=== PATIENT | female | born 1950 | race Caucasian/White ===

== ENCOUNTER 2016-11-03 08:34 | Inpatient (IN) | payer OTHER ==
[2016-11-03] VITALS (10 sets, daily range): BP systolic 119–147; BP diastolic 78–94; PULSE 65–82; RESP 14–20; O2SAT 96–100
[~2016-11-03] VITALS: Ht 165.1 cm; Wt 54.6 kg
--- NOTE | 2016-11-03 09:01 | ED.REPORT ---
HPI-General Illness Date of Service Nov 03, 2016 ED Provider: Lin Muñoz MD Patient is a 66 year old female who presents to the ED complaining of constant, diffuse lower back pain onset approximately 2 weeks ago . She describes her pain as waxing and waning but unlike today, she is normally able to tolerate it. She describes the onset of her pain as gradual that started as body aches and then localizing to her lower back area. She has not noticed anything that relieves or exacerbates her pain. Associated symptoms include loss of appetite and chills. She denies any mechanism of injury, change in bowel activity, weight gain, SOB, cough, palpitations, dysuria, or any other symptoms. She tried to see her PCP one week ago for her symptoms but was unable to get an appointment. She was seen at Urgent Care yesterday and her blood work raised concern for her kidney functioning. She was directed to come to the ED last night from Urgent Care but declined. Nursing Notes Stated Complaint: ABDOMINAL PAIN/POSS KIDNEY INFECTION Chief Complaint: General Complaint Nursing Notes Reviewed: Yes Allergies: Coded Allergies: clindamycin (Verified Allergy, Unknown, 11/03/16) prednisone (Verified Allergy, Unknown, 11/03/16) acetaminophen (Verified Adverse Reaction, Intermediate, Nausea, "it does nothing", 11/03/16) aspirin (Verified Adverse Reaction, Intermediate, 11/03/16) ibuprofen (Verified Adverse Reaction, Intermediate, Nausea, "It doesn't work", 11/03/16) permethrin (Verified Adverse Reaction, Intermediate, Nausea, 11/03/16) codeine (Verified Adverse Reaction, Unknown, Nausea,Vomiting, flushed, ) morphine (Verified Adverse Reaction, Unknown, "It didn't work at all", ) Scheduled Calcium Carbonate/Vitamin D3 (Calcium + Vitamin D Tablet) 1 Each Tablet 1 EACH PO DAILY Multivits-Min/FA/Lycopene/Lut (Centrum Silver Tablet) 1 Each Tablet 1 EACH PO DAILY General Time Seen by MD: 08:58 Chief Complaint Back pain Hx Obtained From: Patient Arrived By: Walk-in Sudden in Onset?: No Onset Occurred: More than a week ago... (2 weeks) Symptom Duration: Since onset Severity: Current: Moderate Severity: Maximum: Moderate Recent Healthcare: Recent doctor visit (visited yesterday) Similar Sx Previous: No Past Medical History Past Medical History Notes: Dr. Wong Hendrix is PCP Does not want morphine, but reports that narcotics are fine. Cannot take Aspirin, Ibuprofen, or Tylenol. Aspirin causes rectum bleeding. Ibuprofen and Tylenol cause nausea and possible vomit. Past Medical History No Prx medications. No other pertiennt medical history. Mamgogram and coloncospoy routinely. Allergic to unspecified antibiotic. Reports: Cancer (Breast) Past Surgical History Surgical removal of breast cancer Reports: Cholecystectomy (1974), Denies: Hysterectomy Family History Son has cancer. Smoking History Never Smoker Social History Alcohol Use: "Social" (shot glass of beer) Ambulatory Status Independent Review of Systems Loss of appetite. Denies change in bowel activity. Denies weight gain Denies heat flashes Full Review of Systems Constitutional: Reports: Chills, Denies: Recent wt loss Respiratory: Denies: Non-productive cough, Shortness of breath Cardiovascular: Denies: Palpitations Female: Denies: Dysuria Musculoskeletal: Reports: Back pain Complete sys rev & neg: except as marked. Physical Exam Vital Signs Vital Signs Date Time Temp Pulse Resp B/P Pulse Ox O2 Delivery O2 Flow Rate FiO2 11/03/16 11:18 36.0 73 16 119/78 99 Room Air 11/03/16 08:45 36.7 82 14 123/90 99 Room Air Initial VS: Reviewed General/Constitutional: Awake, Alert Appearance / Presentation: Positive: Frail Head / Eyes: Atraumatic, Normocephalic, PERRL, EOMI Mouth: Positive: Mucous membranes dry Respiratory / Chest: Atraumatic, Breath sounds NL, Breath sounds = bilat, No respiratory distress, No rales, No rhonchi, No wheezing Cardiovascular: Heart rate NL, Regular rhythm, Heart sounds NL, No murmurs Organomegaly / Mass / Hernia: Positive: Mass present (Mass in right flank into right lower quadrant that is tender.) Dramatic right flank pain in abdomen. CVA tenderness ,sharp on right side. Lower Extremity / Pelvis / MS: Neurologic intact, No edema Skin: Atraumatic, Color NL, Warm, Dry Neurologic: Oriented X3, Speech NL Abnormal Mood/Affect: Positive: Flat affect Interpretation & Diagnostics Lab Results Interpretation Result Diagram: 11/03/16 0950 11/03/16 1633 Test 11/03/16 09:30 11/03/16 09:32 11/03/16 09:50 Urine Random Creatinine 42mg/dL (15-278) Urine Random Sodium 10mEq/L Urine Color Yellow (YELLOW) Urine Appearance Clear (CLEAR,HAZY) Urine pH 6.0 (5.0-8.0) Urine Specific Usk 1.005 (1.003-1.035) Urine Protein Tracemg/dL (NEG,TRACE) Urine Glucose (UA) Negativemg/dL (NEGATIVE) Urine Ketones Negativemg/dL (NEGATIVE) Urine Occult Blood Trace (NEGATIVE) Urine Nitrite Negative (NEGATIVE) Urine Bilirubin Negative (NEGATIVE) Urine Urobilinogen Normalmg/dL (NORMAL) Urine Leukocyte Esterase Large (NEGATIVE) Urine RBC 0-2/hpf (0-2) Urine WBC 11-50/hpf (0-5) Urine Epithelial Cells Occasional/hpf (NONE-MOD) Urine Crystals None seen (NONE SEEN) Urine Bacteria Moderate/hpf (NONE-FEW) Urine Hyaline Casts None/lpf (NONE) Urine Granular Casts None seen (NONE SEEN) Urine Waxy Casts None seen (NONE SEEN) Urine Red Blood Cell Casts None seen (NONE SEEN) Urine White Blood Cell Casts None seen (NONE SEEN) Urine Mucus None seen (None Seen) Urine Trichomonas None seen (NONE SEEN) Urine Yeast None (NONE SEEN) Urinalysis Comment None Urine Culture Reflexed Indicated White Blood Count 19.1th/mm3 (3.8-10.1) Red Blood Count 3.81mil/mm3 (3.90-5.20) Hemoglobin 11.8g/dL (12.0-15.6) Hematocrit 32.8% (35.0-46.0) Mean Corpuscular Volume 86.1fL (81-100) Mean Corpuscular Hemoglobin 31.0pg (27.0-35.0) Mean Corpuscular Hemoglobin Concent 36.0% (32.0-37.0) Red Cell Distribution Width 13.6% (12.3-15.4) Platelet Count 525bil/L (150-400) Neutrophils (%) (Auto) 91% (40-74) Lymphocytes (%) (Auto) 2% (14-46) Monocytes (%) (Auto) 4% (4-12) Eosinophils (%) (Auto) 0% (0-5) Basophils (%) (Auto) 0% (0-3) Metamyelocytes % 2% (0-0) Myelocytes % 1% (0-0) Prothrombin Time 11.5sec (8.1-12.5) Prothromb Time International Ratio 1.07ratio Activated Partial Thromboplast Time 33.6sec (22.8-33.0) Urine Osmolality 225mOs/kH2O (250-1200) Osmolality 286 (275-300) Lactic Acid Level 0.7mmol/L (0.4-2.0) Magnesium Level 2.5mg/dL (1.6-2.6) Total Bilirubin 1.4mg/dL (0.0-1.2) Aspartate Amino Transf (AST/SGOT) 21U/L (0-50) Alanine Aminotransferase (ALT/SGPT) 27U/L (0-32) Alkaline Phosphatase 125U/L (25-165) Total Protein 6.1g/dL (6.4-8.4) Albumin 2.8g/dL (3.4-5.0) Lipase 194U/L (13-60) Procalcitonin 2.88ng/mL (0.00-0.08) ECG Interpretation ECG Interpretation: Rate is 77. Left atrial enlargement. No ischemia. Time: 10:54 Interpreted by: ED physician CT Abd / Pelvis Interpretation IMPRESSION: 1. Right renal enlargement, suggestive of infarct versus edema versus inflammation/infection. 2. No hydronephrosis. 3. Appendix not seen. No evidence of appendicitis. Dictated by: Sony Bourgeois M.D. on 11/03/2016 at 12:15 Re-Eval/Medical Decision Med Decision/Clinical Course 11:00 labs [facility] available: lipase 157 Na 121 Creat 3.98/BUN 89 K 3.0 h/h platelets 527 WBC 19.2 with 80%PMN Seen at urgent care yesterday with recommendation to come to ER for additional eval and admit. Complaining of flank back low pelvic pain. Labs yesterday revealed an elevated white count hyponatremia mild anemia thrombocytosis and an elevated lipase. CT scan of the belly does show right renal inflammation unclear etiology. She does have acute renal failure. Does not complain of dysuria but does have bacteria in her urine. In light of the elevated white count and renal pathology appreciated on CT scan she is started on Zosyn for presumed UTI and will need additional workup. Unclear explanation for the hyponatremia acute renal failure and hematologic abnormalities. May benefit from oncology consultation as well. Source of Hx: Old records Time of Eval: 10:33 Re-Evaluation/Progress Note: Rechecked patient who has not consumed contrast yet Explained that kidneys are not functioning like they are supposed to. Explained plan for admission. Patient understands and agrees with the plan. All questions addressed. Consultation #1: Referral / Consult Name: Dona Pineda MD Consulted With: Hospitalist Call Returned at: 13:02 Note: Discussed patient case with Dr. Pineda who accepts patient admit. Consultation #2: Referral / Consult Name: Andres Fabian MD Consulted With: Nephrology Call Returned at: 13:08 Note: Discussed patient case with Dr. Lucas who agrees to consult on the patient. Counseled Regarding: Diagnosis, Lab results, Need for follow-up, Need for admission Discharge & Departure Primary Impression: Pancreatitis Chronicity: acute Pancreatitis type: unspecified pancreatitis type Acute pancreatitis complication: unspecified Qualified Code: K85.90 - Acute pancreatitis without necrosis or infection, unspecified Additional Impressions: Hyponatremia Acute renal failure Acute renal failure type: unspecified Qualified Code: N17.9 - Acute kidney failure, unspecified Leukocytosis Leukocytosis type: unspecified Qualified Code: D72.829 - Elevated white blood cell count, unspecified Thrombocytosis UTI (urinary tract infection) Urinary tract infection type: site unspecified Hematuria presence: without hematuria Qualified Code: N39.0 - Urinary tract infection, site not specified Disposition: ADMITTED TO HOSPITAL Discharge Condition All VS Reviewed: Yes Condition: Stable Referrals: NOPCP (PCP) James Hendrix MD Attestation Portions of this note were transcribed by Kev Armas and Tucker Garcia. I, Dr. Muñoz personally performed the history, physical exam and medical decision- making; I reviewed and confirmed the accuracy of the information in the transcribed note. Signed by: Venecia Londono, 11/03/2016, 1318. copies to: James Hendrix MD, Shawna L MD Nov 03, 2016 09:01 Kev Armas Nov 03, 2016 09:07 TCUKER GARCIA Nov 03, 2016 13:54 blood cell count, unspecified Thrombocytosis UTI (urinary tract infection) Urinary tract infection type: site unspecified Hematuria presence: without hematuria Qualified Code: N39.0 - Urinary tract infection, site not specified Disposition: ADMITTED TO HOSPITAL Discharge Condition All VS Reviewed: Yes Condition: Stable Referrals: NOPCP (PCP) James Hendrix MD Attestation Portions of this note were transcribed by Kev Armas and Tucker Garcia. I, Dr. Muñoz personally performed the history, physical exam and medical decision- making; I reviewed and confirmed the accuracy of the information in the transcribed note. Signed by: Venecia Londono, 11/03/2016, 1318. copies to: James Hendrix MD, Shawna L MD Nov 03, 2016 09:01 Kev Armas Nov 03, 2016 09:07 TUCKER GARCIA Nov 03, 2016 13:54
[2016-11-03] MEDS ORDERED: 0.9% Sodium Chloride 1,000 ML IV ONE ×2 (09:27→14:35)
[2016-11-03] MEDS ORDERED: Ondansetron 2 mg/mL 2 mL Inj IVPUSH ONE (09:30)
[2016-11-03 09:46] LABS: APPEARANCE,URINE CLEAR (CLEAR,HAZY); COLOR,URINE YELLOW (YELLOW); OCCULT BLOOD,URINE TRACE (NEGATIVE); UROBILINOGEN,URINE NORMAL (NORMAL)
[2016-11-03 09:59] LABS: Mean Corpuscular Volume 86.1 fL (81-100); Platelet Count 525 bil/L (150-400)
[2016-11-03] MEDS: HYDROmorphone 0.5 mg/0.5 mL iSecure Syringe IVPUSH PRN ×3 (10:04→15:17)
[2016-11-03 10:14] LABS: INR 1.07 ratio
[2016-11-03] MEDS ORDERED: Iohexol 300 mg/mL 30 mL Inj PO ONE (10:15)
[2016-11-03 10:49] LABS: BASOPHILS % (AUTO) 0 % (0-3); EOSINOPHILS % (AUTO) 0 % (0-5); MONOCYTES % (AUTO) 4 % (4-12); NEUTROPHILS % (AUTO) 91 % (40-74)
[2016-11-03 10:57] LABS: Magnesium 2.5 mg/dL (1.6-2.6)
[2016-11-03] MEDS ORDERED: Piperacillin-Tazo 3.375 Gm Inj 3.375 GM in Dextrose 5% Minibag Plus 50 ML IV ONE (11:20)
--- NOTE | 2016-11-03 12:19 | DRSVH ---
PROCEDURE: CT ABDOMEN AND PELVIS WITHOUT CONTRAST ([id number]) INDICATIONS: Right CVA/Right lower quadrant pain TECHNIQUE: After the administration of oral contrast, 5 mm thick sections acquired from the diaphragms to the sy mphysis. 5 mm coronal and sagittal reformats were performed. For radiation dose reduction, the foll owing was used: automated exposure control, adjustment of mA and/or kV according to patient size. COMPARISON: None. FINDINGS: Image quality: Excellent. ABDOMEN: Lung bases: Lung bases are clear. Heart size is normal. Solid organs: Liver and spleen are normal in size. Gallbladder is surgically absent. Pancreas is n ormal in size. No adrenal nodules. The right kidney is enlarged, and is within the right lower quadr ant/right hemipelvis. Mild perinephric fat stranding is present bilaterally. No hydronephrosis. Peritoneum and bowel: Bowel loops demonstrate normal wall thickness and caliber. No free fluid or a ir. Appendix not seen. No evidence of appendicitis. Nodes and vessels: No retroperitoneal or mesenteric adenopathy by size criteria. Aorta and inferior vena cava are normal in size. Miscellaneous: No ventral hernias. PELVIS: Genitourinary: Bladder wall thickness is normal. Miscellaneous: No inguinal hernias or adenopathy. Bones: No suspicious bony lesions. No vertebral body compression fractures. IMPRESSION: 1. Right renal enlargement, suggestive of infarct versus edema versus inflammation/infection. 2. No hydronephrosis. 3. Appendix not seen. No evidence of appendicitis. Dictated by: Sony Bourgeois M.D. on 11/03/2016 at 12:15 Approved by: Sony Bourgeois M.D. on 11/03/2016 at 12:18
[2016-11-03] MEDS ORDERED: Ondansetron 2 mg/mL 2 mL Inj IVPUSH PRN (13:15)
[2016-11-03] MEDS ORDERED: CALC-140 PO (13:16)
[2016-11-03] MEDS ORDERED: MULT-1073 PO (13:16)
[2016-11-03] MEDS: 0.9% Sodium Chloride 1,000 ML IV SCH ×2 (13:43→16:11)
--- NOTE | 2016-11-03 13:59 | PCM.HPMED ---
Subjective Date of Service Nov 03, 2016 Primary Provider: Admitting Physician: Primary Care Physician: Breana Attending Physician: History of Present Illness: Chief Complaint: Low back pain HISTORY was OBTAINED FROM PATIENT - poor historian / [employer] NOTES History of present illness: 66-year-old female, seen in urgent care yesterday for 2 week of back painfound to have hyponatremia and elevated creatinine at that time, presents to ER today with ongoing low back pain for 2 weeks, constant pain associated with intermittent worse pain, associated diffuse aches , no associated trauma. Drinking water with electrolytes, loss of appetite, chills. No dysuria, good UOP. no prior UTI, no prior vaginal yeast infection. thirsty. poor memory. no worsening of back pain w movement. right greater than left tenderness lower L paraspinous region In the ER Vital signs stable, Zosyn and Dilaudid 1 L normal saline and Zofran, Dr. Son from nephrology was called Review of Systems - none of the following - F/sick contact / wt change/ JONES / lightheaded / dizziness / sob / cough / cp / acid reflux / abdominal pain/n/v/ diarrhea / bleeding/bruising / leg swelling / change in voiding / yeast infections / rash Ambulates alone, shaky gait associated w. joint / arthritis FAMILY HX: Son with cancer hematologic SOCIAL HX: Social EtOH, ?more etoh to relieve current pain, [facility] MEDICATIONS: Coded Allergies: clindamycin (Verified Allergy, Unknown, 11/03/16) codeine (Verified Allergy, Unknown, 11/03/16) morphine (Verified Allergy, Unknown, 11/03/16) permethrin (Verified Allergy, Unknown, 11/03/16) prednisone (Verified Allergy, Unknown, 11/03/16) Tylenol aspirin ibuprofen PAST MEDICAL/SURGICAL HISTORY: Cholecystectomy breast cancer, hxof tamoxifen finished course TBI x 3 anxiety arthritis vsion impairment Exam on admission: on room air NAD A and O x 3 mood affect WNL NC/AT / No icterus / No injected eyes / EOMI PERRL / No pharyngeal lesions/ No oral lesions / hearing intact Supple neck CTAB equal chest rise / no accessory muscle use / speaks in full sentences / no RRW RRR S1 S2 / no MRG / 2+ radial pulses Soft nt nd + BS no hepatosplenomegaly Lower extremities - No edema No cyanosis No ecchymosis No rash / No jaundice WALLACE Symmetrical facies sits up by self tender to paraspinous lower L spine/sacroiliac/iliac crest area right greater than left, no pain to costoverterbral areas STUDIES: lactic acid normal UA positive leukocytosis, moderate bacteria, no yeast CULTURE - urine, bloody pending LFT bilirubin 1.4, lipase 194 Cr 3.1 INR 1.07, PTT 33.6 IMAGING: PROCEDURE: CT ABDOMEN AND PELVIS WITHOUT CONTRAST ([id number]) INDICATIONS: Right CVA/Right lower quadrant pain TECHNIQUE: After the administration of oral contrast, 5 mm thick sections acquired from the diaphragms to the symphysis. 5 mm coronal and sagittal reformats were performed. For radiation dose reduction, the following was used: automated exposure control, adjustment of mA and/or kV according to patient size. COMPARISON: None. FINDINGS: Image quality: Excellent. ABDOMEN: Lung bases: Lung bases are clear. Heart size is normal. Solid organs: Liver and spleen are normal in size. Gallbladder is surgically absent. Pancreas is normal in size. No adrenal nodules. The right kidney is enlarged, and is within the right lower quadrant/right hemipelvis. Mild perinephric fat stranding is present bilaterally. No hydronephrosis. Peritoneum and bowel: Bowel loops demonstrate normal wall thickness and caliber. No free fluid or air. Appendix not seen. No evidence of appendicitis. Nodes and vessels: No retroperitoneal or mesenteric adenopathy by size criteria. Aorta and inferior vena cava are normal in size. Miscellaneous: No ventral hernias. PELVIS: Genitourinary: Bladder wall thickness is normal. Miscellaneous: No inguinal hernias or adenopathy. Bones: No suspicious bony lesions. No vertebral body compression fractures. IMPRESSION: 1. Right renal enlargement, suggestive of infarct versus edema versus inflammation/infection. 2. No hydronephrosis. 3. Appendix not seen. No evidence of appendicitis. Active issues and reason for admission Left shift, leukocytosis, abnormal right kidney findings, acute kidney injury, treating as UTI --rocephine for now, s/p zosyn in ER Hyponatremia and [place] due to dehydration --IVF NS 125 / hr, pending nephrology, pending TSH, pending U lytes Thrombocytosis, likely reactive Mild normocytic anemia, monitor --pending TSH elevated lipase, monitor --island chart consistent w/ hx of EtOH use, prior cholecystectomy, no abdominal pain/no vomiting, unlikely pancreatitis --advance diet Chronic issues known prior to admission, present on admission EtOH social, and for current pain, no withdrawal hx adverse reactions w/ NSAID-LGI hx and morphine poor historian, TBI hx --ativan/dilaudid Diet clear then regular DVT prophylaxis heparin scd ambulate Code full Disposition Assessment and plan were discussed with patient Allergies Coded Allergies: clindamycin (Verified Allergy, Unknown, 11/03/16) prednisone (Verified Allergy, Unknown, 11/03/16) acetaminophen (Verified Adverse Reaction, Intermediate, Nausea, "it does nothing", 11/03/16) aspirin (Verified Adverse Reaction, Intermediate, 11/03/16) ibuprofen (Verified Adverse Reaction, Intermediate, Nausea, "It doesn't work", 11/03/16) permethrin (Verified Adverse Reaction, Intermediate, Nausea, 11/03/16) codeine (Verified Adverse Reaction, Unknown, Nausea,Vomiting, flushed, ) morphine (Verified Adverse Reaction, Unknown, "It didn't work at all", ) H Social History Smoking Status: Never Smoker Exam Vital Signs Vital Sign - Last Date Time Temp Pulse Resp B/P Pulse Ox O2 Delivery O2 Flow Rate FiO2 11/03/16 11:18 36.0 73 16 119/78 99 Room Air Lab and Diagnostics Result Diagram: 11/03/16 0950 11/03/16 0950 Dona Pineda MD Nov 03, 2016 13:12
--- NOTE | 2016-11-03 14:11 | NUR ---
Admit nurse note Admission assessment completed in the ER. Pt. expresses frustration about being asked a lot of questions by multiple people and c/o feeling fatigued and overwhelmed to the point that it feels hard to concentrate enough to hear. I have to sit quite close to pt. in order for her to hear my questions, but she states she does not usually experience difficulty hearing. Pt. c/o feeling unwell x 3 weeks. During that three weeks she has been drinking much less alcohol, "about a third of a bottle." PT. 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 She states she has advance directives at the [employer] office in [place], does not have a copy available for use in hospital, but would prefer they not be contacted for a copy unless her state of health is seriously in jeopardy. She c/o feeling dehydrated, and her lips appear dry and cracked. Drink of water given per diet order and NS increased to bolus based on Dr. Pineda's verbal instructions. Allergies verified and sticker placed on name band. Med history obtained based on pt. report. PT. oriented to room and plan of care. Report given to Lupe Willingham.
--- NOTE | 2016-11-03 15:03 | NUR ---
Admit: Patient arrived to [facility] @ approx 1500 via wheelchair. Ambulated to toilet, then to bed. Patient states she is feeling "weak". Report low back pain 8/10 on pain scale. Denies nausea, dizziness, lightheadedness. Requested patient to call for assistance to BR. Patient agreed. Call light within reach. Addendum: 11/03/16 at 1520 by BETO GAMBOA RN Dilaudid administered for pain. Will continue to assess.
--- NOTE | 2016-11-03 15:20 | NUR ---
Off Unit: Transported to [facility] via wheelchair accompanied by transporter @ approx 1521.
--- NOTE | 2016-11-03 15:41 | PCM.CHPMED ---
Subjective Date of Service: Nov 03, 2016 Provider requesting consult: Dona Pineda MD Primary Physician: Admitting Physician: Dona Pineda MD Primary Care Physician: Breana Attending Physician: Dona Pineda MD Admit Status: From the Emergency Department Chief Complaint: Chief Complaint: back pain and chills History of Present Illness: Patient is a previously healthy 66yof with no significant notable past medical history. She is currently on no medication and denies any chronic illness. The patient states that ten days ago she began to notice back pain, which has progressively become worse. The pain does not appear to be position dependent and while it gets slightly better on occasion the trend is worse. The patient denies any injury. She states that she has developed chills the last several days but she denies any difficulty with urination, and urinary urgency or frequency. She denies chronic urinary track infections in the past. She has never been told she had blood or protein in her urine. She denies past medical history including diabetes, hypertension, gout, hepatitis, lupus, kidney stones. She has been drinking plenty of fluids including reportedly 5-6 16 ounce Smart barth yesterday. She patient denies taking ibuprofen or naproxen for the pain, she states that she has been drinking half a beer a day for the pain. Review of Systems: A comprehensive review of system was preformed and all are negative except for what PMH Past Medical History Dr. 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 breast cancer, hx of tamoxifen finished course TBI x 3 anxiety arthritis vision impairment Surgical History open cholecystectomy and appendectomy in s Surgical removal of breast cancer Home Medications vitamins Allergies: Coded Allergies: clindamycin (Verified Allergy, Unknown, 11/03/16) prednisone (Verified Allergy, Unknown, 11/03/16) acetaminophen (Verified Adverse Reaction, Intermediate, Nausea, "it does nothing", 11/03/16) aspirin (Verified Adverse Reaction, Intermediate, 11/03/16) ibuprofen (Verified Adverse Reaction, Intermediate, Nausea, "It doesn't work", 11/03/16) permethrin (Verified Adverse Reaction, Intermediate, Nausea, 11/03/16) codeine (Verified Adverse Reaction, Unknown, Nausea,Vomiting, flushed, ) morphine (Verified Adverse Reaction, Unknown, "It didn't work at all", ) Family History Family History mother had diabetes mellitus son has a rare blood born cancer Social History Hx Alcohol Use: YesAlcoholic Drinks Per Day: regular light drinkerHx Substance Use: NoHx Tobacco Use: No Smoking Status: Never Smoker Living Arrangement: with Family (currently in [place] with her son while he has treatment for cancer) Exam Vital Signs Vital Sign - Last Date Time Temp Pulse Resp B/P Pulse Ox O2 Delivery O2 Flow Rate FiO2 11/03/16 11:18 36.0 73 16 119/78 99 Room Air Additional Information: general: thin female appearing approximately the stated age alert and oriented in no acute distress in ED Eyes: PERRLA, EOMI, anicteric sclera, noninjected conjunctiva HENT: NC/AT, MMM without central cyanosis, no cobblestoning mucosa Neck: supple, no lymphadenopathy, trachea midline CV: RRR, no murmurs rubs or gallops Lungs: CTAB, without wheezing rales or rhonchi Abdomen: diagonal surgical scar consistent with prior cholecystectomy, hyperactive bowel sounds, nontender without organomegaly or masses Back: no pain on palpation of the spine, positive yvan's sign with percussion of left and right flanks Ext: pulses intact bilaterally at radial and dorsalis pedis without edema, cyanosis or clubbing Skin: Warm and dry : no greene in place Neuro: no focal neurologic deficit, mild delayed speech and very mild slurring or words Psych: normal mood and affect Lab and Diagnostics Result Diagram: 11/03/16 0950 11/03/16 0950 X-Rays, CTs and MRIs CT ABDOMEN AND PELVIS WITHOUT CONTRAST ([id number]) IMPRESSION: 1. Right renal enlargement, suggestive of infarct versus edema versus inflammation/infection. 2. No hydronephrosis. 3. Appendix not seen. No evidence of appendicitis. Dictated by: Sony Bourgeois M.D. on 11/03/2016 at 12:15 Approved by: Sony Bourgeois M.D. on 11/03/2016 at 12:18 Assessment & Plan Assessment Patient is a previously healthy 66yof with no significant notable past medical history states that ten days ago she began to notice back pain, which has progressively become worse. 1. pyelonephritis - SIRS criteria not met and normal lactic acid 0.7 - patient has positive Yvan's sign on physical exam - UA shows WBC and bacteria - CBC with 19.1k WBC consistent with infection and 525k PLTs likely stress phase reactant - CT shows perinephric fat stranding and other inflammatory changes consistent with infection, incidental finding of irregular location of right kidney in right lower quadrant which the patient has never heard before - received a dose of Zosyn in the ED - switch to a cephalosporin like ceftriaxone 2g every 24hours to avoid nephrotoxic effects of Zosyn 2. acute kidney injury - no history of chronic kidney disease reported but no records available - no risk factors for chronic kidney disease obtained in history - Creatinine of 3.15 at admission - physical exam patient appears mildly hypovolemic with good blood pressure - FENA at admission of 0.6% with urine sodium of 10 consistent with pre-renal/ dehydration - NS at 80mL/hr and recheck sodium Q6 to avoid over correction of hyponatremia - NS 2L given in ED - renal US and doppler ordered - urine osmolarity 225 and sodium osmolarity 286 consistent with dehydration and hemoconcentration - orthostatic BP measure ordered 3. hyponatremia and hypochloremia - CMP Sodium 125 - avoid over correction more than 8 mEq per 24hr period - NS at 80mL/hr and recheck sodium Q6 to avoid over correction of hyponatremia 4. hypokalemia - potassium of 3.4 at admission - 40mEq ordered - replete as necessary Problems: Pain Evaluation: Adequate Pain Control Resuscitation Status: CPR: Attempt Resuscitation Antoni Quintero DO Nov 03, 2016 14:11
[2016-11-03 15:42] LABS: OSMOLALITY, URINE 225 mOs/kH2O (250-1200)
[2016-11-03] MEDS ORDERED: Potassium Chloride 20 mEq/15 mL 15mL Oral Soln PO ONE (16:10)
--- NOTE | 2016-11-03 16:13 | DRSVH ---
PROCEDURE: US RENAL SONOGRAM INDICATIONS: suspected renal vein thrombosis and infarction. TECHNIQUE: Real-time scanning was performed of the kidneys and bladder, with image documentation. COMPARISON: [facility], CT, CT ABD PELVIS WO CON, 11/03/2016, 12:00. FINDINGS: Kidneys: Kidneys are normal in size. Right kidney measures 12.0 cm long; left kidney measures 11.9 cm long. Right renal cortical thickness is 1.6 cm; left renal cortical thickness is 1.6 cm. Renal c ortical echotexture is normal. No hydronephrosis or nephrolithiasis. No suspicious solid mass lesio ns. Color flow Doppler demonstrates normal renal perfusion bilaterally and renal veins are patent. Bladder: Pre-void bladder volume is 67 mL. Post-void residual is 0 mL. Pre-void images demonstrate no intraluminal masses or stones. On pre-void images, left ureteral jets are noted with color Doppl er interrogation. (Of note, ureteral jets may not be detectable in up to 25% of cases due to insuffi cient differences in specific gravity between ureteral and bladder urine). Miscellaneous: No free pelvic fluid. IMPRESSION: 1. Normal appearance of the kidneys bilaterally. 2. Doppler assessment demonstrating normal renal perfusion and patency of the renal veins bilaterally . 3. The appearance of enlargement of the right kidney on a recent CT scan is likely caused by orientat ion which is mildly rotated. Dictated by: Gabe Rosenthal [facility] Interpreted: Rod Nelson MD on 11/03/2016 at 16:06 Transcribed by: TIMOTHY on 11/03/2016 at 16:13 Approved by: Rod Nelson M.D. on 11/03/2016 at 16:43
[2016-11-03] MEDS: Heparin 5,000 Unit/mL Inj SUBQ SCH (16:22)
--- NOTE | 2016-11-03 17:22 | NUR ---
Blood Work: Dr Fabian notified of BMP and D-dimer results.
[2016-11-03] MEDS ORDERED: Potassium Chloride 20 mEq SR Tablet PO ONE (21:00)
--- NOTE | 2016-11-03 22:59 | NUR ---
Activity Received report at 2010, pt alert and oriented but tired. Reported some nausea but ate saltines w/o issue. Will monitor, left room with call light at bedside.
[2016-11-04] VITALS (8 sets, daily range): BP systolic 127–141; BP diastolic 77–91; PULSE 73–83; RESP 16–20; O2SAT 97–100
[2016-11-04] MEDS: Heparin 5,000 Unit/mL Inj SUBQ SCH ×3 (00:08→20:03)
--- NOTE | 2016-11-04 05:19 | NUR ---
Diarrhea Pt complained of diarrhea since the afternoon, spoke with night hospitalist, will do stool culture. Will monitor.
[2016-11-04] MEDS: HYDROmorphone 0.5 mg/0.5 mL iSecure Syringe IVPUSH PRN ×3 (05:54→20:04)
[2016-11-04 06:08] LABS: Mean Corpuscular Hemoglobin 30.6 pg (27.0-35.0); Mean Corpuscular Volume 89.1 fL (81-100); Platelet Count 640 bil/L (150-400)
[2016-11-04 06:35] LABS: BASOPHILS % (AUTO) 0 % (0-3); EOSINOPHILS % (AUTO) 0 % (0-5); MONOCYTES % (AUTO) 6 % (4-12); NEUTROPHILS % (AUTO) 80 % (40-74)
[2016-11-04] MEDS: cefTRIAXone Inj 2,000 MG in Dextrose 5% Minibag Plus 50 ML IV SCH (07:49)
--- NOTE | 2016-11-04 09:03 | DRSVH ---
PROCEDURE: X-RAY CHEST ONE VIEW, PORTABLE ([id number]) INDICATIONS: sepsis TECHNIQUE: One view of the chest was acquired. COMPARISON: [facility], , CHEST 2 VIEW, 07/05/2016, 15:18. FINDINGS: Surgical changes and devices: Right breast and axillary surgical clips. Lungs and pleura: No pleural effusions or pneumothorax. Lungs are clear. Mediastinum: Mediastinal contours appear normal. Heart size is normal. Bones and chest wall: No suspicious bony lesions. Overlying soft tissues appear unremarkable. IMPRESSION: No acute cardiopulmonary disease. Dictated by: Gabe Rosenthal [facility] Interpreted: Kristina Rodriguez MD on 11/04/2016 at 9:02 Transcribed by: SILVER on 11/04/2016 at 9:03 Approved by: Kristina Rodriguez MD, PhD on 11/04/2016 at 16:43
[2016-11-04 09:15] LABS: Free Thyroxine Index 1.1 (1.2-4.9); Thyroxine (T4) 3.7 ug/dL (4.5-12.0)
--- NOTE | 2016-11-04 09:19 | DRSVH ---
PROCEDURE: US VENOUS LEG DUPLEX BILATERAL INDICATIONS: elevated D-dimer TECHNIQUE: Real-time imaging, as well as color and pulse Doppler interrogation, were performed of the deep veins of both legs from the inguinal ligament to the popliteal fossa. COMPARISON: None. FINDINGS: The deep veins are normally compressible, and free of intraluminal thrombus. Color and pu lse Doppler demonstrate normal phasic intravascular flow. There is normal augmentation response to d istal compression maneuver. IMPRESSION: 1. No evidence of deep venous thrombosis in the right or left lower extremity. Dictated by: Mateo Workman M.D. on 11/04/2016 at 9:11 Approved by: Mateo Workman M.D. on 11/04/2016 at 9:18
[2016-11-04] MEDS: 0.9% Sodium Chloride 1,000 ML IV SCH ×3 (12:39→21:15)
--- NOTE | 2016-11-04 14:38 | PCM.PNNEPH ---
Subjective Date of Service Nov 04, 2016 Subjective The patient states that she continues to be cold. The patient believes her back pain is improving at this point, and the pain is better on percussion of the kidneys. The patient denies any nausea or vomiting. Patient denies abdominal pain. Exam Vital Signs Vital Sign - Last Date Time Temp Pulse Resp B/P Pulse Ox O2 Delivery O2 Flow Rate FiO2 11/04/16 13:34 36.3 76 16 139/85 100 Room Air Intake and Output 11/03/16 11/03/16 11/04/16 Cumulative From/Thru 15:00 23:00 07:00 11/03/16 08:45 - 11/04/16 05:36 Intake Total 1000 ml 1673 ml 815 ml 3488 ml Output Total 250 ml 100 ml 350 ml Balance 750 ml 1573 ml 815 ml 3138 ml Intake Oral 500 ml 500 ml IV Total 1000 ml 1173 ml 815 ml 2988 ml Output Urine Total 250 ml 100 ml 350 ml # Bowel Movements 0 0 Exam general: thin female appearing approximately the stated age alert and oriented in no acute distress in ED Eyes: PERRLA, EOMI, anicteric sclera, noninjected conjunctiva HENT: NC/AT, MMM without central cyanosis, no cobblestoning mucosa Neck: supple, no lymphadenopathy, trachea midline CV: RRR, no murmurs rubs or gallops Lungs: CTAB, without wheezing rales or rhonchi Abdomen: diagonal surgical scar consistent with prior cholecystectomy, hyperactive bowel sounds, nontender without organomegaly or masses Back: no pain on palpation of the spine, positive yvan's sign with percussion of left and right flanks Ext: pulses intact bilaterally at radial and dorsalis pedis without edema, cyanosis or clubbing Skin: Warm and dry : no greene in place Neuro: no focal neurologic deficit, mild delayed speech and very mild slurring or words Psych: normal mood and affect Lab and Diagnostics Result Diagram: 11/04/16 0600 11/04/16 1120 X-Rays, CTs and MRIs CT ABDOMEN AND PELVIS WITHOUT CONTRAST ([id number]) IMPRESSION: 1. Right renal enlargement, suggestive of infarct versus edema versus inflammation/infection. 2. No hydronephrosis. 3. Appendix not seen. No evidence of appendicitis. Dictated by: Sony Bourgeois M.D. on 11/03/2016 at 12:15 Approved by: Sony Bourgeois M.D. on 11/03/2016 at 12:18 Additional Diagnostics US RENAL SONOGRAM IMPRESSION: 1. Normal appearance of the kidneys bilaterally. 2. Doppler assessment demonstrating normal renal perfusion and patency of the renal veins bilaterally. 3. The appearance of enlargement of the right kidney on a recent CT scan is likely caused by orientation which is mildly rotated. Dictated by: Gabe Rosenthal [facility] Interpreted: Rod Nelson MD on 11/03/2016 at 16:06 Transcribed by: TIMOTHY on 11/03/2016 at 16:13 Approved by: oRd Nelson M.D. on 11/03/2016 at 16:43 US VENOUS LEG DUPLEX BILATERAL IMPRESSION: 1. No evidence of deep venous thrombosis in the right or left lower extremity. Dictated by: Mateo Workman M.D. on 11/04/2016 at 9:11 Approved by: Mateo Workman M.D. on 11/04/2016 at 9:18 Plan Impression Patient is a previously healthy 66yof with no significant notable past medical history states that ten days ago she began to notice back pain, which has progressively become worse. 1. pyelonephritis 2. acute kidney injury 3. hyponatremia and hypochloremia 4. hypokalemia Plan: 1. pyelonephritis - SIRS criteria not met and normal lactic acid 0.7 - patient has positive Yvan's sign on physical exam - UA shows WBC and bacteria - CBC with 19.1k WBC consistent with infection and 525k PLTs likely stress phase reactant - CT shows perinephric fat stranding and other inflammatory changes consistent with infection, incidental finding of irregular location of right kidney in right lower quadrant which the patient has never heard before - received a dose of Zosyn in the ED - ceftriaxone 2g every 24hours to avoid nephrotoxic effects of Zosyn - Consider treating for 5-7 days for pyelonephritis 2. acute kidney injury - no history of chronic kidney disease reported but no records available - no risk factors for chronic kidney disease obtained in history - Creatinine of 3.15 at admission - physical exam patient appears mildly hypovolemic with good blood pressure - FENA at admission of 0.6% with urine sodium of 10 consistent with pre-renal/ dehydration - NS 2L given in ED - renal US and doppler show no renal artery stenosis and no urinary obstruction and normal size and shape and kidneys - urine osmolarity 225 and sodium osmolarity 286 consistent with dehydration and hemoconcentration - orthostatic BP measure ordered - NS at 60mL/hr and encourage oral fluid intake 3. hyponatremia and hypochloremia - CMP Sodium 125 at admission - Goal correction rate no more than 8 mEq per 24hr period - approximately increase of serum sodium by 8-9 mEq over the first 24 hours - NS at 60mL/hr and encourage oral fluid intake 4. hypokalemia - potassium of 3.4 at admission - replete as necessary Antoni Quintero DO Nov 04, 2016 14:38
--- NOTE | 2016-11-04 16:40 | PCM.PNMED ---
Subjective Date of Service Nov 04, 2016 Exam Vital Signs Vital Sign - Last Date Time Temp Pulse Resp B/P Pulse Ox O2 Delivery O2 Flow Rate FiO2 11/04/16 13:34 36.3 76 16 139/85 100 Room Air Intake and Output 11/03/16 11/03/16 11/04/16 Cumulative From/Thru 15:00 23:00 07:00 11/03/16 08:45 - 11/04/16 05:36 Intake Total 1000 ml 1673 ml 815 ml 3488 ml Output Total 250 ml 100 ml 350 ml Balance 750 ml 1573 ml 815 ml 3138 ml Intake Oral 500 ml 500 ml IV Total 1000 ml 1173 ml 815 ml 2988 ml Output Urine Total 250 ml 100 ml 350 ml # Bowel Movements 0 0 Lab and Diagnostics o/n admitted, resolving hypoNA , right back pain mildly better, improved mentation, good UOP on RA NAD A and O x 3 CTAB RRR mildly tender left iliac crest, more tender right iliac crest no edema Result Diagram: 11/04/16 0600 11/04/16 1120 X-Rays, CTs and MRIs CT ABDOMEN AND PELVIS WITHOUT CONTRAST ([id number]) IMPRESSION: 1. Right renal enlargement, suggestive of infarct versus edema versus inflammation/infection. 2. No hydronephrosis. 3. Appendix not seen. No evidence of appendicitis. Dictated by: Sony Bourgeois M.D. on 11/03/2016 at 12:15 Approved by: Sony Bourgeois M.D. on 11/03/2016 at 12:18 Cr 3.1 INR 1.07, PTT 33.6 Additional Diagnostics US RENAL SONOGRAM IMPRESSION: 1. Normal appearance of the kidneys bilaterally. 2. Doppler assessment demonstrating normal renal perfusion and patency of the renal veins bilaterally. 3. The appearance of enlargement of the right kidney on a recent CT scan is likely caused by orientation which is mildly rotated. Dictated by: Gabe Rosenthal [facility] Interpreted: Rod Nelson MD on 11/03/2016 at 16:06 Transcribed by: TIMOTHY on 11/03/2016 at 16:13 Approved by: Rod Nelson M.D. on 11/03/2016 at 16:43 US VENOUS LEG DUPLEX BILATERAL IMPRESSION: 1. No evidence of deep venous thrombosis in the right or left lower extremity. Dictated by: Mateo Workman M.D. on 11/04/2016 at 9:11 Approved by: Mateo Workman M.D. on 11/04/2016 at 9:18 Assessment & Plan Active issues and reason for admission Left shift, leukocytosis, abnormal right kidney findings, acute kidney injury, treating as UTI/pyelonephritis, improving --rocephine for now, s/p zosyn in ER --eventually call urology for f/u, no pcp --good uop and energy Hyponatremia and [place], improving --Cr 3 on admission --IVF NS 60cc/hr per nephrology, Thrombocytosis, likely reactive Mild normocytic anemia, monitor --pending TSH, low free T4 elevated lipase, bilirubin, monitor --island chart consistent w/ hx of EtOH use, prior cholecystectomy, no abdominal pain/no vomiting, unlikely pancreatitis --advance diet, tolerating Chronic issues known prior to admission, present on admission EtOH social, and for current pain, no withdrawal hx adverse reactions w/ NSAID-LGI hx and morphine poor historian, TBI hx --ativan/dilaudid Diet clear then regular DVT prophylaxis heparin scd ambulate Code full Disposition Assessment and plan were discussed with patient Resuscitation Status: CPR: Attempt Resuscitation Dona Pineda MD Nov 04, 2016 16:39 IMPRESSION: 1. Right renal enlargement, suggestive of infarct versus edema versus inflammation/infection. 2. No hydronephrosis. 3. Appendix not seen. No evidence of appendicitis. Active issues and reason for admission Left shift, leukocytosis, abnormal right kidney findings, acute kidney injury, treating as UTI/pyelonephritis --rocephine for now, s/p zosyn in ER --eventual call urology for f/u, no pcp Hyponatremia and [place], improving --Cr 3 on admission --IVF NS 60cc/hr per nephrology, Thrombocytosis, likely reactive Mild normocytic anemia, monitor --pending TSH elevated lipase, monitor --island chart consistent w/ hx of EtOH use, prior cholecystectomy, no abdominal pain/no vomiting, unlikely pancreatitis --advance diet Chronic issues known prior to admission, present on admission EtOH social, and for current pain, no withdrawal hx adverse reactions w/ NSAID-LGI hx and morphine poor historian, TBI hx --ativan/dilaudid Diet clear then regular DVT prophylaxis heparin scd ambulate Code full Disposition Assessment and plan were discussed with patient Resuscitation Status: CPR: Attempt Resuscitation Dona Pineda MD Nov 04, 2016 16:39
[2016-11-05] VITALS (9 sets, daily range): BP systolic 124–170; BP diastolic 84–95; PULSE 77–91; RESP 16–18; O2SAT 82–100
[2016-11-05] MEDS: Heparin 5,000 Unit/mL Inj SUBQ SCH ×3 (00:30→16:33)
[2016-11-05] MEDS: HYDROmorphone 0.5 mg/0.5 mL iSecure Syringe IVPUSH PRN ×4 (01:25→20:44)
[2016-11-05] MEDS: 0.9% Sodium Chloride 1,000 ML IV SCH ×2 (04:52→21:39)
[2016-11-05 07:23] LABS: Mean Corpuscular Hemoglobin 30.6 pg (27.0-35.0); Mean Corpuscular Volume 90.8 fL (81-100)
[2016-11-05] MEDS: cefTRIAXone Inj 2,000 MG in Dextrose 5% Minibag Plus 50 ML IV SCH (08:06)
[2016-11-05 08:19] LABS: Phosphorus 3.4 mg/dL (2.5-4.9)
--- NOTE | 2016-11-05 08:19 | NUR ---
vaginal itching pt states that she thinks that she might be developing a yeast infection. This RN put a hat in the toilet to collect a urine sample if needed. paged
--- NOTE | 2016-11-05 09:49 | PCM.PNNEPH ---
Subjective Date of Service Nov 05, 2016 Subjective loose stool noted x 1 yesterday. (+) vaginal itching, no discharge. serum cr normalizing. Exam Vital Signs Vital Sign - Last Date Time Temp Pulse Resp B/P Pulse Ox O2 Delivery O2 Flow Rate FiO2 11/05/16 06:13 36.6 81 16 132/85 98 Room Air 130/85 124/84 Intake and Output 11/04/16 11/04/16 11/05/16 Cumulative From/Thru 15:00 23:00 07:00 11/03/16 08:45 - 11/05/16 06:32 Intake Total 550 ml 1200 ml 2150 ml 7388 ml Output Total 1150 ml 1810 ml 2150 ml 5460 ml Balance -600 ml -610 ml 0 ml 1928 ml Intake Oral 550 ml 1200 ml 1200 ml 3450 ml IV Total 950 ml 3938 ml Output Urine Total 800 ml 1810 ml 2150 ml 5110 ml Emesis 350 ml 350 ml # Bowel Movements 2 2 Exam GA: AAOx3, NAD. Eyes: PERRLA, EOMI, anicteric sclera, noninjected conjunctiva HENT: NC/AT, MMM, no JVD,no LAD. Neck: supple, no lymphadenopathy, trachea midline CV: RRR, no murmurs rubs or gallops Lungs: CTAB, without wheezing rales or rhonchi Abdomen: soft, NT, ND, no HSM. Back: (+) CVA tenderness. Ext: pulses intact bilaterally at radial and dorsalis pedis without edema, cyanosis or clubbing Lab and Diagnostics Result Diagram: 11/05/1645 11/05/1645 X-Rays, CTs and MRIs CT ABDOMEN AND PELVIS WITHOUT CONTRAST ([id number]) IMPRESSION: 1. Right renal enlargement, suggestive of infarct versus edema versus inflammation/infection. 2. No hydronephrosis. 3. Appendix not seen. No evidence of appendicitis. Dictated by: Sony Bourgeois M.D. on 11/03/2016 at 12:15 Approved by: Sony Bourgeois M.D. on 11/03/2016 at 12:18 Cr 3.1 INR 1.07, PTT 33.6 Additional Diagnostics US RENAL SONOGRAM IMPRESSION: 1. Normal appearance of the kidneys bilaterally. 2. Doppler assessment demonstrating normal renal perfusion and patency of the renal veins bilaterally. 3. The appearance of enlargement of the right kidney on a recent CT scan is likely caused by orientation which is mildly rotated. Dictated by: Gabe Rosenthal R[facility] Interpreted: Rod Nelson MD on 11/03/2016 at 16:06 Transcribed by: TIMOTHY on 11/03/2016 at 16:13 Approved by: Rod Nelson M.D. on 11/03/2016 at 16:43 US VENOUS LEG DUPLEX BILATERAL IMPRESSION: 1. No evidence of deep venous thrombosis in the right or left lower extremity. Dictated by: Mateo Workman M.D. on 11/04/2016 at 9:11 Approved by: Mateo Workman M.D. on 11/04/2016 at 9:18 Plan Impression 1. Acute pyelonephritis, U/cx E.coli. 2. acute kidney injury secondary to prerenal and acute pyelonephritis. 3. Hypovolemic hyponatremia,resolved. 4. Vaginal itching, suspected yeast infection. Plan: continue IVF and IV abx. clotrimazole cream Vg at HS. Andres Fabian MD Nov 05, 2016 09:49
--- NOTE | 2016-11-05 10:42 | PCM.PNMED ---
Subjective Date of Service Nov 05, 2016 Exam Vital Signs Vital Sign - Last Date Time Temp Pulse Resp B/P Pulse Ox O2 Delivery O2 Flow Rate FiO2 11/05/16 09:54 36.7 77 18 149/87 99 Room Air Intake and Output 11/04/16 11/04/16 11/05/16 Cumulative From/Thru 15:00 23:00 07:00 11/03/16 08:45 - 11/05/16 06:32 Intake Total 550 ml 1200 ml 2150 ml 7388 ml Output Total 1150 ml 1810 ml 2150 ml 5460 ml Balance -600 ml -610 ml 0 ml 1928 ml Intake Oral 550 ml 1200 ml 1200 ml 3450 ml IV Total 950 ml 3938 ml Output Urine Total 800 ml 1810 ml 2150 ml 5110 ml Emesis 350 ml 350 ml # Bowel Movements 2 2 Lab and Diagnostics Result Diagram: 11/05/16 0645 11/05/16 0645 X-Rays, CTs and MRIs CT ABDOMEN AND PELVIS WITHOUT CONTRAST ([id number]) IMPRESSION: 1. Right renal enlargement, suggestive of infarct versus edema versus inflammation/infection. 2. No hydronephrosis. 3. Appendix not seen. No evidence of appendicitis. Dictated by: Sony Bourgeois M.D. on 11/03/2016 at 12:15 Approved by: Sony Bourgeois M.D. on 11/03/2016 at 12:18 Cr 3.1 INR 1.07, PTT 33.6 Additional Diagnostics US RENAL SONOGRAM IMPRESSION: 1. Normal appearance of the kidneys bilaterally. 2. Doppler assessment demonstrating normal renal perfusion and patency of the renal veins bilaterally. 3. The appearance of enlargement of the right kidney on a recent CT scan is likely caused by orientation which is mildly rotated. Dictated by: Gabe Rosenthal RRA Interpreted: Rod Nelson MD on 11/03/2016 at 16:06 Transcribed by: TIMOTHY on 11/03/2016 at 16:13 Approved by: Rod Nelson M.D. on 11/03/2016 at 16:43 US VENOUS LEG DUPLEX BILATERAL IMPRESSION: 1. No evidence of deep venous thrombosis in the right or left lower extremity. Dictated by: Mateo Workman M.D. on 11/04/2016 at 9:11 Approved by: Mateo Workman M.D. on 11/04/2016 at 9:18 Assessment & Plan o/n right back pain mildly better from admission, ongoing, improved mentation from admision, good UOP no blood no pururlence, resolved diarrhea 2 days ago, neg c diff. vaginal/perianal itch, tolerating diet and ambulating on RA NAD A and O x 3 CTAB RRR mildly tender left iliac crest, more tender right iliac crest no edema Active issues and reason for admission Left shift, leukocytosis, abnormal right kidney findings, acute kidney injury, treating as moffett-sensitive ecoli R UTI/pyelonephritis, improving --rocephine, s/p zosyn in ER --eventually call urology for pyelonephritis evaluation, no pcp --good uop and energy Hyponatremia and DAYTON, resolving --Cr 3 on admission --IVF NS 60cc/hr per nephrology Thrombocytosis, likely reactive, resolving Mild normocytic anemia, monitor --normal TSH, low free T4 elevated lipase, bilirubin, monitor --island chart consistent w/ hx of EtOH use, prior cholecystectomy, no abdominal pain/no vomiting, unlikely pancreatitis --advanced diet, tolerating Chronic issues known prior to admission, present on admission EtOH no withdrawal hx adverse reactions w/ NSAID-LGI hx and morphine poor historian, TBI hx --ativan/dilaudid Diet regular DVT prophylaxis heparin scd ambulate Code full Disposition anticipate home 2 days, after DAYTON resolved w/ PO beta-lactam x 2-3 weeks w/ urologist f/u Assessment and plan were discussed with patient Resuscitation Status: CPR: Attempt Resuscitation Dona Pineda MD Nov 05, 2016 10:13
--- NOTE | 2016-11-05 15:17 | NUR ---
Social Work: Screening Data: Pt is a 66 y/o female admitted for acute renal failure, elevated WBC. Pt's PCP is not listed. Pt's insurance is [facility] [place] [facility]. EMR reviewed. PT ordered, pt declined PT stating no need. No d/c planning needs anticipated at this time. TRACK RIDER will continue to follow if needs arise. Assessment: Pt who is independent at baseline. Plan: Pt will d/c home via POV when medically stable. No d/c planning needs anticipated at this time. TRACK RIDER will continue to follow if needs arise. TALI [place]
--- NOTE | 2016-11-05 18:24 | NUR ---
anxiety pt reports headache and dizzy. BP is elevated. Doc paged. Lorazepam ordered 0.5mg IV
[2016-11-06] MEDS: Heparin 5,000 Unit/mL Inj SUBQ SCH ×4 (00:30→23:54)
[2016-11-06] MEDS: HYDROmorphone 0.5 mg/0.5 mL iSecure Syringe IVPUSH PRN ×4 (04:54→23:53)
[2016-11-06 05:26] VITALS: BP 131/78; PULSE 86; RESP 18; O2SAT 98
[2016-11-06 05:50] VITALS: PULSE 86
[2016-11-06] MEDS: cefTRIAXone Inj 2,000 MG in Dextrose 5% Minibag Plus 50 ML IV SCH (07:47)
[2016-11-06 08:57] VITALS: BP 145/96; PULSE 89; RESP 18; O2SAT 99
--- NOTE | 2016-11-06 10:14 | NUR ---
ok to go for walk ok'ed pt to go for a walk as long as she is accompanied by nurse or BANDER HAND. Tele was DC'ed. pt is eager to get some exercise. This RN let pt know that when there is time we will go on a walk.
--- NOTE | 2016-11-06 11:13 | NUR ---
off floor pt is off floor ambulating with APPLICATION INTEGRATOR. MD diehl'ed for the pt to go out for a walk and fresh air as long as she was accompanied with staff.
[2016-11-06 13:17] VITALS: BP 149/94; PULSE 76; RESP 18; O2SAT 99
[2016-11-06] MEDS: 0.9% Sodium Chloride 1,000 ML IV SCH ×2 (13:51→23:54)
--- NOTE | 2016-11-06 15:04 | PCM.PNMED ---
Subjective Date of Service Nov 06, 2016 Exam Vital Signs Vital Sign - Last Date Time Temp Pulse Resp B/P Pulse Ox O2 Delivery O2 Flow Rate FiO2 11/06/16 13:17 36.7 76 18 149/94 99 Room Air Intake and Output 11/05/16 11/05/16 11/06/16 Cumulative From/Thru 15:00 23:00 07:00 11/03/16 08:45 - 11/06/16 06:17 Intake Total 2800 ml 800 ml 55443 ml Output Total 2300 ml 2550 ml 94123 ml Balance 500 ml -1750 ml 678 ml Intake Oral 2800 ml 800 ml 7050 ml IV Total 3938 ml Output Urine Total 2300 ml 2550 ml 9960 ml Emesis 350 ml # Voids 1 1 # Bowel Movements 2 Lab and Diagnostics Result Diagram: 11/05/16 0645 11/05/16 0645 X-Rays, CTs and MRIs CT ABDOMEN AND PELVIS WITHOUT CONTRAST ([id number]) IMPRESSION: 1. Right renal enlargement, suggestive of infarct versus edema versus inflammation/infection. 2. No hydronephrosis. 3. Appendix not seen. No evidence of appendicitis. Dictated by: Sony Bourgeois M.D. on 11/03/2016 at 12:15 Approved by: Sony Bourgeois M.D. on 11/03/2016 at 12:18 Cr 3.1 INR 1.07, PTT 33.6 Additional Diagnostics US RENAL SONOGRAM IMPRESSION: 1. Normal appearance of the kidneys bilaterally. 2. Doppler assessment demonstrating normal renal perfusion and patency of the renal veins bilaterally. 3. The appearance of enlargement of the right kidney on a recent CT scan is likely caused by orientation which is mildly rotated. Dictated by: Gabe Rosenthal RRA Interpreted: Rod Nelson MD on 11/03/2016 at 16:06 Transcribed by: TIMOTHY on 11/03/2016 at 16:13 Approved by: Rod Nelson M.D. on 11/03/2016 at 16:43 US VENOUS LEG DUPLEX BILATERAL IMPRESSION: 1. No evidence of deep venous thrombosis in the right or left lower extremity. Dictated by: Mateo Workman M.D. on 11/04/2016 at 9:11 Approved by: Mateo Workman M.D. on 11/04/2016 at 9:18 Assessment & Plan 11/05 O/N - right back pain mildly better from admission, ongoing, improved mentation from admision, good UOP no blood no pururlence, resolved diarrhea 2 days ago, neg c diff. vaginal/perianal itch, tolerating diet and ambulating O/N -LIGHTHEADNESS W/ AMBULATION, NAUSEA/HEADACHE/ANXIETY BETTER WITH ATIVAN, ongoing back pain requiring dilaudid EXAM on RA NAD A and O x 3 CTAB RRR mildly tender left iliac crest, more tender right iliac crest no edema Active issues and reason for admission Jasso-sensitive ecoli Right Pyelonephritis w/ Left shift, leukocytosis, associated acute kidney injury improving, ongoing back pain --rocephine, s/p zosyn in ER, trial augmentin tomorrow --eventually urology for pyelonephritis evaluation, no pcp --good uop, lightheaded when walking more today --dialudid, trial tramadol Hyponatremia-resolved and DAYTON, resolving --Cr 3 on admission --IVF NS 60cc/hr per nephrology Thrombocytosis, likely reactive, resolving Mild normocytic anemia, monitor --normal TSH, low free T4 elevated lipase, bilirubin, monitor --island chart consistent w/ hx of EtOH use, prior cholecystectomy, no abdominal pain/no vomiting, unlikely pancreatitis --advanced diet, tolerating Chronic issues known prior to admission, present on admission EtOH no withdrawal hx adverse reactions w/ NSAID-LGI hx and morphine poor historian, TBI hx --ativan/dilaudid Diet regular DVT prophylaxis heparin scd ambulate Code full Disposition anticipate home 1-2 days, after DAYTON resolved w/ PO beta-lactam x 3 weeks w/ urologist f/u Assessment and plan were discussed with patient Resuscitation Status: CPR: Attempt Resuscitation Dona Pineda MD Nov 06, 2016 15:04
--- NOTE | 2016-11-06 17:22 | NUR ---
Peggy pt states that the Ultram was not effective and gave her no relief from the pain.
[2016-11-06] MEDS: Amoxicillin-Clav 875-125 mg Tablet PO SCH (20:25)
[2016-11-06 21:06] VITALS: BP 140/91; PULSE 87; RESP 18; O2SAT 99
[2016-11-07 05:18] VITALS: BP 143/91; PULSE 97; RESP 18; O2SAT 99
[2016-11-07] MEDS: HYDROmorphone 0.5 mg/0.5 mL iSecure Syringe IVPUSH PRN ×3 (05:56→20:34)
--- NOTE | 2016-11-07 06:19 | NUR ---
Pain Pt c/o bilateral flank pain 8/10, tenderness at bilateral costal-spinal angles, Dilaudid 0.5mg IV q6h prn givenx2,Tramadol tried,not effective. Warm packs applied on the back. Pain improved and tolerable,pt sleeping soundly at night. RN offer pt to contact MD to increase Dilaudid frequency for better pain control, pt declines it. Pt denies urinary urgency or discomfort, void yellow urine, sufficient amount output. Oral fluid encouraged. Low fever this am 37.7, will recheck.
[2016-11-07 06:43] LABS: Mean Corpuscular Hemoglobin 30.3 pg (27.0-35.0); Mean Corpuscular Volume 91.3 fL (81-100); Platelet Count 728 bil/L (150-400)
[2016-11-07 07:17] LABS: BASOPHILS % (AUTO) 0 % (0-3); EOSINOPHILS % (AUTO) 0 % (0-5); MONOCYTES % (AUTO) 6 % (4-12); NEUTROPHILS % (AUTO) 73 % (40-74)
[2016-11-07] MEDS: Heparin 5,000 Unit/mL Inj SUBQ SCH ×2 (08:14→16:30)
[2016-11-07] MEDS: Amoxicillin-Clav 875-125 mg Tablet PO SCH (08:15)
--- NOTE | 2016-11-07 09:00 | NUR ---
vomit pt is vomiting but does not want any medications to help. emesis bags given. pt states that she thinks that it may have been the antibiotic that upset her stomach
[2016-11-07] MEDS ORDERED: cefTRIAXone Inj 1,000 MG in Dextrose 5% Minibag Plus 50 ML IV SCH (10:15)
--- NOTE | 2016-11-07 14:06 | PCM.PNNEPH ---
Subjective Date of Service Nov 07, 2016 Subjective The patient states that she is feeling better however today she had one bout of severe nausea and vomiting approximately 10 minutes after taking her oral Augmentin for her UTI. The patient does not recall ever having an incidence with the Augmentin in the past however she is unaware when the last time she ever received this antibiotic. The patient denies any fever or chills or ongoing nausea and vomiting at this time. The patient has had one bout of loose stools which was described as a small volume Exam Vital Signs Vital Sign - Last Date Time Temp Pulse Resp B/P Pulse Ox O2 Delivery O2 Flow Rate FiO2 11/07/16 05:18 37.7 97 18 143/91 99 Room Air Intake and Output 11/06/16 11/06/16 11/07/16 Cumulative From/Thru 15:00 23:00 07:00 11/03/16 08:45 - 11/07/16 06:43 Intake Total 1426 ml 1466 ml 37633 ml Output Total 1650 ml 2125 ml 10897 ml Balance -224 ml -659 ml -205 ml Intake Oral 1320 ml 800 ml 9170 ml IV Total 106 ml 666 ml 4710 ml Output Urine Total 1650 ml 2125 ml 29624 ml Emesis 350 ml # Voids 1 # Bowel Movements 2 Exam general: thin female appearing approximately the stated age alert and oriented in no acute distress in ED Eyes: PERRLA, EOMI, anicteric sclera, noninjected conjunctiva HENT: NC/AT, MMM without central cyanosis, no cobblestoning mucosa Neck: supple, no lymphadenopathy, trachea midline CV: RRR, no murmurs rubs or gallops Lungs: CTAB, without wheezing rales or rhonchi Abdomen: diagonal surgical scar consistent with prior cholecystectomy, hyperactive bowel sounds, nontender without organomegaly or masses Back: no pain on palpation of the spine, improved Yvan sign Ext: pulses intact bilaterally at radial and dorsalis pedis without edema, cyanosis or clubbing Skin: Warm and dry : no greene in place Neuro: no focal neurologic deficit, mild delayed speech and very mild slurring or words Psych: normal mood and affect Lab and Diagnostics Result Diagram: 11/07/16 0635 11/07/16 0635 X-Rays, CTs and MRIs CT ABDOMEN AND PELVIS WITHOUT CONTRAST ([id number]) IMPRESSION: 1. Right renal enlargement, suggestive of infarct versus edema versus inflammation/infection. 2. No hydronephrosis. 3. Appendix not seen. No evidence of appendicitis. Dictated by: Sony Bourgeois M.D. on 11/03/2016 at 12:15 Approved by: Sony Bourgeois M.D. on 11/03/2016 at 12:18 Cr 3.1 INR 1.07, PTT 33.6 Additional Diagnostics US RENAL SONOGRAM IMPRESSION: 1. Normal appearance of the kidneys bilaterally. 2. Doppler assessment demonstrating normal renal perfusion and patency of the renal veins bilaterally. 3. The appearance of enlargement of the right kidney on a recent CT scan is likely caused by orientation which is mildly rotated. Dictated by: Gabe Rosenthal RRA Interpreted: Rod Nelson MD on 11/03/2016 at 16:06 Transcribed by: TIMOTHY on 11/03/2016 at 16:13 Approved by: Rod Nelson M.D. on 11/03/2016 at 16:43 US VENOUS LEG DUPLEX BILATERAL IMPRESSION: 1. No evidence of deep venous thrombosis in the right or left lower extremity. Dictated by: Mateo Workman M.D. on 11/04/2016 at 9:11 Approved by: Mateo Workman M.D. on 11/04/2016 at 9:18 Plan Impression Patient is a previously healthy 66yof with no significant notable past medical history states that ten days ago she began to notice back pain, which has progressively become worse. 1. pyelonephritis 2. acute kidney injury 3. hyponatremia and hypochloremia 4. hypokalemia Plan: 1. pyelonephritis - SIRS criteria not met and normal lactic acid 0.7 at admission - patient has positive Yvan's sign on physical exam at admission - UA shows WBC and bacteria - CBC with 19.1k WBC consistent with infection and 525k PLTs likely stress phase reactant - CT shows perinephric fat stranding and other inflammatory changes consistent with infection, incidental finding of irregular location of right kidney in right lower quadrant which the patient has never heard before - received a dose of Zosyn in the ED - ceftriaxone 2g every 24hours to avoid nephrotoxic effects of Zosyn - Patient received a dose of Augmentin today with notable GI upset this been converted to Keflex given pansensitivity of the Escherichia coli. To be continued for a total antibiotic duration of at least 7 days. 2. acute kidney injury - no history of chronic kidney disease reported but no records available - no risk factors for chronic kidney disease obtained in history - Creatinine of 3.15 at admission - physical exam patient appeared mildly hypovolemic with good blood pressure - FENA at admission of 0.6% with urine sodium of 10 consistent with pre-renal/ dehydration - renal US and doppler show no renal artery stenosis and no urinary obstruction and normal size and shape and kidneys - urine osmolarity 225 and sodium osmolarity 286 consistent with dehydration and hemoconcentration - Significant improvement in creatinine down to 1.08 today - encourage oral fluid intake 3. hyponatremia and hypochloremia - CMP Sodium 125 at admission - Goal correction rate no more than 8 mEq per 24hr period, approximately increase of serum sodium by 8-9 mEq over the first 24 hours - Has remained low or low-normal - Encourage salt intake 4. hypokalemia - potassium of 3.4 at admission - Resolved Antoni Quintero DO Nov 07, 2016 14:06
[2016-11-07 14:21] VITALS: BP 143/84; PULSE 86; RESP 18; O2SAT 100
--- NOTE | 2016-11-07 14:57 | NUR ---
CHRISTEN - Readiness for Discharge Data: Pt is on day 4 of hospitalization for acute renal failure, elevated WBC. Per morning rounds pt is possible to discharge later today and is up and independent in room. Pt declines PT services. SW met with pt at bedside to check in re: no PCP listed and offer appointment at residency clinic. Pt stated she would like us to make this appt. SW requested UR Specialist contact residency clinic to make appt for pt. No further d/c planning needs anticipated at this time. BALING MACHINE TENDER will continue to follow. Assessment: Pt who is independent at baseline. Plan: Pt will d/c home via POV when medically stable. UR specialist to follow up with appt time at residency clinic. BALING MACHINE TENDER will continue to follow if needs arise. TALI [place]
--- NOTE | 2016-11-07 15:06 | PCM.PNMED ---
Subjective Date of Service Nov 07, 2016 Subjective Patient was started on Augmentin this morning. She had GI upset and vomited. Switched to Keflex. Low-grade fever this morning at 37.7. Exam Vital Signs Vital Sign - Last Date Time Temp Pulse Resp B/P Pulse Ox O2 Delivery O2 Flow Rate FiO2 11/07/16 14:21 36.8 86 18 143/84 100 Room Air Intake and Output 11/06/16 11/06/16 11/07/16 Cumulative From/Thru 15:00 23:00 07:00 11/03/16 08:45 - 11/07/16 06:43 Intake Total 1426 ml 1466 ml 53968 ml Output Total 1650 ml 2125 ml 31869 ml Balance -224 ml -659 ml -205 ml Intake Oral 1320 ml 800 ml 9170 ml IV Total 106 ml 666 ml 4710 ml Output Urine Total 1650 ml 2125 ml 22840 ml Emesis 350 ml # Voids 1 # Bowel Movements 2 Exam general: thin female appearing approximately the stated age alert and oriented in no acute distress in ED Eyes: PERRLA, EOMI, anicteric sclera, noninjected conjunctiva HENT: NC/AT, MMM without central cyanosis, no cobblestoning mucosa Neck: supple, no lymphadenopathy, trachea midline CV: RRR, no murmurs rubs or gallops Lungs: CTAB, without wheezing rales or rhonchi Abdomen: diagonal surgical scar consistent with prior cholecystectomy, hyperactive bowel sounds, nontender without organomegaly or masses Back: no pain on palpation of the spine, improved Yvan sign Ext: pulses intact bilaterally at radial and dorsalis pedis without edema, cyanosis or clubbing Skin: Warm and dry : no greene in place Neuro: no focal neurologic deficit, mild delayed speech and very mild slurring or words Psych: normal mood and affect IVs and Medications Medications Reviewed: Medications were reviewed in detail Lab and Diagnostics Result Diagram: 11/07/16 0635 11/07/16 0635 X-Rays, CTs and MRIs CT ABDOMEN AND PELVIS WITHOUT CONTRAST ([id number]) IMPRESSION: 1. Right renal enlargement, suggestive of infarct versus edema versus inflammation/infection. 2. No hydronephrosis. 3. Appendix not seen. No evidence of appendicitis. Dictated by: Sony Bourgeois M.D. on 11/03/2016 at 12:15 Approved by: Sony Bourgeois M.D. on 11/03/2016 at 12:18 Cr 3.1 INR 1.07, PTT 33.6 Additional Diagnostics US RENAL SONOGRAM IMPRESSION: 1. Normal appearance of the kidneys bilaterally. 2. Doppler assessment demonstrating normal renal perfusion and patency of the renal veins bilaterally. 3. The appearance of enlargement of the right kidney on a recent CT scan is likely caused by orientation which is mildly rotated. Dictated by: Gabe Rosenthal RRA Interpreted: Rod Nelson MD on 11/03/2016 at 16:06 Transcribed by: TIMOTHY on 11/03/2016 at 16:13 Approved by: Rod Nelson M.D. on 11/03/2016 at 16:43 US VENOUS LEG DUPLEX BILATERAL IMPRESSION: 1. No evidence of deep venous thrombosis in the right or left lower extremity. Dictated by: Mateo Workman M.D. on 11/04/2016 at 9:11 Approved by: Mateo Workman M.D. on 11/04/2016 at 9:18 Assessment & Plan # Jasso-sensitive e coli Right Pyelonephritis w/ Left shift, leukocytosis, associated acute kidney injury improving, ongoing back pain --Rocephin, s/p Zosyn in ER, started Augmentin today but did not tolerate , started keflex --eventually urology for pyelonephritis evaluation --good uop, --dialudid, trial tramadol # Hyponatremia-resolved and DAYTON, resolving --Cr 3 on admission --IVF NS 60cc/hr per nephrology # DAYTON ,improved -initial Cr 3.15,cr 1.08 # Thrombocytosis, likely reactive, resolving # Mild normocytic anemia, monitor --normal TSH, low free T4 # elevated lipase, bilirubin, monitor --island chart consistent w/ hx of EtOH use, prior cholecystectomy, no abdominal pain/no vomiting, unlikely pancreatitis --advanced diet, tolerating # reactive thrombocytosis -plt 728 Code full Disposition anticipate home tomorrow on PO keflex x 2 weeks if tolerates ,she also had low grade temp today,will observe overnight VTE Mechanical Devices: Venous Foot Pump Resuscitation Status: CPR: Attempt Resuscitation Cedrick Wills MD Nov 07, 2016 15:06
[2016-11-07 20:59] VITALS: BP 125/84; PULSE 91; RESP 18; O2SAT 96
[2016-11-07] MEDS: 0.9% Sodium Chloride 1,000 ML IV SCH (21:04)
[2016-11-08] MEDS: Heparin 5,000 Unit/mL Inj SUBQ SCH ×2 (00:02→08:55)
--- NOTE | 2016-11-08 02:19 | NUR ---
Pain/Urine Pt c/o bilateral flank pain 8-8.5/10, Dilaudid q6hr prn administered, warm pack apple. Pain improved and tolerable, pt sleeping comfortably most of night. Tenderness on bilateral flanks "much better" per pt, mostly at right flank. Pt void sufficient amount of yellow cloudy urine, denies dyspnea or urinary urgency. Pt denies n/v, tolerate Keflex with apple sauce. VSS afebrile. Oral fluid and salty food (low Na) encouraged. NS running.
[2016-11-08] MEDS: HYDROmorphone 0.5 mg/0.5 mL iSecure Syringe IVPUSH PRN ×2 (02:36→08:53)
[2016-11-08 05:07] VITALS: BP 126/81; PULSE 81; RESP 18; O2SAT 97
[2016-11-08 09:27] LABS: Mean Corpuscular Hemoglobin 30.7 pg (27.0-35.0); Mean Corpuscular Volume 92.6 fL (81-100); Platelet Count 742 bil/L (150-400)
[2016-11-08 10:18] LABS: BASOPHILS % (AUTO) 1 % (0-3); EOSINOPHILS % (AUTO) 1 % (0-5); MONOCYTES % (AUTO) 4 % (4-12); NEUTROPHILS % (AUTO) 83 % (40-74)
--- NOTE | 2016-11-08 10:29 | PCM.DIMED ---
Discharge Instructions Date of Service Nov 08, 2016 Dates of Hospitalization Nov 03, 2016 at 13:39 Discharge Diagnosis Discharge Diagnosis # Jasso-sensitive e coli Right Pyelonephritis , improving, # Hyponatremia-resolved # DAYTON ,resolved # Thrombocytosis, likely reactive, resolving # Mild normocytic anemia, monitor Diet Low fat, Low Sodium Activity Limited until seen by PCP Call your provider Fever or Chills, Shortness of breath, Bleeding, Chest pain, Vomitting, Excessive diarrhea, Weakness (unilateral) Patient Instructions You were hospitalized due to right pyelonephritis and acute kidney injury. you have been treated with IV antibiotics and IV fluids. Acute kidney injury resolved. Please continue Keflex for 5 more days as prescribed. Follow-up plan Please follow-up with his new PCP at [facility] residency clinic Follow-up Provider: [facility] Follow-up with PCP in: 1 week Cedrick Wills MD Nov 08, 2016 10:29
[2016-11-08] MEDS ORDERED: CEPH500C PO (10:30)
[2016-11-08] MEDS ORDERED: TRAM-14 PO (10:30)
--- NOTE | 2016-11-08 11:28 | NUR ---
Discharge VSS. Discharge education completed, pt denies questions. Continues to report R flank pain, d/c Rx given for Tramadol. Son to take pt home. Addendum: 11/08/16 at 1224 by CANDIDA SERRATO RN Pt d/c'd at aprox 1215 via w/c to private vehicle, accompanied by MANAGER RELOCATION. IV d/c'd in tact.
--- NOTE | 2016-11-08 13:50 | PCM.DC.MED ---
Discharge Summary Date of Service Nov 08, 2016 Dates of Hospitalization Date of Hospital Admission Nov 03, 2016 at 13:39 Date of Discharge: Nov 08, 2016 Providers: Admitting Physician: Dona Pineda MD Primary Care Physician: Nopalicia Attending Physician: Dona Pineda MD Diagnosis at Time of Discharge Diagnosis at Time of Discharge # Jasso-sensitive e coli Right Pyelonephritis , improving, # Hyponatremia-resolved # [place] ,resolved # Thrombocytosis, likely reactive, resolving # Mild normocytic anemia, monitor Consultations Nephrology Procedures XRay, CTs & MRIs CT ABDOMEN AND PELVIS WITHOUT CONTRAST ([id number]) IMPRESSION: 1. Right renal enlargement, suggestive of infarct versus edema versus inflammation/infection. 2. No hydronephrosis. 3. Appendix not seen. No evidence of appendicitis. Dictated by: Sony Bourgeois M.D. on 11/03/2016 at 12:15 Approved by: Sony Bourgeois M.D. on 11/03/2016 at 12:18 Cr 3.1 INR 1.07, PTT 33.6 Other Diagnostics US RENAL SONOGRAM IMPRESSION: 1. Normal appearance of the kidneys bilaterally. 2. Doppler assessment demonstrating normal renal perfusion and patency of the renal veins bilaterally. 3. The appearance of enlargement of the right kidney on a recent CT scan is likely caused by orientation which is mildly rotated. Dictated by: Gabe Rosnethal RR Interpreted: Rod Nelson MD on 11/03/2016 at 16:06 Transcribed by: TIMOTHY on 11/03/2016 at 16:13 Approved by: Rod Nelson M.D. on 11/03/2016 at 16:43 US VENOUS LEG DUPLEX BILATERAL IMPRESSION: 1. No evidence of deep venous thrombosis in the right or left lower extremity. Dictated by: Mateo Workman M.D. on 11/04/2016 at 9:11 Approved by: Mateo Workmna M.D. on 11/04/2016 at 9:18 Brief History per HPI Patient is a previously healthy 66yof with no significant notable past medical history. She is currently on no medication and denies any chronic illness. The patient states that ten days ago she began to notice back pain, which has progressively become worse. The pain does not appear to be position dependent and while it gets slightly better on occasion the trend is worse. The patient denies any injury. She states that she has developed chills the last several days but she denies any difficulty with urination, and urinary urgency or frequency. She denies chronic urinary track infections in the past. She has never been told she had blood or protein in her urine. She denies past medical history including diabetes, hypertension, gout, hepatitis, lupus, kidney stones. She has been drinking plenty of fluids including reportedly 5-6 16 ounce Smart barth yesterday. She patient denies taking ibuprofen or naproxen for the pain, she states that she has been drinking half a beer a day for the pain. Hospital Course # Jasso-sensitive e coli Right Pyelonephritis w/ Left shift, leukocytosis, associated acute kidney injury improving, ongoing back pain --Rocephin, s/p Zosyn in ER, started Augmentin 11/07 but did not tolerate , started keflex and tolerated well. Discharged on Keflex for 5 more days. # Hyponatremia-resolved # [place] ,improved -Due to pyelonephritis -initial Cr 3.15,cr 1.08 # Mild normocytic anemia, monitor outpatient --normal TSH, low free T4 # elevated lipase, bilirubin, monitor --island chart consistent w/ hx of EtOH use, prior cholecystectomy, no abdominal pain/no vomiting, unlikely pancreatitis --advanced diet, tolerating # reactive thrombocytosis -plt 728 Code full Discharged home Condition on discharge stable Exam Vital Signs (Last) Date Time Temp Pulse Resp B/P Pulse Ox O2 Delivery O2 Flow Rate FiO2 11/08/16 05:07 36.6 81 18 126/81 97 Room Air Exam general: thin female appearing approximately the stated age alert and oriented in no acute distress in ED Eyes: PERRLA, EOMI, anicteric sclera, noninjected conjunctiva HENT: NC/AT, MMM without central cyanosis, no cobblestoning mucosa Neck: supple, no lymphadenopathy, trachea midline CV: RRR, no murmurs rubs or gallops Lungs: CTAB, without wheezing rales or rhonchi Abdomen: diagonal surgical scar consistent with prior cholecystectomy, hyperactive bowel sounds, nontender without organomegaly or masses Back: no pain on palpation of the spine, improved Yvan sign Ext: pulses intact bilaterally at radial and dorsalis pedis without edema, cyanosis or clubbing Skin: Warm and dry : no greene in place Neuro: no focal neurologic deficit, mild delayed speech and very mild slurring or words Psych: normal mood and affect Test 11/03/16 09:30 11/03/16 09:32 11/03/16 09:50 11/03/16 15:07 Urine Random Creatinine 42mg/dL (15-278) Urine Random Sodium 10mEq/L Urine Color Yellow (YELLOW) Urine Appearance Clear (CLEAR,HAZY) Urine pH 6.0 (5.0-8.0) Urine Specific [place] 1.005 (1.003-1.035) Urine Protein Tracemg/dL (NEG,TRACE) Urine Glucose (UA) Negativemg/dL (NEGATIVE) Urine Ketones Negativemg/dL (NEGATIVE) Urine Occult Blood Trace (NEGATIVE) Urine Nitrite Negative (NEGATIVE) Urine Bilirubin Negative (NEGATIVE) Urine Urobilinogen Normalmg/dL (NORMAL) Urine Leukocyte Esterase Large (NEGATIVE) Urine RBC 0-2/hpf (0-2) Urine WBC 11-50/hpf (0-5) Urine Epithelial Cells Occasional/hpf (NONE-MOD) Urine Crystals None seen (NONE SEEN) Urine Bacteria Moderate/hpf (NONE-FEW) Urine Hyaline Casts None/lpf (NONE) Urine Granular Casts None seen (NONE SEEN) Urine Waxy Casts None seen (NONE SEEN) Urine Red Blood Cell Casts None seen (NONE SEEN) Urine White Blood Cell Casts None seen (NONE SEEN) Urine Mucus None seen (None Seen) Urine Trichomonas None seen (NONE SEEN) Urine Yeast None (NONE SEEN) Urinalysis Comment None Urine Culture Reflexed Indicated Prothrombin Time 11.5sec (8.1-12.5) Prothromb Time International Ratio 1.07ratio Activated Partial Thromboplast Time 33.6sec (22.8-33.0) Urine Osmolality 225mOs/kH2O (250-1200) Osmolality 286 (275-300) Lactic Acid Level 0.7mmol/L (0.4-2.0) Magnesium Level 2.5mg/dL (1.6-2.6) Lipase 194U/L (13-60) Procalcitonin 2.88ng/mL (0.00-0.08) Free Thyroxine Index 1.1 (1.2-4.9) Thyroxine (T4) 3.7ug/dL (4.5-12.0) Triiodothyronine (T3) Uptake 29% (24-39) D-Dimer 2.17mg/L FEU (<0.50) Test 11/05/16 06:45 11/07/16 06:35 11/08/16 09:20 Phosphorus Level 3.4mg/dL (2.5-4.9) Thyroid Stimulating Hormone (TSH) 2.680uIU/mL (0.450-4.500) Myelocytes % 3% (0-0) White Blood Count 12.1th/mm3 (3.8-10.1) Red Blood Count 2.96mil/mm3 (3.90-5.20) Hemoglobin 9.1g/dL (12.0-15.6) Hematocrit 27.4% (35.0-46.0) Mean Corpuscular Volume 92.6fL (81-100) Mean Corpuscular Hemoglobin 30.7pg (27.0-35.0) Mean Corpuscular Hemoglobin Concent 33.2% (32.0-37.0) Red Cell Distribution Width 14.5% (12.3-15.4) Platelet Count 742bil/L (150-400) Neutrophils (%) (Auto) 83% (40-74) Lymphocytes (%) (Auto) 5% (14-46) Monocytes (%) (Auto) 4% (4-12) Eosinophils (%) (Auto) 1% (0-5) Basophils (%) (Auto) 1% (0-3) Band Neutrophils % 2% (1-5) Metamyelocytes % 4% (0-0) Sodium Level 135mEq/L (134-144) Potassium Level 4.0mEq/L (3.5-5.2) Chloride Level 102mEq/L (97-108) Carbon Dioxide Level 18mmol/L (18-29) Blood Urea Nitrogen 10mg/dL (8-27) Creatinine 0.94mg/dL (0.57-1.00) Estimat Glomerular Filtration Rate 86mL/min (>59) Glucose Level 120mg/dL (60-99) Calcium Level 8.2mg/dL (8.5-10.1) Total Bilirubin 0.5mg/dL (0.0-1.2) Aspartate Amino Transf (AST/SGOT) 27U/L (0-50) Alanine Aminotransferase (ALT/SGPT) 20U/L (0-32) Alkaline Phosphatase 115U/L (25-165) Total Protein 5.3g/dL (6.4-8.4) Albumin 2.5g/dL (3.4-5.0) Discharge Medications Discharge Medications Calcium Carbonate/Vitamin D3 (Calcium + Vitamin D Tablet) 1 Each Tablet 1 EACH PO DAILY (Reported) Cephalexin (Cephalexin) 500 Mg Capsule 500 MG PO TID Prescribed by: CEDRICK WILLS MD Multivits-Min/FA/Lycopene/Lut (Centrum Silver Tablet) 1 Each Tablet 1 EACH PO DAILY (Reported) As needed Tramadol (Ultram) 50 Mg Tablet 50 MG PO Q4H PRN PRN For Mild Pain Prescribed by: CEDRICK WILLS MD Followup Plan Disposition: Home Follow-up plan Please follow-up with his new PCP at [facility] residency clinic Discharge Diet: Low fat, Low Sodium Discharge Activity: Limited until seen by PCP Patient Instructions You were hospitalized due to right pyelonephritis and acute kidney injury. you have been treated with IV antibiotics and IV fluids. Acute kidney injury resolved. Please continue Keflex for 5 more days as prescribed. Follow-up Provider: [facility] Residency Clinic Follow-up with PCP in: 1 week Time spent 35 minutes copies to: [facility] Residency Clinic Cedrick Wills MD Nov 08, 2016 13:50
--- NOTE | 2016-11-08 16:14 | NUR ---
SW - Discharge Data: Pt is on day 5 of hospitalization for acute renal failure, elevated WBC. Per morning rounds pt will discharge today and is up and independent in room. Pt declines PT services. Pt to discharge home via family in POV. No further d/c planning needs anticipated at this time. Assessment: Pt who is independent at baseline. Plan: Pt will d/c home via POV. No further needs assessed. TALI Murphy
== END 2016-11-08 12:13 | disposition home or self-care (01) | DRG 683 ==
LOC: SED 08:34 → MPC 13:39
PROVIDERS: ADMIT Urology; ATTEND Urology
DX: N17.9 Acute kidney failure, unspecified (principal); E87.1 Hypo-osmolality and hyponatremia; N10 Acute pyelonephritis; E87.6 Hypokalemia; E86.0 Dehydration; D47.3 Essential (hemorrhagic) thrombocythemia; E87.8 Other disorders of electrolyte and fluid balance, not elsewhere classified

== ENCOUNTER 2016-11-11 15:29 | Inpatient (IN) | payer OTHER ==
[~2016-11-11] VITALS: Ht 165.1 cm; Wt 56.8 kg
[~2016-11-11 15:29] MED LIST: CALC-140 PO; CEPH500C PO; MULT-1073 PO; TRAM-14 PO
[2016-11-11 15:34] VITALS: BP 145/92; PULSE 84; RESP 14; O2SAT 98
[2016-11-11] MEDS ORDERED: Ondansetron 2 mg/mL 2 mL Inj IVPUSH PRN (15:55)
[2016-11-11] MEDS ORDERED: Alum-Mag Hydrox-Simeth 30 mL Suspension PO PRN (15:55)
[2016-11-11] MEDS ORDERED: Polyethylene Glycol (PEG) 17 Gm Powder PO PRN (15:55)
--- NOTE | 2016-11-11 15:58 | NUR ---
Admit Patient report called from urgent care. Patient was direct admit and was able to independently transfer into bed. Patient had no noticeable skin issues besides dryness on lower extremities bilaterally. Patient complained of pain of 7/10 abdominal and back pain. patient oriented to room, staff, call light, television and visiting hours. patient wristband placed on left wrist with allergy sticker.
[2016-11-11] MEDS: 0.9% Sodium Chloride 1,000 ML IV SCH (16:07)
[2016-11-11 16:10] VITALS: PULSE 83
[2016-11-11] MEDS: HYDROmorphone 0.5 mg/0.5 mL iSecure Syringe IVPUSH PRN ×2 (16:36→20:30)
--- NOTE | 2016-11-11 16:46 | PCM.HPMED ---
Subjective Date of Service Nov 11, 2016 Primary Provider: Admitting Physician: Cedrick Wills MD Primary Care Physician: Breana Attending Physician: Cedrick Wills MD Admit Status: Direct Admit, Full Admit, Admit to Blue Team Chief Complaint: Watery dark diarrhea/2 days Worsening right flank pain/2 days History of Present Illness: Patient is a 66-year-old lady was no significant past medical history was recently hospitalized from 11/03- 11/08 after she presented with back and flank pain. She was treated for pansensitive Escherichia coli pyelonephritis with ceftriaxone based on urine culture and CT finding. She was discharged on Keflex for 4 more days to complete 10 day treatment. She also was treated for [place] with IV fluids. Initial creatinine 3.15 which improved to 0.9 up on discharge. She states one day post discharge she started to have sudden onset watery black diarrhea which continued for the last 2 days. She had 10 episodes yesterday during the day and 6 episodes overnight. Did not have any episodes today.she also complains of moderate diffuse bilateral lower abdominal pain. Denies vomiting. Denies fever. She also continues to have right flank pain. She went to urgent care clinic this morning and sent for direct admit. Lab sent at urgent care WBC 11.2, hemoglobin 9.7, platelets 848, creatinine 0.88 , potassium 3.0, lipase 190, urinalysis 1+ leukocyte esterase, 0-5 wbc's Review of Systems: Comprehensive review of systems performed, pertinent positives and negatives included in history of present illness Allergies Coded Allergies: clindamycin (Verified Allergy, Unknown, 11/11/16) prednisone (Verified Allergy, Unknown, 11/11/16) cephalexin (Verified Adverse Reaction, Severe, jaw stiffness, body aches, nausea, dizziness, 11/11/16) took together with tramadol-unsure wich one of these two has caused a reaction tramadol (Verified Adverse Reaction, Severe, jaw stiffness, body aches, nausea, dizziness, 11/11/16) took together with cephalexin-unsure which one of these two medications caused a reaction acetaminophen (Verified Adverse Reaction, Intermediate, Nausea, "it does nothing", 11/11/16) aspirin (Verified Adverse Reaction, Intermediate, 11/11/16) ibuprofen (Verified Adverse Reaction, Intermediate, Nausea, "It doesn't work", 11/11/16) permethrin (Verified Adverse Reaction, Intermediate, Nausea, 11/11/16) codeine (Verified Adverse Reaction, Unknown, Nausea,Vomiting, flushed, ) morphine (Verified Adverse Reaction, Unknown, "It didn't work at all", ) Home Medications From recent discharge summary Calcium Carbonate/Vitamin D3 (Calcium + Vitamin D Tablet) 1 Each Tablet 1 EACH PO DAILY (Reported) Cephalexin (Cephalexin) 500 Mg Capsule 500 MG PO TID Prescribed by: CEDRICK WILLS MD Multivits-Min/FA/Lycopene/Lut (Centrum Silver Tablet) 1 Each Tablet 1 EACH PO DAILY (Reported) As needed Tramadol (Ultram) 50 Mg Tablet 50 MG PO Q4H PRN PRN For Mild Pain Prescribed by: CEDRICK WILLS MD PMH per recent HPI Cholecystectomy breast cancer, hxof tamoxifen finished course TBI x 3 anxiety arthritis vision impairment Surgical History Cholecystectomy many years ago Family History Reviewed and unremarkable Social History Hx Alcohol Use: Yes Hx Substance Use: No Hx Tobacco Use: No Smoking Status: Never Smoker Exam Vital Signs Vital Sign - Last Date Time Temp Pulse Resp B/P Pulse Ox O2 Delivery O2 Flow Rate FiO2 11/11/16 16:10 83 11/11/16 15:34 36.8 14 145/92 98 Room Air Exam Gen. patient is lying comfortably in hospital bed HEENT: Head is normocephalic atraumatic, Pupils equal and reactive, extraocular movements intact, Lungs clear to auscultation bilaterally Heart regular rate and rhythm without murmurs gallops or rubs Abdomen mild LLQ abdominal tenderness, Extremities pulses are present dorsalis pedis posterior tibialis and radial. tSkin is warm and dry there are no rashes, Psych alert and oriented to person place and time Neuro cranial nerves II through XII are grossly intact Lymph: There is no lymphadenopathy appreciated in the cervical supra infraclavicular regions : no greene Lab and Diagnostics Microbiology Specimen: [id number] Collected: 11/03/16 Status: COMP Req#: [id number] Received: 11/03/16 Source: URINE CC Sp Desc : PP Subm Dr: Lin Muñoz MD Ordered: URINE CULT Procedure Result Verified Site Microbiology LUIS ALBERTO CULT URINE Final 11/05/16-30 Organism 1 ESCHERICHIA COLI U COLONY COUNT/QUANTITY >100,000 CFU/ml Cefazolin-predicts results for the oral agents, cefaclor,cefdinir, cefpodoximen, cefprozil, cefuroximne axetil, cephalexin and loracarbed when used for therapy of uncomplicated UTI's due to E. coli, K. pneumoniae, and Proteus mirabilis. Cefpodoxime, cefdinir and cefuroxime axetil may be tested individually because some isolates may be susceptible to these agents while testing resistant to cefazolin. (CLSI [id number] pg 53) 1. ESCHERICHIA COLI M.I.C Interp --------- ------ * AMOXICILLIN/CLAVULATE <=2 S * AMPICILLIN <=2 S * CEFAZOLIN (CEPHALOSPORIN) UTI 4 S * CEFEPIME <=1 S * CEFTRIAXONE <=1 S * CEFUROXIME SODIUM 4 S * CIPROFLOXACIN <=0.25 S * ERTAPENEM <=0.5 S * GENTAMICIN <=1 S * IMIPENEM <=1 S * LEVOFLOXACIN <=0.12 S * NITROFURANTOIN <=16 S * TETRACYCLINE <=1 S * TOBRAMYCIN <=1 S * TRIMETHOPRIM/SULFAMETHOXAZOLE <=20 S Assessment & Plan 66-year-old lady was no significant past medical history was recently treated for pyelonephritis came with watery diarrhea #Acute diarrhea due to suspected C. difficile colitis -NS at 100ml/h -Stool for C. difficile requested -Empirically started on Flagyl -Discontinued Keflex # Recently treated for pyelonephritis -Patient continues to have left flank pain and CVA tenderness -Urinalyses unremarkable -We will hold off on antibiotics -We will consider repeating CT scan if continues to have pain # Recent [place], -Kidney function stable now # Hypokalemia, repleted #Persistent Elevated lipase -Possible chronic pancreatitis Due to alcohol # Thrombocytosis -Likely reactive from infection -Will need follow-up of the patient to make sure resolves Patient admitted under inpatient status with expected length of stay > 2 midnights for severity of present symptoms, complexities of treatment plan and risk for adverse events Full code per patient copies to: [facility] Residency Clinic Cedrick Wills MD Nov 11, 2016 16:46
[2016-11-11] MEDS ORDERED: Potassium Chloride 20 mEq SR Tablet PO ONE (17:00)
[2016-11-11] MEDS: metroNIDAZOLE Inj 500 MG in IV Premix 1 EACH IV SCH (17:05)
[2016-11-11 20:42] VITALS: BP 125/82; PULSE 79; RESP 16; O2SAT 99
[2016-11-12] VITALS (10 sets, daily range): BP systolic 122–157; BP diastolic 60–92; PULSE 74–98; RESP 16; O2SAT 96–100
[2016-11-12] MEDS: 0.9% Sodium Chloride 1,000 ML IV SCH ×3 (01:51→21:31)
--- NOTE | 2016-11-12 01:53 | NUR ---
OFF PRECAUTIONS Stool for c.diff came back negative. Pt removed from enteric precautions, pt aware of this change.
[2016-11-12] MEDS: metroNIDAZOLE Inj 500 MG in IV Premix 1 EACH IV SCH (04:33)
[2016-11-12] MEDS: HYDROmorphone 0.5 mg/0.5 mL iSecure Syringe IVPUSH PRN ×5 (04:34→21:31)
[2016-11-12 06:05] LABS: BASOPHILS % (AUTO) 1.2 % (0-3); EOSINOPHILS % (AUTO) 0.4 % (0-5); MONOCYTES % (AUTO) 6.5 % (4-12); Mean Corpuscular Hemoglobin 29.9 pg (27.0-35.0); NEUTROPHILS % (AUTO) 81.7 % (40-74); Platelet Count 623 bil/L (150-400)
[2016-11-12 06:34] LABS: Magnesium 1.4 mg/dL (1.6-2.6)
[2016-11-12] MEDS ORDERED: Magnesium Sulf 4 Gm/100 mL H2O 4 GM in IV Premix 1 EACH IV ONE (06:40)
[2016-11-12 10:55] LABS: INR 1.01 ratio
[2016-11-12] MEDS ORDERED: PEG/Electrolytes 4,000 mL Solution PO ONE ×2 (12:10→16:20)
[2016-11-12 12:42] LABS: Unsaturated Iron Binding 152.3 ug/dL
--- NOTE | 2016-11-12 13:43 | PCM.PNMED ---
Subjective Date of Service Nov 12, 2016 Subjective diarrhea improved. Abdominal pain also improved. Afebrile. Stool negative for C. difficile. Feeling better overall. Drop in Hemoglobin noted. Exam Vital Signs Vital Sign - Last Date Time Temp Pulse Resp B/P Pulse Ox O2 Delivery O2 Flow Rate FiO2 11/12/16 10:01 37.1 82 16 149/91 98 Room Air Intake and Output 11/11/16 11/11/16 11/12/16 Cumulative From/Thru 15:00 23:00 07:00 11/11/16 16:14 - 11/12/16 06:19 Intake Total 250 ml 1502 ml 1752 ml Output Total 200 ml 200 ml Balance 50 ml 1502 ml 1552 ml Intake Oral 250 ml 250 ml IV Total 1502 ml 1502 ml Output Urine Total 200 ml 200 ml # Bowel Movements 0 0 Exam Gen. patient is lying comfortably in hospital bed HEENT: Head is normocephalic atraumatic, Pupils equal and reactive, extraocular movements intact, Lungs clear to auscultation bilaterally Heart regular rate and rhythm without murmurs gallops or rubs Abdomen mild LLQ abdominal tenderness, Extremities pulses are present dorsalis pedis posterior tibialis and radial. tSkin is warm and dry there are no rashes, Psych alert and oriented to person place and time Neuro cranial nerves II through XII are grossly intact Lymph: There is no lymphadenopathy appreciated in the cervical supra infraclavicular regions : no greene IVs and Medications Medications Reviewed: Medications were reviewed in detail Lab and Diagnostics Result Diagram: 11/12/1655411/12/16554 Microbiology Specimen: [id number] Collected: 11/03/16 Status: COMP Req#: [id number] Received: 11/03/16 Source: URINE CC Sp Desc : PP Subm Dr: Lin Muñoz MD Ordered: URINE CULT Procedure Result Verified Site Microbiology LUIS ALBERTO CULT URINE Final 11/05/16-729 Organism 1 ESCHERICHIA COLI U COLONY COUNT/QUANTITY >100,000 CFU/ml Cefazolin-predicts results for the oral agents, cefaclor,cefdinir, cefpodoximen, cefprozil, cefuroximne axetil, cephalexin and loracarbed when used for therapy of uncomplicated UTI's due to E. coli, K. pneumoniae, and Proteus mirabilis. Cefpodoxime, cefdinir and cefuroxime axetil may be tested individually because some isolates may be susceptible to these agents while testing resistant to cefazolin. (CLSI [id number] pg 53) 1. ESCHERICHIA COLI M.I.C Interp --------- ------ * AMOXICILLIN/CLAVULATE <=2 S * AMPICILLIN <=2 S * CEFAZOLIN (CEPHALOSPORIN) UTI 4 S * CEFEPIME <=1 S * CEFTRIAXONE <=1 S * CEFUROXIME SODIUM 4 S * CIPROFLOXACIN <=0.25 S * ERTAPENEM <=0.5 S * GENTAMICIN <=1 S * IMIPENEM <=1 S * LEVOFLOXACIN <=0.12 S * NITROFURANTOIN <=16 S * TETRACYCLINE <=1 S * TOBRAMYCIN <=1 S * TRIMETHOPRIM/SULFAMETHOXAZOLE <=20 S C.DIF NEGATIVE Assessment & Plan 66-year-old lady was no significant past medical history was recently treated for pyelonephritis came with watery diarrhea #Acute diarrhea -Initially suspected C. difficile, stool negative for C. difficile -Continue NS at 100ml/h -initially empirically started on Flagyl. Discontinue now -Discontinued Keflex # Suspected lower GI bleeding -Patient describes diarrhea as very dark but stool negative for occult blood -Hemoglobin drop also noted. Hemoglobin 7.8 .Hb 11.2 on 11/03 on prior admission - will send repeat stool occult -Consulted GI Dr Demarco #Anemia -Due to suspected lower GI bleed as above versus anemia of chronic disease # Recently treated for pyelonephritis -Patient continues to have left flank pain and CVA tenderness -Urinalyses unremarkable -We will hold off on antibiotics -We will consider repeating CT scan if continues to have pain # Recent [place], -Kidney function stable now # Hypokalemia, repleted #Persistent Elevated lipase -Possible chronic pancreatitis Due to alcohol # Thrombocytosis -Likely reactive from infection -Will need follow-up of the patient to make sure it resolves Patient admitted under inpatient status with expected length of stay > 2 midnights for severity of present symptoms, complexities of treatment plan and risk for adverse events Full code per patient Disposition: Discharged in 1-2 days if continues to improve Cedrick Wills MD Nov 12, 2016 13:43
--- NOTE | 2016-11-12 14:33 | CONS ---
[address] [address] CONSULTATION REPORT PATIENT: AGUEDA FELICIANO : 1950 MR#: [id number] ADMIT: 11/11/2016 JOB ID: [id number] DATE OF SERVICE: REASON FOR CONSULTATION: Melena with anemia. HISTORY OF PRESENT ILLNESS: The patient is a 66-year-old woman, who was apparently healthy up until early October when she began experiencing lower back pain that extended to both flanks. This had gone on for about almost a week and then she presented to the emergency department and she was noted to be in acute renal insufficiency. Imaging done at that time showed right renal enlargement with mild perinephric fat stranding bilaterally. Urinalysis done which showed large leukocyte esterase, 11-50 WBCs, and urine culture eventually grew out E. coli. She was started on antibiotics; initially Augmentin, which she was not able to tolerate and then discharged home with Keflex. She states that after going home within a day she developed diarrhea multiple times a day and it was black in color. Therefore she presented back to the emergency department here and then was admitted to the hospital. Since her admission yesterday, she has had stool testing for C diff, which has come back negative. Her admission hemoglobin yesterday was 7.8 with a hematocrit 24.8. Her discharge hemoglobin was 9.1 and her discharge hematocrit was 27.4. Her initial hematocrit on November 03 when she initially presented for pyelonephritis was 32.8 with a hemoglobin of approximately 11.8. Her MCV was normal. She has had no iron studies done. Additionally her platelet count on her initial admission was 525 and on her blood work yesterday her platelet count has increased to 623. Since admission, she has had no further diarrhea. She was empirically started on IV metronidazole which has since been discontinued. She denied any abdominal pain following discharge from the hospital. She denied any nausea or vomiting or fevers, chills or sweats. However since admission to the hospital, she states that she has developed some nausea and she reports that though she does not have pain she is tender to palpation in the abdomen. Upon further discussion with her, the patient states that she has had intermittent diarrhea for the past couple of months. She reports that this is new for her and she has noticed that she may go 3-4 days with normal bowel movements, then followed by diarrhea and then she may have diarrhea for several days. She denies any history of chronic constipation. She denies any chronic pain medicine use. She does report having had a colonoscopy more than 10 years ago which was normal. She denies any family history of colon cancer. She does report some mild weight loss but states that she thought it may be related to her current infection. She has not had any upper GI complaints prior to being admitted to the hospital such as dysphagia, hematemesis, retrosternal burning or early satiety. PAST MEDICAL HISTORY: Significant for breast cancer, anxiety disorder. PAST SURGICAL HISTORY: Includes cholecystectomy in the 1970s followed by surgery for endometriosis in the late 70s as well. FAMILY HISTORY: Negative for any liver disease or any GI illnesses. SOCIAL HISTORY: She denies any tobacco use. She up until two months ago was drinking a beer every evening; however over the last two months she states that she has developed a distaste for alcohol and has not been doing that. 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 REVIEW OF SYSTEMS: As mentioned above. In addition, as mentioned above, her GI complaints date back to approximately two months with this change in bowel habits and intermittent diarrhea. She does also consume well water occasionally and she is unsure if this well has been tested, but has noticed in the past that occasionally she will develop some nausea when she drinks well water. PHYSICAL EXAMINATION: Her temperature is 37.1, her pulse is 82, her blood pressure is 149/91, respiratory rate is 16, O2 saturation is 98% on room air. Generally, she is an elderly appearing woman who appears to be in no apparent distress. Is oriented to person, place, and time. Answers questions appropriately. HEENT: No pallor. No icterus. Oropharynx is clear. Chest exam is clear to auscultation bilaterally. Cardiovascular exam: S1, S2 heard. Abdomen is soft. She does have some mild diffuse tenderness. There is no rebound or guarding. Bowel sounds are appreciated. Extremities with trace edema. LABORATORY DATA: On admission from yesterday shows a white blood cell count 9, hemoglobin of 7.8, hematocrit 24.8, MCV of 95, platelet count 623 with a neutrophil percentage of 81% and 9% lymphocytes. PT is 10.8. INR is 1.01. Her sodium was 138, potassium 4.1, chloride of 104, CO2 of 18, BUN of 6, creatinine of 0.77. Glucose of 95. Calcium is 7.8. Magnesium of 1.4. Her iron studies show an iron level of 15, TIBC of 167, iron saturation of 9%. Her LFTs were normal with the exception of total protein being 5 and albumin 2.4. Her procalcitonin was 0.14. IMAGING TEST: Which included a CT of the abdomen and pelvis without contrast from November 03 did not show any abnormal bowel loops. Right renal enlargement was noted with perinephric stranding but otherwise unremarkable. ASSESSMENT AND PLAN: 1. A 66-year-old woman with a recent hospital admission for pyelonephritis who has an iron deficiency anemia and recent change in her bowels, presenting with melena. With respect to her diarrhea, I would recommend completing the stool study workup; she does have well water exposure; to rule out any infection. The diarrhea could definitely be related to her recent antibiotic use; however with the history of occasional diarrhea dating back two months, I am concerned about neoplasm in her colon as she is also anemic with iron deficiency, and therefore would recommend colonoscopy for further evaluation. I do not believe we are dealing with an upper GI source for her anemia. She has essentially no upper GI complaints; however if her colonoscopy is normal we will proceed with upper endoscopy to evaluate her iron deficiency anemia. 2. Thrombocytosis. Thrombocytosis can definitely be seen in acute inflammation; however this has not improved despite treatment with antibiotics, and therefore again I am concerned about malignancy. I did discuss with the patient regarding pursuing endoscopy to further evaluate her complaints of melena and her anemia. She was agreeable to proceed and therefore we will start colon prep today and plan for colonoscopy and possibly upper endoscopy tomorrow. Thank you for allowing me to participate in this patient's care. If you should have any further questions, please do not hesitate to contact me.
--- NOTE | 2016-11-12 15:56 | NUR ---
Social Work Note: Screen Note Data& Assessment: EMR reviewed. patient is a 66 y/o old female admitted on 11/11/16 for diarrhea. Pt has [facility] for insurance coverage and sees no one for primary care. Pt lives alone and is independent at baseline. Pt is currently independent in her room. No discharge needs identified at this time. SW to continue to follow if any needs arise. Plan: Anticipated discharge home via POV when medically ready. No discharge needs identified at this time. SW to continue to follow if any needs arise. Radha Latif, ANTONIA, ACM
--- NOTE | 2016-11-12 17:36 | NUR ---
Bowel Prep: Colyte started@ approx 1730. Discussed w/patient that she will have 2liters tonight and have the remaining 2liters @ 0500 and educated on frequency of bowel movements to clear bowel for procedure. Verbalized understanding. Placed BSC near bed for patient convenience. Patient also aware that a stool sample is needed for additional testing.
[2016-11-13] VITALS (10 sets, daily range): BP systolic 135–167; BP diastolic 78–99; PULSE 68–102; RESP 14–22; O2SAT 98–100
[2016-11-13] MEDS: HYDROmorphone 0.5 mg/0.5 mL iSecure Syringe IVPUSH PRN ×4 (01:39→13:54)
--- NOTE | 2016-11-13 05:09 | NUR ---
Patient request/colon prep Patient requested to have coffee at 0445, but is NPO for planned colonoscopy. Patient is to finish colon prep this morning after drinking half of it last night. Reminded patient of NPO status except for colon prep. Patient became agitated, said, "If I can't have coffee, I'm not going to drink the rest of that. If you guys are going to be so literal about whether or not I can drink anything, then I'm not going to drink anything." Attempted to explain the rationale regarding only having the colon prep, and patient said, "I don't care. I'm not going to drink it if I can't have coffee. The doctor said that I can have coffee." Attempted to explain that having coffee while NPO status can delay or cancel her planned procedure, and she said, "I don't care. I'm sick of all this." GI MD paged at 0500 with patient request for coffee. MD okayed coffee with colon prep to follow. Patient updated on conversation with MD. Patient apologized for her agitation, was thankful for the coffee, and agreeable to starting the colon prep after coffee.
--- NOTE | 2016-11-13 06:12 | NUR ---
Colon prep finished Patient finished colon prep at 0610.
--- NOTE | 2016-11-13 07:46 | NUR ---
Off Unit: Patient transported to Endoscopy dept @ approx 0745 via stretcher accompanied by Endo staff. plant facilities technician notified. Alert & oriented, states a tolerable abdominal pain level of 7/10 on pain scale.
[2016-11-13] MEDS: 0.9% Sodium Chloride 1,000 ML IV SCH (07:51)
[2016-11-13] MEDS: Lactated Ringer's 1,000 ML IV SCH ×2 (08:01→08:10)
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
[2016-11-13] MEDS ORDERED: MetoCLOpramide 5 mg/mL 2 mL Inj IVPUSH PRN (08:05)
[2016-11-13] MEDS ORDERED: Ondansetron 2 mg/mL 2 mL Inj IVPUSH PRN (08:05)
--- NOTE | 2016-11-13 09:20 | PCM.ANEP1 ---
Post Anesthesia Phase 1 PACU Phase 1 Assessment Vital Signs Vital Signs Date Time Temp Pulse Resp B/P Pulse Ox O2 Delivery O2 Flow Rate FiO2 11/13/16 09:06 102 11/13/16 08:50 77 14 143/95 98 Room Air 11/13/16 08:47 71 14 138/94 99 Room Air 11/13/16 08:44 68 14 143/87 100 Room Air 11/13/16 05:38 75 11/13/16 05:20 37.1 94 22 135/78 98 Room Air Anesthetic Administered: GA Level of Alertness: Awake, talking WALLACE's with Equal Strength: Yes Pain: No Pain Scale Score: 0 Nausea or Vomiting: No Cardiovascular Function and Hy: Yes Oxygen Delivery: Nasal Cannula Lungs: Clear to Auscultation, Normal Air Movement Complications: No Jamar Ndiaye MD Nov 13, 2016 09:20
--- NOTE | 2016-11-13 09:26 | PCM.PNMED ---
Subjective Date of Service Nov 13, 2016 Subjective Diarrhea initially improved, she had brown watery stool overnight on bowel prep . Afebrile. C. difficile negative x2 . going for colonoscopy +/- EGD Exam Vital Signs Vital Sign - Last Date Time Temp Pulse Resp B/P Pulse Ox O2 Delivery O2 Flow Rate FiO2 11/13/16 09:06 102 11/13/16 08:50 14 143/95 98 Room Air 11/13/16 05:20 37.1 Intake and Output 11/12/16 11/12/16 11/13/16 Cumulative From/Thru 15:00 23:00 07:00 11/11/16 16:14 - 11/13/16 05:20 Intake Total 800 ml 2262 ml 0 ml 4814 ml Output Total 1550 ml 2250 ml 4000 ml Balance -750 ml 12 ml 0 ml 814 ml Intake Oral 800 ml 1200 ml 0 ml 2250 ml IV Total 1062 ml 2564 ml Output Urine Total 1550 ml 2100 ml 3850 ml Emesis 150 ml 150 ml # Voids 2 2 # Bowel Movements 3 6 9 Exam Gen. patient is lying comfortably in hospital bed HEENT: Head is normocephalic atraumatic, Pupils equal and reactive, extraocular movements intact, Lungs clear to auscultation bilaterally Heart regular rate and rhythm without murmurs gallops or rubs Abdomen mild LLQ abdominal tenderness,R CVA tenderness improved Extremities pulses are present dorsalis pedis posterior tibialis and radial. Skin is warm and dry there are no rashes, Psych alert and oriented to person place and time Neuro cranial nerves II through XII are grossly intact Lymph: There is no lymphadenopathy appreciated in the cervical supra infraclavicular regions : no greene IVs and Medications Medications Reviewed: Medications were reviewed in detail Lab and Diagnostics Result Diagram: 11/12/1655411/12/16554 Microbiology Specimen: [id number] Collected: 11/03/16 Status: COMP Req#: [id number] Received: 11/03/16 Source: URINE CC Sp Desc : PP Subm Dr: Lin Muñoz MD Ordered: URINE CULT Procedure Result Verified Site Microbiology LUIS ALBERTO CULT URINE Final 11/05/16-729 Organism 1 ESCHERICHIA COLI U COLONY COUNT/QUANTITY >100,000 CFU/ml Cefazolin-predicts results for the oral agents, cefaclor,cefdinir, cefpodoximen, cefprozil, cefuroximne axetil, cephalexin and loracarbed when used for therapy of uncomplicated UTI's due to E. coli, K. pneumoniae, and Proteus mirabilis. Cefpodoxime, cefdinir and cefuroxime axetil may be tested individually because some isolates may be susceptible to these agents while testing resistant to cefazolin. (CLSI R989-C03 pg 53) 1. ESCHERICHIA COLI M.I.C Interp --------- ------ * AMOXICILLIN/CLAVULATE <=2 S * AMPICILLIN <=2 S * CEFAZOLIN (CEPHALOSPORIN) UTI 4 S * CEFEPIME <=1 S * CEFTRIAXONE <=1 S * CEFUROXIME SODIUM 4 S * CIPROFLOXACIN <=0.25 S * ERTAPENEM <=0.5 S * GENTAMICIN <=1 S * IMIPENEM <=1 S * LEVOFLOXACIN <=0.12 S * NITROFURANTOIN <=16 S * TETRACYCLINE <=1 S * TOBRAMYCIN <=1 S * TRIMETHOPRIM/SULFAMETHOXAZOLE <=20 S C.DIF NEGATIVE Assessment & Plan 66-year-old lady was no significant past medical history was recently treated for pyelonephritis came with watery diarrhea # Suspected lower GI bleeding -Patient describes diarrhea as very dark ( tarry ) but stool negative for occult blood -Hemoglobin drop also noted. Hemoglobin 7.8 .Hb 11.2 on 11/03 on prior admission - repeat stool occult negative -Consulted GI Dr Demarco -going for colonoscopy +/- EGD today -she has been having on and off diarrhea for 2 months,sxs concerning for cancer given iron def anemia.CEA sent #Anemia -Due to suspected lower GI bleed as above #Acute diarrhea,improved -Initially suspected C. difficile, stool negative for C. difficile x2 -Continue NS at 100ml/h -initially empirically started on Flagyl. Discontinued 11/12 -Discontinued Keflex # Recently treated for pyelonephritis -Patient continues to have left flank pain and CVA tenderness but improving -Urinalyses unremarkable -We will hold off on antibiotics -We will consider repeating CT scan if continues to have pain # Recent [place], -Kidney function stable now # Hypokalemia, repleted #Persistent Elevated lipase -Possible chronic pancreatitis Due to alcohol # Thrombocytosis -Likely reactive from infection,malignancy also possible given persistence of thrombocytosis despite treatment of infection -Will need follow-up of the patient to make sure it resolves Patient admitted under inpatient status with expected length of stay > 2 midnights for severity of present symptoms, complexities of treatment plan and risk for adverse events Full code per patient Disposition: Discharged in 1-2 days Resuscitation Status: CPR: Attempt Resuscitation Cedrick Wills MD Nov 13, 2016 09:26
[2016-11-13 09:53] LABS: BASOPHILS % (AUTO) 1.7 % (0-3); EOSINOPHILS % (AUTO) 0.6 % (0-5); MONOCYTES % (AUTO) 8.3 % (4-12); Mean Corpuscular Hemoglobin 30.6 pg (27.0-35.0); NEUTROPHILS % (AUTO) 79.6 % (40-74); Platelet Count 721 bil/L (150-400)
[2016-11-13 10:02] LABS: INR 1.06 ratio
--- NOTE | 2016-11-13 11:15 | PCM.DIMED ---
Discharge Instructions Date of Service Nov 13, 2016 Dates of Hospitalization Nov 11, 2016 at 15:29 Discharge Diagnosis Discharge Diagnosis # Anemia -iron deficiency and anemia of chronic disease -Underwent endoscopy and colonoscopy which is unrevealing #Acute diarrhea,improved # Recently treated for pyelonephritis # Recent [place], # Hypokalemia, repleted #Persistent Elevated lipase -Possible chronic pancreatitis Due to alcohol # Thrombocytosis Diet Low fat, Low Sodium Activity Limited until seen by PCP Call your provider Fever or Chills, Shortness of breath, Bleeding, Chest pain, Vomitting, Excessive diarrhea, Weakness (unilateral) Patient Instructions You were hospitalized to due to watery diarrhea. Initially suspected C. difficile and empirically started treatment but Clostridium difficile ruled out.You also were noted to have anemia ,stool occult test negative. You underwent colonoscopy and endoscopy which is unrevealing for cause of anemia. Urinalysis is negative for infection and you developed diarrhea on antibiotics thus discontinued antibiotics. Please follow-up with PCP as residency clinic for workup of anemia. Follow-up plan Please follow-up with PCP in 1 week Follow-up Provider: [facility] Follow-up with PCP in: 1 week Provider: Yuniel Demarco MD Follow-up in: 2 weeks Cedrick Wills MD Nov 13, 2016 11:15
--- NOTE | 2016-11-13 11:23 | PCM.DC.MED ---
Discharge Summary Date of Service Nov 13, 2016 Dates of Hospitalization Date of Hospital Admission Nov 11, 2016 at 15:29 Date of Discharge: Nov 13, 2016 Providers: Admitting Physician: Cedrick Carpenter MD Primary Care Physician: Nopalicia Attending Physician: Cedrick Carpenter MD Diagnosis at Time of Discharge Diagnosis at Time of Discharge # Anemia -iron deficiency and anemia of chronic disease -Underwent endoscopy and colonoscopy which is unrevealing #Acute diarrhea,improved # Recently treated for pyelonephritis # Recent [place], # Hypokalemia, repleted #Persistent Elevated lipase -Possible chronic pancreatitis Due to alcohol # Thrombocytosis Consultations GI Dr Demarco Procedures XRay, CTs & MRIs PROCEDURE: CT ABDOMEN AND PELVIS WITHOUT CONTRAST ([id number]) INDICATIONS: Right CVA/Right lower quadrant pain TECHNIQUE: After the administration of oral contrast, 5 mm thick sections acquired from the diaphragms to the symphysis. 5 mm coronal and sagittal reformats were performed. For radiation dose reduction, the following was used: automated exposure control, adjustment of mA and/or kV according to patient size. COMPARISON: None. FINDINGS: Image quality: Excellent. ABDOMEN: Lung bases: Lung bases are clear. Heart size is normal. Solid organs: Liver and spleen are normal in size. Gallbladder is surgically absent. Pancreas is normal in size. No adrenal nodules. The right kidney is enlarged, and is within the right lower quadrant/right hemipelvis. Mild perinephric fat stranding is present bilaterally. No hydronephrosis. Peritoneum and bowel: Bowel loops demonstrate normal wall thickness and caliber. No free fluid or air. Appendix not seen. No evidence of appendicitis. Nodes and vessels: No retroperitoneal or mesenteric adenopathy by size criteria. Aorta and inferior vena cava are normal in size. Miscellaneous: No ventral hernias. PELVIS: Genitourinary: Bladder wall thickness is normal. Miscellaneous: No inguinal hernias or adenopathy. Bones: No suspicious bony lesions. No vertebral body compression fractures. IMPRESSION: 1. Right renal enlargement, suggestive of infarct versus edema versus inflammation/infection. 2. No hydronephrosis. 3. Appendix not seen. No evidence of appendicitis. Dictated by: Sony Bourgeois M.D. on 11/03/2016 at 12:15 Invasive Procedures Endoscopy and colonoscopy done on 11/13 unrevealing for source of anemia. Report pending Brief History per HPI Patient is a 66-year-old lady was no significant past medical history was recently hospitalized from 11/03- 11/08 after she presented with back and flank pain. She was treated for pansensitive Escherichia coli pyelonephritis with ceftriaxone based on urine culture and CT finding. She was discharged on Keflex for 4 more days to complete 10 day treatment. She also was treated for [place] with IV fluids. Initial creatinine 3.15 which improved to 0.9 up on discharge. She states one day post discharge she started to have sudden onset watery black diarrhea which continued for the last 2 days. She had 10 episodes yesterday during the day and 6 episodes overnight. Did not have any episodes today.she also complains of moderate diffuse bilateral lower abdominal pain. Denies vomiting. Denies fever. She also continues to have right flank pain. She went to urgent care clinic this morning and sent for direct admit. Lab sent at urgent care WBC 11.2, hemoglobin 9.7, platelets 848, creatinine 0.88 , potassium 3.0, lipase 190, urinalysis 1+ leukocyte esterase, 0-5 wbc's Hospital Course 66-year-old lady was no significant past medical history was recently treated for pyelonephritis came with watery diarrhea #Anemia -Iron deficiency anemia and anemia of chronic disease -Initially suspected lower GI bleed given complaint of tarry stool per patient. Patient describes diarrhea as very dark ( tarry ). Occult blood negative 2. Endoscopy and colonoscopy negative for etiology of anemia. Report pending. --Hemoglobin drop also noted. Hemoglobin 7.8 .Hb 11.2 on 11/03 on prior admission - GI Dr Demarco -..CEA sent . Follow-up results with PCP at the residents clinic and Gi #Acute diarrhea,improved -Initially suspected C. difficile, stool negative for C. difficile x2 -Treated with NS at 100ml/h -initially empirically started on Flagyl. Discontinued 11/12 -Discontinued Keflex # Recently treated for pyelonephritis -Patient continues to have left flank pain and CVA tenderness but improving -Urinalyses unremarkable -We will hold off antibiotics -May consider repeating CT scan with IV contrast outpatient if continues to have pain and also as workup of anemia and suspected chronic pancreatitis # Recent [place], -Kidney function stable now # Hypokalemia, repleted #Persistent Elevated lipase due to suspected chronic pancreatitis -Possible chronic pancreatitis Due to alcohol # Thrombocytosis -Likely reactive from infection,malignancy also possible given persistence of thrombocytosis despite treatment of infection -Will need follow-up of the patient to make sure it resolves Full code per patient Disposition: Discharged Home Condition on discharge stable Exam Vital Signs (Last) Date Time Temp Pulse Resp B/P Pulse Ox O2 Delivery O2 Flow Rate FiO2 11/13/16 10:19 37.1 73 18 162/83 99 Room Air Exam Gen. patient is lying comfortably in hospital bed HEENT: Head is normocephalic atraumatic, Pupils equal and reactive, extraocular movements intact, Lungs clear to auscultation bilaterally Heart regular rate and rhythm without murmurs gallops or rubs Abdomen mild LLQ abdominal tenderness,R CVA tenderness improved Extremities pulses are present dorsalis pedis posterior tibialis and radial. Skin is warm and dry there are no rashes, Psych alert and oriented to person place and time Neuro cranial nerves II through XII are grossly intact Lymph: There is no lymphadenopathy appreciated in the cervical supra infraclavicular regions : no greene Test 11/12/16 10:26 11/13/16 09:10 Iron Level 15ug/dL (35-150) Total Iron Binding Capacity 167ug/dL (250-450) Percent Iron Saturation 9%sat (15-50) Unsaturated Iron Binding 152.3ug/dL Procalcitonin 0.14ng/mL (0.00-0.08) White Blood Count 9.7th/mm3 (3.8-10.1) Red Blood Count 3.14mil/mm3 (3.90-5.20) Hemoglobin 9.6g/dL (12.0-15.6) Hematocrit 29.2% (35.0-46.0) Mean Corpuscular Volume 93.0fL (81-100) Mean Corpuscular Hemoglobin 30.6pg (27.0-35.0) Mean Corpuscular Hemoglobin Concent 32.9% (32.0-37.0) Red Cell Distribution Width 14.2% (12.3-15.4) Platelet Count 721bil/L (150-400) Neutrophils (%) (Auto) 79.6% (40-74) Lymphocytes (%) (Auto) 9.2% (14-46) Monocytes (%) (Auto) 8.3% (4-12) Eosinophils (%) (Auto) 0.6% (0-5) Basophils (%) (Auto) 1.7% (0-3) Prothrombin Time 11.4sec (8.1-12.5) Prothromb Time International Ratio 1.06ratio Sodium Level 136mEq/L (134-144) Potassium Level 4.3mEq/L (3.5-5.2) Chloride Level 100mEq/L (97-108) Carbon Dioxide Level 17mmol/L (18-29) Blood Urea Nitrogen 3mg/dL (8-27) Creatinine 0.76mg/dL (0.57-1.00) Estimat Glomerular Filtration Rate 110mL/min (>59) Glucose Level 78mg/dL (60-99) Calcium Level 8.5mg/dL (8.5-10.1) Magnesium Level 2.0mg/dL (1.6-2.6) Total Bilirubin 0.5mg/dL (0.0-1.2) Aspartate Amino Transf (AST/SGOT) 19U/L (0-50) Alanine Aminotransferase (ALT/SGPT) 17U/L (0-32) Alkaline Phosphatase 87U/L (25-165) Total Protein 6.2g/dL (6.4-8.4) Albumin 3.2g/dL (3.4-5.0) Microbiology Results Specimen: [id number] Collected: 11/03/16 Status: COMP Req#: [id number] Received: 11/03/16 Source: URINE CC Sp Desc : PP Juan Dr: Lin Muñoz MD Ordered: URINE CULT Procedure Result Verified Site Microbiology LUIS ALBERTO CULT URINE Final 11/05/16-7130 Organism 1 ESCHERICHIA COLI U COLONY COUNT/QUANTITY >100,000 CFU/ml Cefazolin-predicts results for the oral agents, cefaclor,cefdinir, cefpodoximen, cefprozil, cefuroximne axetil, cephalexin and loracarbed when used for therapy of uncomplicated UTI's due to E. coli, K. pneumoniae, and Proteus mirabilis. Cefpodoxime, cefdinir and cefuroxime axetil may be tested individually because some isolates may be susceptible to these agents while testing resistant to cefazolin. (CLSI B680-Z86 pg 53) 1. ESCHERICHIA COLI M.I.C Interp --------- ------ * AMOXICILLIN/CLAVULATE <=2 S * AMPICILLIN <=2 S * CEFAZOLIN (CEPHALOSPORIN) UTI 4 S * CEFEPIME <=1 S * CEFTRIAXONE <=1 S * CEFUROXIME SODIUM 4 S * CIPROFLOXACIN <=0.25 S * ERTAPENEM <=0.5 S * GENTAMICIN <=1 S * IMIPENEM <=1 S * LEVOFLOXACIN <=0.12 S * NITROFURANTOIN <=16 S * TETRACYCLINE <=1 S * TOBRAMYCIN <=1 S * TRIMETHOPRIM/SULFAMETHOXAZOLE <=20 S C.DIF NEGATIVE Discharge Medications Discharge Medications Calcium Carbonate/Vitamin D3 (Calcium + Vitamin D Tablet) 1 Each Tablet 1 EACH PO DAILY (Reported) Ferrous Sulfate (Ferrous Sulfate) 324 Mg Tablet.dr 324 MG PO DAILY Prescribed by: CEDRICK CARPENTER MD Multivits-Min/FA/Lycopene/Lut (Centrum Silver Tablet) 1 Each Tablet 1 EACH PO DAILY (Reported) Followup Plan Disposition: Home Follow-up plan Please follow-up with PCP in 1 week Discharge Diet: Low fat, Low Sodium Discharge Activity: Limited until seen by PCP Patient Instructions You were hospitalized to due to watery diarrhea. Initially suspected C. difficile and empirically started treatment but Clostridium difficile ruled out.You also were noted to have anemia ,stool occult test negative. You underwent colonoscopy and endoscopy which is unrevealing for cause of anemia. Urinalysis is negative for infection and you developed diarrhea on antibiotics thus discontinued antibiotics. Please follow-up with PCP as residency clinic for workup of anemia. Follow-up Provider: [facility] Follow-up with PCP in: 1 week Provider: Yuniel Demarco MD Follow-up in: 2 weeks Time spent 35 minutes copies to: Yuniel Demarco MD; [facility] Cedrick Carpenter MD Nov 13, 2016 11:23 Cedrick Carpenter MD Nov 13, 2016 11:23
[2016-11-13] MEDS ORDERED: FERR324T2 PO (11:24)
--- NOTE | 2016-11-13 12:59 | NUR ---
Bleeding: Approximately teaspoon amount of bright red blood in bottom of toilet after patient voided. Patient had colonoscopy this am. notified. Addendum: 11/13/16 at 1419 by BETO GAMBOA RN VSSJulieta CHAPARRO states ok to proceed with discharge after discussing with GI MD.
--- NOTE | 2016-11-13 15:06 | ENDO ---
[address] [address] ENDOSCOPY PROCEDURE PATIENT: AGUEDA FELICIANO : 1950 MR#: [id number] ADMIT: 11/11/2016 JOB ID: [id number] PROCEDURE: Esophagogastroduodenoscopy. INDICATION: Anemia and melena, and recent change in bowel habits. Please see Dr. Zana Ndiaye's anesthesia report for details regarding ASA classification, Mallampati score, and medications. INSTRUMENT USED: [id number]. PROCEDURE DETAILS: After informed consent was obtained, the patient was brought into the GI suite, where she was placed on oxygen via nasal cannula and monitored with continuous pulse oximeter, telemetry, and blood pressure monitoring. A time-out was performed. Then, she was placed in the left lateral decubitus position. At patient's request, medicines were not administered for sedation. The standard upper endoscope was then introduced through the bite block and advanced under direct visualization to the second portion of the duodenum without difficulty. FINDINGS: 1. Normal-appearing duodenal bulb, first and second portion. Bile-stained mucosa was noted throughout. Multiple random biopsies were obtained in the duodenum. 2. Normal-appearing pylorus, antrum, and gastric body. 3. Retroflexed views in the gastric body revealed a normal-appearing cardia and fundus. 4. Normal-appearing GE junction with a regular Z-line at approximately 35 cm. 5. Normal-appearing esophagus. IMPRESSION: Normal esophagogastroduodenoscopy exam to second portion of duodenum. No findings to explain the patient's anemia. RECOMMENDATIONS: Proceed to colonoscopy. SECOND PROCEDURE PERFORMED: Colonoscopy. Please see above for ASA classification, Mallampati score. For the colonoscopy, the patient did receive medications secondary to discomfort. Please see Dr. Zana Ndiaye's notes for details. INSTRUMENT USED: [id number]. Prep quality was good. PROCEDURE DETAILS: After completion of the EGD exam, the patient was turned and then a digital rectal exam was performed, which was unremarkable. The colonoscope was then inserted into the rectum and advanced under direct visualization to the terminal ileum, which was identified by the presence of the ileocecal valve and appendiceal orifice. Once the terminal ileum was reached, the colonoscope was then withdrawn back into the rectum as the mucosa and lumen were examined. In the rectum, retroflexion was performed. Following retroflexion, remaining air in the rectum was suctioned, and procedure was completed. FINDINGS: 1. Normal-appearing terminal ileum. Multiple random biopsies were obtained. 2. The colon mucosa from rectum to cecum appeared normal. Multiple random biopsies were obtained. 3. In the ascending colon, there was a diminutive polyp that was removed with cold biopsy forceps. IMPRESSION: Ascending colon polyp. Otherwise normal exam from rectum to terminal ileum. RECOMMENDATIONS: 1. Await biopsy results. 2. Continue to follow H and H. 3. Would recommend starting iron supplementation and following H and H. If anemia does not improve, consider capsule small bowel endoscopy. COMPLICATIONS: None. ESTIMATED BLOOD LOSS: Less than 5 mL. CC: Primary care provider.
--- NOTE | 2016-11-13 15:34 | NUR ---
Discharge: Patient discharged to home @ approx 1535. IV d/c'd intact, telemetry removed, anesthesia tech notified. Personal belongings sent home with patient. Reviewed new prescription, d/c instructions, home medications and follow up w/PCP and GI. Verbalized understanding. Patient ambulated to main entrance accompanied by [employer] and family. No apparent distress at time of discharge.
[2016-11-13] MEDS ORDERED: Propofol 10,000 mCg/mL 20 mL Inj ONE (15:36)
--- NOTE | 2016-11-17 19:20 | PATH ---
SURGICAL PATHOLOGY Attending Physician:Darian Antony CASE STATUS: Signed Out PATIENT NAME: AGUEDA FELICIANO PID: [id number] : 1950 DATE COLLECTED:11/13/2016 00:00 SPECIMEN: 1: Duodenum, Biopsy 2: Ileum, Biopsy 3: Colon, Biopsy 4: Colon, Biopsy CLINICAL HISTORY: ANEMIA, DIARRHEA 1). DUODENUM BIOPSY 2). TERMINAL ILEUM BIOPSY 3). RANDOM COLON BIOPSY 4). ASCENDING COLON POLYP X1 FINAL DIAGNOSIS: 1. Duodenum, Biopsy: Duodenal mucosa with no diagnostic abnormality. Negative for active inflammation, features of sprue, dysplasia, or malignancy. 2. Terminal Ileum, Biopsy: Superficial portions of small bowel mucosa with no significant diagnostic abnormality. Negative for active inflammation, granulomas, dysplasia, and malignancy. 3. Random Colon Biopsies: Focal active inflammation. Negative for dysplasia and neoplasia. Please see comment. 4. Ascending Colon Polyp, Biopsy: Portion of tubular adenoma x 1; negative for high grade dysplasia. Polypoid portions of colorectal mucosa x 2 with no diagnostic abnormality. ICD10: K52.9 NOTE: Part 3: Histologic sections demonstrate superficial portions of colorectal mucosa with focal active inflammation. The differential diagnosis includes an acute self-limited bacterial colitis, the effects of nonsteroidal anti-inflammatory drugs, the effect of sodium phosphate-containing bowel preparation solutions, and, in the appropriate clinical setting, Crohn's disease. No dysplasia identified. GROSS DESCRIPTION: The specimen is received in four formalin filled containers labeled with the patient's name. 1). The specimen is sublabeled "duodenum" and consists of 4 portions of tissue which aggregate to 0.3 x 0.3 x 0.2 CM. The specimen is entirely submitted in cassette 1A. 2). The specimen is sublabeled "TI" and consists of 2 portions of tissue which aggregate to 0.3 x 0.3 x 0.2 CM. The specimen is entirely submitted in cassette 2A. 3). The specimen is sublabeled "random colon" and consists of multiple portions of tissue which aggregate to 0.5 x 0.5 x 0.3 CM. The specimen is entirely submitted in cassette 3A. 4). The specimen is sublabeled "ascending colon polyp" and consists of 3 portions of tissue which aggregate to 0.3 x 0.3 x 0.2 CM. The specimen is entirely submitted in cassette 4A. 11/14/2016 [facility] ICD-9 CODES: CPT CODES: 1: 76857 2: 71284 3: 06695 4: 23141 Electronically Signed Out Renetta Anthony MD [facility] [address], [place] [address] Technical component performed at [facility], [facility] [address], [place], [address]
== END 2016-11-13 15:37 | disposition home or self-care (01) | DRG 812 ==
LOC: MPC 15:29
PROVIDERS: ADMIT Internal Medicine; ATTEND Internal Medicine
PROC: 0DBG8ZZ Excision of Left Large Intestine, Via Natural or Artificial Opening Endoscopic (ICD-10-PCS; 2016-11-13)
PROC: 0DBG8ZX Excision of Left Large Intestine, Via Natural or Artificial Opening Endoscopic, Diagnostic (ICD-10-PCS; principal; 2016-11-13 08:00)
PROC: 0DB98ZX Excision of Duodenum, Via Natural or Artificial Opening Endoscopic, Diagnostic (ICD-10-PCS; 2016-11-13 08:00)
DX: D50.0 Iron deficiency anemia secondary to blood loss (chronic) (principal); K86.0 Alcohol-induced chronic pancreatitis; E87.6 Hypokalemia; D47.3 Essential (hemorrhagic) thrombocythemia; Z85.3 Personal history of malignant neoplasm of breast; K63.5 Polyp of colon; R19.7 Diarrhea, unspecified; Z72.89 Other problems related to lifestyle

== ENCOUNTER 2017-02-15 09:53 | Inpatient (IN) | payer OTHER ==
[~2017-02-15] VITALS: Ht 165.1 cm; Wt 52.5 kg
[2017-02-15] VITALS (10 sets, daily range): BP systolic 149–216; BP diastolic 97–126; PULSE 76–102; RESP 14–22; O2SAT 95–99
[~2017-02-15 09:53] MED LIST changes: -CEPH500C PO; +FERR324T2 PO; -TRAM-14 PO
--- NOTE | 2017-02-15 10:10 | ED.REPORT ---
HPI-Abd Pain F 40 and Over Date of Service Feb 15, 2017 ED Provider: Dr. Pulido Pt is a 66 year old female with a hx of pancreatitis and e.coli presenting to the ED complaining of nausea and diarrhea for 1 week. Associated symptoms include vomiting onset today, dark bloody stool with clots onset this morning, and shaking chills. She also complains of rib pain after a big bear hug a few days ago. She states that this pain is much more severe than when she had e.coli in her kidneys. Pt reports that she used to drink alcohol very frequently , but that she has decreased her EtOH intake. Nursing Notes Stated Complaint: NAUSEA AND VOMITING Chief Complaint: Female Abdominal Pain Nursing Notes Reviewed: Yes Allergies: Coded Allergies: clindamycin (Verified Allergy, Unknown, 11/11/16) prednisone (Verified Allergy, Unknown, 11/11/16) cephalexin (Verified Adverse Reaction, Severe, jaw stiffness, body aches, nausea, dizziness, 11/11/16) took together with tramadol-unsure wich one of these two has caused a reaction tramadol (Verified Adverse Reaction, Severe, jaw stiffness, body aches, nausea, dizziness, 11/11/16) took together with cephalexin-unsure which one of these two medications caused a reaction acetaminophen (Verified Adverse Reaction, Intermediate, Nausea, "it does nothing", 11/11/16) aspirin (Verified Adverse Reaction, Intermediate, 11/11/16) ibuprofen (Verified Adverse Reaction, Intermediate, Nausea, "It doesn't work", 11/11/16) permethrin (Verified Adverse Reaction, Intermediate, Nausea, 11/11/16) codeine (Verified Adverse Reaction, Unknown, Nausea,Vomiting, flushed, ) morphine (Verified Adverse Reaction, Unknown, "It didn't work at all", ) Scheduled Calcium Carbonate/Vitamin D3 (Calcium + Vitamin D Tablet) 1 Each Tablet 1 EACH PO DAILY Ferrous Sulfate (Ferrous Sulfate) 324 Mg Tablet. 324 MG PO DAILY Multivits-Min/FA/Lycopene/Lut (Centrum Silver Tablet) 1 Each Tablet 1 EACH PO DAILY General Time Seen by MD: 10:10 Chief Complaint Diarrhea moderate, Vomiting mild Hx Obtained From: Patient Arrived By: Walk-in Sudden in Onset?: No Onset Occurred: 1 week ago Symptom Duration: Since onset Quality: Painful Severity: Current: Severe Severity: Maximum: Severe Recent Healthcare: No recent doctor visit, No recent hospitalization Similar Sx Previous: No Past Medical History Past Medical History Notes: Dr. Wong Hendrix is PCP Does not want morphine, but reports that narcotics are fine. Cannot take Aspirin, Ibuprofen, or Tylenol. Aspirin causes rectum bleeding. Ibuprofen and Tylenol cause nausea and possible vomit. Past Medical History Hx of E. coli in her kidneys Hx of alcoholic Pancreatitis Reports: Cancer Past Surgical History Surgical removal of breast cancer Reports: Cholecystectomy Family History Son has cancer. Smoking History Never Smoker Social History Alcohol Use: In recovery Ambulatory Status Independent Review of Systems Constitutional: Reports: Chills GI: Reports: Abdominal pain, Bloody/tarry stool, Diarrhea, Nausea, Vomiting Complete sys rev & neg: except as marked. Physical Exam Vital Signs Vital Signs (First) Date Time Temp Pulse Resp B/P Pulse Ox O2 Delivery O2 Flow Rate FiO2 02/15/17 09:56 36.8 94 20 216/123 99 Room Air Initial VS: Reviewed Head / Eyes: Atraumatic, Normocephalic, PERRL ENT: Mucous membranes moist, Conjunctiva normal, No scleral icterus Extremities: Vascular intact, Neuro intact, No swelling, No tenderness Skin: Warm, Dry, No cyanosis Neurologic: Alert, Oriented, Nonfocal Psychiatric: Mood/affect normal, Behavior normal, Normal thought content General/Constitutional: Awake, Alert Appearance / Presentation: Positive: Pale Tremulous Respiratory / Chest: Breath sounds NL, Breath sounds = bilat, No respiratory distress, No rales, No rhonchi, No wheezing, No stridor Cardiovascular: Heart rate NL, Regular rhythm, Heart sounds NL, Peripheral circulation NL Abdomen: No guarding, No rebound Tenderness/Guarding/Rebound: Positive: Tender LUQ... (Mild) Rectum / Perineum: Atraumatic, No gross blood Guaiac negative, brown stool Interpretation & Diagnostics Lab Results Interpretation Result Diagram: 02/15/17 1035 02/15/17 1035 Test 02/15/17 10:30 02/15/17 10:35 02/15/17 12:15 Urine Color Yellow (YELLOW) Urine Appearance Hazy (CLEAR,HAZY) Urine pH 7.0 (5.0-8.0) Urine Specific [place] 1.015 (1.003-1.035) Urine Protein 30mg/dL (NEG,TRACE) Urine Glucose (UA) Negativemg/dL (NEGATIVE) Urine Ketones 40mg/dL (NEGATIVE) Urine Occult Blood Small (NEGATIVE) Urine Nitrite Negative (NEGATIVE) Urine Bilirubin Negative (NEGATIVE) Urine Urobilinogen Normalmg/dL (NORMAL) Urine Leukocyte Esterase Negative (NEGATIVE) Urine RBC 3-10/hpf (0-2) Urine WBC 0-5/hpf (0-5) Urine Epithelial Cells Occasional/hpf (NONE-MOD) Urine Crystals None seen (NONE SEEN) Urine Bacteria None/hpf (NONE-FEW) Urine Hyaline Casts None/lpf (NONE) Urine Granular Casts None seen (NONE SEEN) Urine Waxy Casts None seen (NONE SEEN) Urine Red Blood Cell Casts None seen (NONE SEEN) Urine White Blood Cell Casts None seen (NONE SEEN) Urine Mucus None seen (None Seen) Urine Trichomonas None seen (NONE SEEN) Urine Yeast None (NONE SEEN) Urinalysis Comment None Urine Culture Reflexed Not indicated White Blood Count 4.6th/mm3 (3.8-10.1) Red Blood Count 4.36mil/mm3 (3.90-5.20) Hemoglobin 13.4g/dL (12.0-15.6) Hematocrit 39.8% (35.0-46.0) Mean Corpuscular Volume 91.3fL (81-100) Mean Corpuscular Hemoglobin 30.7pg (27.0-35.0) Mean Corpuscular Hemoglobin Concent 33.7% (32.0-37.0) Red Cell Distribution Width 14.7% (12.3-15.4) Platelet Count 213bil/L (150-400) Neutrophils (%) (Auto) 71.7% (40-74) Lymphocytes (%) (Auto) 17.2% (14-46) Monocytes (%) (Auto) 10.3% (4-12) Eosinophils (%) (Auto) 0% (0-5) Basophils (%) (Auto) 0.4% (0-3) Prothrombin Time 9.5sec (8.1-12.5) Prothromb Time International Ratio 0.89ratio Sodium Level 137mEq/L (134-144) Potassium Level 3.4mEq/L (3.5-5.2) Chloride Level 97mEq/L (97-108) Carbon Dioxide Level 21mmol/L (18-29) Blood Urea Nitrogen 7mg/dL (8-27) Creatinine 0.74mg/dL (0.57-1.00) Estimat Glomerular Filtration Rate 113mL/min (>59) Glucose Level 95mg/dL (60-99) Lactic Acid Level 1.0mmol/L (0.4-2.0) Calcium Level 9.3mg/dL (8.5-10.1) Magnesium Level 1.8mg/dL (1.6-2.6) Total Bilirubin 0.8mg/dL (0.0-1.2) Aspartate Amino Transf (AST/SGOT) 35U/L (0-50) Alanine Aminotransferase (ALT/SGPT) 17U/L (0-32) Alkaline Phosphatase 83U/L (25-165) Total Protein 8.0g/dL (6.4-8.4) Albumin 4.4g/dL (3.4-5.0) Lipase 132U/L (13-60) Troponin T < 0.010ug/L (0.0-0.011) Alcohols < 10mg/dL (0-10) ECG Interpretation Time: 12:34 Normal ECG Interpretation: Normal ECG w/ rate of... (79), Normal sinus rhythm CT Abd / Pelvis Interpretation IMPRESSION: 1. No definitive CT findings to explain left upper quadrant pain and vomiting. 2. Cholecystectomy. Common bile duct is dilated measuring 9.2 mm. Please correlate with serum bilirubin. 3. No renal stone hydronephrosis. 4. Suboptimal examination due to lack of IV contrast. 5. Chronic compression deformity of L5. Dictated by: Rod Nelson M.D. on 02/15/2017 at 14:23 Study type: Abdom CT oral contrast Interpretation / Wet Read by: Interpret - Radiologist Re-Eval/Medical Decision Med Decision/Clinical Course Persistent hypertension vomiting. As well as left upper quadrant pain. Suspect the patient is going through alcohol withdrawal. Patient received 3 different types of parenteral blood pressure occasions. She also received promethazine and Zofran for nausea and vomiting. Rectal was guaiac negative. Valium given for withdrawal symptoms. Patient will be admitted on a nicardipine drip. Re-Evaluation/Progress #1: Time of Eval: 11:52 Patient Status: Condition improved Re-Evaluation/Progress Note: Performed physical exam. Discussed lab results. Re-Evaluation/Progress #2: Time of Eval: 12:04 Patient Status: Condition improved Re-Evaluation/Progress Note: Pt feels a bit better. Discussed plan for CT scan. Re-Evaluation/Progress #3: Time of Eval: 13:25 Patient Status: Condition improved Re-Evaluation/Progress Note: Pt reports a reaction to IV contrast in the past, so discussed plan for oral contrast. Re-Evaluation/Progress #4: Time of Eval: 14:18 Patient Status: Condition improved Re-Evaluation/Progress Note: Pt drinking oral contrast. BP 191/108. Re-Evaluation/Progress #5: Time of Eval: 15:39 Patient Status: Condition worsened Re-Evaluation/Progress Note: Pt vomiting. Discussed CT results and plan for admission. Pt understands and agrees. Consultation : Referral / Consult Name: Eliu Bill MD Consulted With: Hospitalist Call Returned at: 15:57 [employer]: Will see patient, Agrees with plan, Accepts admit Counseled Regarding: Diagnosis, Lab results, Need for admission Discharge & Departure Primary Impression: Persistent vomiting Additional Impressions: Hypertensive urgency Alcohol withdrawal Disposition: ADMITTED TO HOSPITAL Discharge Condition All VS Reviewed: Yes Condition: Improved Referrals: [facility] (PCP) Crit Care Except Billable Proc Time Spent: 75-104 minutes Services Performed: Patient management by me, Time spent at bedside, Reviewing test results, Reviewing imaging, Discussing patient care, Documentation in record, Time with fam/surrogate Critical Care Notes: SEE MDM Scribe Attestation Portions of this note were transcribed by Luisa Eric. I, Dr. Pulido personally performed the history, physical exam and medical decision-making; I reviewed and confirmed the accuracy of the information in the transcribed note. Signed by: Venecia Mccullough, 02/15/2017. copies to: [facility] Arsenio Pulido DO Feb 15, 2017 10:10 LUISA ERIC Feb 15, 2017 10:14
[2017-02-15] MEDS ORDERED: 0.9% Sodium Chloride 1,000 ML IV ONE ×2 (10:36→16:50)
[2017-02-15] MEDS ORDERED: Pantoprazole 4 mg/mL 10 mL Inj IVPUSH ONE (10:40)
[2017-02-15] MEDS: HYDROmorphone 0.5 mg/0.5 mL iSecure Syringe IVPUSH PRN ×5 (10:52→21:31)
[2017-02-15] MEDS: Ondansetron 2 mg/mL 2 mL Inj IVPUSH PRN ×3 (10:52→15:03)
[2017-02-15 10:53] LABS: BASOPHILS % (AUTO) 0.4 % (0-3); EOSINOPHILS % (AUTO) 0 % (0-5); MONOCYTES % (AUTO) 10.3 % (4-12); Mean Corpuscular Hemoglobin 30.7 pg (27.0-35.0); Mean Corpuscular Volume 91.3 fL (81-100); NEUTROPHILS % (AUTO) 71.7 % (40-74); Platelet Count 213 bil/L (150-400)
[2017-02-15 11:14] LABS: INR 0.89 ratio
[2017-02-15 11:22] LABS: Magnesium 1.8 mg/dL (1.6-2.6)
[2017-02-15 11:33] LABS: APPEARANCE,URINE HAZY (CLEAR,HAZY); COLOR,URINE YELLOW (YELLOW); OCCULT BLOOD,URINE SMALL (NEGATIVE); UROBILINOGEN,URINE NORMAL (NORMAL)
[2017-02-15] MEDS ORDERED: Labetalol 5 mg/mL 4 mL Inj IVPUSH ONE (12:05)
[2017-02-15] MEDS ORDERED: Enalaprilat Inj 1.25 MG in Dextrose 5% 50 ML IV ONE (12:55)
[2017-02-15] MEDS ORDERED: NiCARdipine Inj 25 MG in Dextrose 5% 240 ML IV SCH (15:00)
[2017-02-15] MEDS ORDERED: Promethazine Inj 25 MG in Dextrose 5%-Pha MIX 50 ML IV ONE (15:20)
--- NOTE | 2017-02-15 15:34 | DRSVH ---
PROCEDURE: CT ABDOMEN AND PELVIS WITHOUT CONTRAST ([id number]) INDICATIONS: 66 year-old woman with left upper quadrant pain, vomiting, left rib pain, TECHNIQUE: After the administration of oral contrast, 5 mm thick sections acquired from the diaphragms to the sy mphysis. 5 mm coronal and sagittal reformats were performed. For radiation dose reduction, the foll owing was used: automated exposure control, adjustment of mA and/or kV according to patient size. COMPARISON: [facility], CT, CT ABD PELVIS WO CON, 11/03/2016, 12:00. FINDINGS: Image quality: Excellent. ABDOMEN: Lung bases: Mild right middle lobe and lingular scarring. Lung bases are otherwise clear. Heart siz e is normal. Solid organs: Liver and spleen are normal in size. Gallbladder is surgically absent. The common bi le duct is dilated measuring a millimeter. Pancreas is normal in size. No adrenal nodules. Both kid neys are normal in size, without hydronephrosis or nephrolithiasis. Peritoneum and bowel: Bowel loops demonstrate normal wall thickness and caliber. No free fluid or a ir. Nodes and vessels: No retroperitoneal or mesenteric adenopathy by size criteria. Aorta and inferior vena cava are normal in size. Miscellaneous: No ventral hernias. PELVIS: Genitourinary: Bladder wall thickness is normal. Miscellaneous: No inguinal hernias or adenopathy. Bones: No suspicious bony lesions. There is chronic moderate compression deformity of L5, unchanged. IMPRESSION: 1. No definitive CT findings to explain left upper quadrant pain and vomiting. 2. Cholecystectomy. Common bile duct is dilated measuring 9.2 mm. Please correlate with serum bilirub in. 3. No renal stone hydronephrosis. 4. Suboptimal examination due to lack of IV contrast. 5. Chronic compression deformity of L5. Dictated by: Rod Nelson M.D. on 02/15/2017 at 14:23 Approved by: Rod Nelson M.D. on 02/15/2017 at 14:32
[2017-02-15] MEDS: 0.9% Sodium Chloride 1,000 ML IV SCH (16:36)
[2017-02-15] MEDS ORDERED: Ondansetron 2 mg/mL 2 mL Inj IVPUSH PRN (16:40)
[2017-02-15] MEDS ORDERED: Alum-Mag Hydrox-Simeth 30 mL Suspension PO PRN (16:40)
[2017-02-15] MEDS ORDERED: THIAMINE IV ONE ×5 (16:40)
[2017-02-15] MEDS ORDERED: [UNRECOGNIZED DRUG - OTHER] IV ONE ×5 (16:40)
[2017-02-15] MEDS ORDERED: MAGNESIUM SULFATE IV ONE ×5 (16:40)
[2017-02-15] MEDS ORDERED: FOLIC ACID IV ONE ×5 (16:40)
--- NOTE | 2017-02-15 18:57 | NUR ---
Admit/CIWA Pt. was admitted to room 2006 PCC from the ER and arrived on the unit at ~1715. Pt. arrived in no apparent distress and was able to ambulate to her bed. Pts. gait was unsteady and needed 1pa. Pt. CIWA score was an 8 and no Valium was given. Pt. is A&O to self and day but had the wrong year, stating its 2016. and thought she was in a "shuttle" area. Will continue to monitor.
[2017-02-15] MEDS ORDERED: Potassium Chloride Inj 20 MEQ in Dextrose 5% 250 ML IV ONE (20:20)
--- NOTE | 2017-02-15 20:23 | PCM.HPMED ---
Subjective Date of Service Feb 15, 2017 Primary Provider: Admitting Physician: Eliu Bill MD Primary Care Physician: Wiley Restrepo Attending Physician: Eliu Bill MD Chief Complaint: Abdominal pain History of Present Illness: Patient is uncooperative and able to give a history. History taken from previous records 66-year-old female with a history of alcoholic pancreatitis and pyelonephritis due to Escherichia coli present to the emergency department this afternoon complaining of nausea and diarrhea for 1 week. The patient has a history of alcohol abuse, with reports of 6 beers per day. Patient stated to the emergency room physician that she is also been vomiting that started today, dark bloody stools with clots that started this morning, and shaking chills. The patient denies fever. She also states that she has rib pain, either due to a "big Bear hug" or possibly due to vomiting. She also states that this pain is worse when she had pyelonephritis. She also reports decreasing alcohol intake from baseline. When asked when her last drink was she was unable to give an answer. In the emergency department CT of the abdomen/pelvis was taken and noted a 9.2 mm stone in the common bile duct. Labs revealed a lipase of 150 but no elevation of LFTs. Patient also had mild hypokalemia and all other labs were essentially normal. The toxicology report did not identify alcohol. TSH was not ordered. Review of Systems: Complete review of systems performed; pertinent positives and negatives per history of present illness, all other systems reviewed and are negative Allergies Coded Allergies: clindamycin (Verified Allergy, Unknown, 11/11/16) prednisone (Verified Allergy, Unknown, 11/11/16) cephalexin (Verified Adverse Reaction, Severe, jaw stiffness, body aches, nausea, dizziness, 11/11/16) took together with tramadol-unsure wich one of these two has caused a reaction tramadol (Verified Adverse Reaction, Severe, jaw stiffness, body aches, nausea, dizziness, 11/11/16) took together with cephalexin-unsure which one of these two medications caused a reaction acetaminophen (Verified Adverse Reaction, Intermediate, Nausea, "it does nothing", 11/11/16) aspirin (Verified Adverse Reaction, Intermediate, 11/11/16) ibuprofen (Verified Adverse Reaction, Intermediate, Nausea, "It doesn't work", 11/11/16) permethrin (Verified Adverse Reaction, Intermediate, Nausea, 11/11/16) codeine (Verified Adverse Reaction, Unknown, Nausea,Vomiting, flushed, ) morphine (Verified Adverse Reaction, Unknown, "It didn't work at all", ) Home Medications Calcium Carbonate/Vitamin D3 (Calcium + Vitamin D Tablet) 1 Each Tablet 1 EACH PO DAILY Ferrous Sulfate (Ferrous Sulfate) 324 Mg Tablet.dr 324 MG PO DAILY Multivits-Min/FA/Lycopene/Lut (Centrum Silver Tablet) 1 Each Tablet 1 EACH PO DAILY PMH Hx of E. coli in her kidneys Hx of alcoholic Pancreatitis Reports: Cancer Surgical History Surgical removal of breast cancer Reports: Cholecystectomy Family History Son has cancer. Social History Hx Alcohol Use: Yes Alcoholic Drinks Per Day: sometimes 6/pack/day; depends if patient is traveling or in pain Hx Substance Use: No Hx Tobacco Use: No Smoking Status: Never Smoker Exam Vital Signs Vital Sign - Last Date Time Temp Pulse Resp B/P Pulse Ox O2 Delivery O2 Flow Rate FiO2 02/15/17 17:16 36.3 76 18 160/118 98 Room Air Exam General: Somnolent, noncooperative, unable to follow directions HEENT: membranes moist; rest of exam unable to perform due to patient condition Lymph: No lymphadenopathy Cardio: Regular rate and rhythm no murmurs rubs or gallops Respiratory: CTA bilaterally, no wheezes, no crackles Abdomen: Soft, positive bowel sounds, nontender, nondistended Extremities: No edema Psych: Unable to communicate effectively due to somnolence Neuro: Unable to perform due to patient condition Skin: No rash Lab and Diagnostics Result Diagram: 02/15/17 1035 02/15/17 1035 X-Rays, CTs and MRIs CT abdomen and pelvis 1. No definitive CT findings to explain left upper quadrant pain and vomiting. 2. Cholecystectomy. Common bile duct is dilated measuring 9.2 mm. Please correlate with serum bilirubin 3. No renal stone hydronephrosis. 4. Suboptimal examination due to lack of IV contrast. 5. Chronic compression deformity of L5 Dictated by: Rod Nelson M.D. on 02/15/2017 at 14:23 Assessment & Plan 66-year-old female with a history of alcohol abuse, alcoholic pancreatitis, and history of pyelonephritis presents with ongoing abdominal pain with associated nausea and vomiting, with associated symptoms of hematochezia versus melena. Abdominal pain secondary to likely alcohol withdrawal due to alcohol dependence ; present admission; ongoing -Abdominal pain with nausea and vomiting in the setting of alcoholic who supposedly quit drinking abruptly -Toxicology did not identify alcohol -Mild-moderate elevation in her lipase was identified 9.2 mm stone in the common bile duct -LFTs and bilirubin normal at this point -Urine Ethyl glucuronide ordered but will take a couple days to get back to check for recent alcohol use -Orders placed for close observation to start CIWA -We will start with 130 mg of phenobarbital -In emergency department the patient was given diazepam which is likely the reason she was unable to give a history on admit -CBC/CMP in a.m.; will assess for possible developing cholangitis -Patient does not meet criteria for pancreatitis as her lipase is not high enough and there is no imaging consistent with pancreatitis -If patient decompensates recommend ordering contrast CT of the abdomen, or MRCP to assess for dilation of bile duct and the presence of retained stone Possible GI bleed; present on admission; ongoing -Patient reports recent diarrhea with blood clots and possible hematochezia -Patient has a history of alcohol abuse but unknown varices or ulcer -H&H is stable and normal -CBC in a.m. -Hemoccult -Famotidine 20mg BID Hypokalemia; present on admission; ongoing -Likely due to recent vomiting and diarrhea -Replaced with 20 mEq IV -Recheck in a.m. Disposition: Patient is being admitted to inpatient status with expected length of stay greater than two midnights due to to severity of presentation, duration of treatment, and risks of adverse events disposition Full code polyp Pain Evaluation: Adequate Pain Control VTE Prophylaxis: Sub-Q Heparin (Unfractionated) Resuscitation Status: CPR: Attempt Resuscitation Attending Statement The patient was seen and examined together with Dr. Anthony on 02/15/2017 and I agree with the history, exam and plan as outlined in the note above. . Amilcar Anthony DO Feb 15, 2017 20:23 Eliu Bill MD Feb 16, 2017 19:43
[2017-02-15] MEDS: Famotidine Inj 20 MG in IV Premix 1 EACH IV SCH (22:20)
[2017-02-16] VITALS (7 sets, daily range): BP systolic 134–186; BP diastolic 85–118; PULSE 71–104; RESP 17–23; O2SAT 97–98
[2017-02-16] MEDS: Heparin 5,000 Unit/mL Inj SUBQ SCH ×3 (00:32→16:31)
[2017-02-16] MEDS: 0.9% Sodium Chloride 1,000 ML IV SCH ×3 (03:15→21:06)
[2017-02-16] MEDS: HYDROmorphone 0.5 mg/0.5 mL iSecure Syringe IVPUSH PRN ×3 (05:31→14:07)
[2017-02-16 06:11] LABS: BASOPHILS % (AUTO) 0.6 % (0-3); EOSINOPHILS % (AUTO) 2.6 % (0-5); MONOCYTES % (AUTO) 9.5 % (4-12); Mean Corpuscular Hemoglobin 30.6 pg (27.0-35.0); Mean Corpuscular Volume 94.4 fL (81-100); NEUTROPHILS % (AUTO) 64.8 % (40-74); Platelet Count 190 bil/L (150-400)
[2017-02-16 06:28] LABS: INR 0.89 ratio
--- NOTE | 2017-02-16 08:00 | NUR ---
Mentation/Pain Alert and oriented to self, confusion r/t care, needs, and place. CIWA score of 6. Displayed moderate level of anxiety and restlessness. Intermittent periods of forgetfulness. Pt. up to BR independently, educated to use call light for safety. Provided BSC. Hypertension noted, paged @ [phone], order received for HCTZ and Lisinopril. Reports intermittent pain 7-03/26, L Rib region. Tele: SR 60's. Report given to oncoming RN
[2017-02-16] MEDS: Multivit-Miner-Folic Acid-Iron Tablet PO SCH (09:30)
[2017-02-16] MEDS: Famotidine Inj 20 MG in IV Premix 1 EACH IV SCH ×2 (09:33→21:04)
--- NOTE | 2017-02-16 10:47 | NUR ---
Pain/anxiety/activity Left upper abdomen vs left side rib pain 03/26- patient complained of gradual pain increase during the morning. Medicated with dialuded 0.5mg IV stated good pain relive -08/26. CIWA - patient appeared to be mildly anxious and tremorus- symptoms improved when pain level decreased- continue assessment. Patient able to use call light appropriately to let her needs to be known. Ambulated in room around her bed and to the sink to wash her hands- tolerated the activity well.
[2017-02-16] MEDS ORDERED: chlordiazePOXIDE 25 mg Capsule PO PRN (13:35)
--- NOTE | 2017-02-16 15:46 | DRSVH ---
PROCEDURE: X-RAY BILATERAL RIBS, THREE VIEWS ([id number]) INDICATIONS: Left rib pain, looking for malignancy TECHNIQUE: 3 views of the left and right ribs were acquired. COMPARISON: [facility], CR, CHEST 2 VIEW, 07/05/2016, 15:18. [facility], CR, XR CH EST 2VW, 02/16/2017, 13:33. FINDINGS: Surgical changes and devices: Right breast and axillary surgical clips as well as likely cholecystect yonny. Bones and chest wall: No fractures or dislocations. No suspicious bony lesions. Overlying soft tis sues appear unremarkable. Lungs and pleura: Loss of definition of the medial aspect of the right hemidiaphragm. Possible pneumo kusum.. No pleural effusions or pneumothorax are visible. IMPRESSION: 1. Question of minimal infiltrate obscuring a portion of the medial aspect of the left hemidiaphragm on these films. Small pneumonia is suspected. Otherwise no abnormalities seen. If malignancy is suspe cted, nuclear medicine bone scan could be performed or alternatively breast MRI. Dictated by: Gabe Rsoenthal [facility] Interpreted: Ariel Peralta MD on 02/16/2017 at 14:15 Approved by: Ariel Peralta M.D. on 02/16/2017 at 15:43
--- NOTE | 2017-02-16 15:46 | DRSVH ---
PROCEDURE: X-RAY CHEST, TWO VIEWS ([id number]) INDICATIONS: Left rib pain, looking for malignancy TECHNIQUE: 2 views of the chest were acquired. COMPARISON: [facility], CR, XR CHEST 1VW (PORTABLE), 11/03/2016, 22:57. [facility], CR, CHEST 2 VIEW, 07/05/2016, 15:18. FINDINGS: Surgical changes and devices: Right breast and axillary surgical clips redemonstrated. Lungs and pleura: No pleural effusions or pneumothorax. Lungs are clear except for probable small p neumonia retrocardiac left base obscuring a portion of the left hemidiaphragm. Mediastinum: Mediastinal contours are normal. Heart size is normal. Bones and chest wall: No suspicious bony abnormalities. Soft tissues appear unremarkable. IMPRESSION: Probable left lower lobe small pneumonia. Dictated by: Gabe Rosenthal [facility] Interpreted: Ariel Peralta MD on 02/16/2017 at 14:25 Approved by: Ariel Peralta M.D. on 02/16/2017 at 15:44
--- NOTE | 2017-02-16 17:16 | PCM.PNMED ---
Subjective Date of Service Feb 16, 2017 Subjective 66-year-old female with a history of alcohol abuse, alcoholic pancreatitis, and history of pyelonephritis presents with ongoing abdominal pain with associated nausea and vomiting, with associated symptoms of hematochezia versus melena. Hospital day 1. Nurse reports that patient experienced nausea and vomiting overnight after returning from CT. Patient had two episodes of vomiting during the night. Patient seen and examined in the room. Patient c/o Left rib pain that increases with movement. Denies any CP, SOB, ABD pain, nausea, vomiting, or diarrhea. Further questioning revealed that patient was recently in [place] tending to one of her sons who was recently diagnosed with cancer, and is undergoing treatment. Patient has a history with alcohol abuse and has been through recovery programs with some success "years ago". Patient states that she has recently started drinking again, roughly 4-6 beers a day. When asked about withdrawal sxs in the past, she states that she has never experienced a seizure from alcohol withdrawal. Upon further questioning regarding patient's alcohol history and assessment of alcohol withdrawal symptoms, patient became irate and began changing into her street clothes. She then began to flee the room, and a code brock was called. Security calmly escorted patient back to her room, and chemical sedation was initiated. Patient's son, Nando, was contacted by telephone to update on patient's status and behavior. Son stated, "Please do whatever you need to ensure her safety." Patient sedated, pulse ox, and telemetry placed on patient. Exam Vital Signs Vital Sign - Last Date Time Temp Pulse Resp B/P Pulse Ox O2 Delivery O2 Flow Rate FiO2 02/16/17 15:25 36.8 88 17 146/98 98 Nasal Cannula 2.00 Intake and Output 02/15/17 02/15/17 02/16/17 Cumulative From/Thru 15:00 23:00 07:00 02/15/17 09:56 - 02/16/17 05:33 Intake Total 1050 ml 50 ml 1275 ml 2375 ml Output Total 2200 ml 2200 ml Balance 1050 ml 50 ml -925 ml 175 ml Intake Oral 400 ml 400 ml IV Total 1050 ml 50 ml 875 ml 1975 ml Output Urine Total 2200 ml 2200 ml # Voids 1 1 # Bowel Movements 0 0 Exam Constitutional: Alert, awake and oriented. Agitated. Frail. Uncooperative. Head: normocephalic and atraumatic Eyes: EOMI, pink conjunctiva Heart: regular rate and rhythm. No peripheral edema Lungs: clear to auscultation. No wheeze, rales, or rhonchi. Tender to palpation on the Left 9th anterolateral rib. ABD: Mildly tender to palpation diffusely. Soft. Bowel sounds present throughout. No hepatosplenomegaly. Musculoskeletal: moves all four extremities appropriately Neuro: CN II-XII intact. No astixeris. Negative finger to nose. No focal deficits. Psych: agitated. uncooperative. Not making rational decisions. IVs and Medications IV Fluids 2L NS given in the last 24 hours. Medications Reviewed: Medications were reviewed in detail Lab and Diagnostics Item Value Date Time Red Blood Count 4.09 mil/mm3 02/16/17 0550 Mean Corpuscular Volume 94.4 fL 02/16/17 0550 Mean Corpuscular Hemoglobin 30.6 pg 02/16/17 0550 Mean Corpuscular Hemoglobin Concent 32.4 % 02/16/17 0550 Red Cell Distribution Width 14.5 % 02/16/17 0550 Neutrophils (%) (Auto) 64.8 % 02/16/17 0550 Lymphocytes (%) (Auto) 22.1 % 02/16/17 0550 Monocytes (%) (Auto) 9.5 % 02/16/17 0550 Eosinophils (%) (Auto) 2.6 % 02/16/17 0550 Basophils (%) (Auto) 0.6 % 02/16/17 0550 Estimat Glomerular Filtration Rate 107 mL/min 02/16/17 0550 Lactic Acid Level 0.6 mmol/L 02/16/17 0550 Calcium Level 8.5 mg/dL 02/16/17 0550 Total Bilirubin 0.9 mg/dL 02/16/17 0550 Aspartate Amino Transf (AST/SGOT) 28 U/L 02/16/17 0550 Alanine Aminotransferase (ALT/SGPT) 14 U/L 02/16/17 0550 Alkaline Phosphatase 71 U/L 02/16/17 0550 Total Protein 7.0 g/dL 02/16/17 0550 Albumin 3.9 g/dL 02/16/17 0550 Lipase 215 U/L H 02/16/17 0550 Prothrombin Time 9.5 sec 02/16/17 0550 Prothromb Time International Ratio 0.89 ratio 02/16/17 0550 Result Diagram: 02/16/17 0550 02/16/17 0550 X-Rays, CTs and MRIs CT abdomen and pelvis 1. No definitive CT findings to explain left upper quadrant pain and vomiting. 2. Cholecystectomy. Common bile duct is dilated measuring 9.2 mm. Please correlate with serum bilirubin 3. No renal stone hydronephrosis. 4. Suboptimal examination due to lack of IV contrast. 5. Chronic compression deformity of L5 Dictated by: Rod Nelson M.D. on 02/15/2017 at 14:23 PROCEDURE: X-RAY BILATERAL RIBS, THREE VIEWS IMPRESSION: 1. Question of minimal infiltrate obscuring a portion of the medial aspect of the left hemidiaphragm on these films. Small pneumonia is suspected. Otherwise no abnormalities seen. If malignancy is suspected, nuclear medicine bone scan could be performed or alternatively breast MRI. Dictated by: Gabe TEMPLETON Interpreted: Ariel Peralta MD on 02/16/2017 at 14:15 PROCEDURE: X-RAY CHEST, TWO VIEWS IMPRESSION: Probable left lower lobe small pneumonia. Dictated by: Gabe TEMPLETON Interpreted: Ariel Peralta MD on 02/16/2017 at 14:25 Assessment & Plan 66-year-old female with a history of alcohol abuse, alcoholic pancreatitis, and history of pyelonephritis presents with ongoing abdominal pain with associated nausea and vomiting, with associated symptoms of hematochezia versus melena. Hospital Day 1. Abdominal pain secondary to likely alcohol withdrawal due to alcohol dependence ; present admission; ongoing -Abdominal pain with nausea and vomiting in the setting of alcoholic who supposedly quit drinking abruptly -Toxicology did not identify alcohol -Mild-moderate elevation in her lipase was identified 9.2 mm stone in the common bile duct. Increase in serum lipase, likely secondary to profuse vomiting, will trend. -LFTs and bilirubin normal at this point -Urine Ethyl glucuronide ordered but will take a couple days to get back to check for recent alcohol use -Orders placed for close observation to start CIWA -Continue with 130 mg of phenobarbital -If patient decompensates recommend ordering contrast CT of the abdomen, or MRCP to assess for dilation of bile duct and the presence of retained stone -Patient became increasingly agitated and uncooperative, attempted to leave AMA but was detained due to medical risk for further withdrawals and seizures without proper care and a likely danger to herself. Son gave permission to continue treatment as he was acting as medical decision maker over the phone. Possible GI bleed; present on admission; ongoing - Given patient's history with alcohol abuse, must consider esophageal varacies , will wait to consult GI once withdrawal symptoms under more control. -H&H is stable and normal -CBC in a.m. -Hemoccult -Famotidine 20mg BID Hypokalemia; present on admission; ongoing -Likely due to recent vomiting and diarrhea -Replaced with 20 mEq IV -Recheck in a.m. Disposition: Given patient's alcohol dependence and risk for withdrawal seizure , patient is being medically detained for continued treatment. Given patient's current mental and physical condition in these withdrawals, the length of stay is uncertain at this time. Full code VTE Prophylaxis: Sub-Q Heparin (Unfractionated) Resuscitation Status: CPR: Attempt Resuscitation Attending Statement The patient was seen and examined together with Dr. Pillai on 02/16/2017 and I agree with the history, exam and plan as outlined in the note above. . Alfred Pillai DO Feb 16, 2017 17:16 Eliu Bill MD Feb 16, 2017 19:45
--- NOTE | 2017-02-16 17:17 | NUR ---
Social Work: Brief Note Pt is a 66 y/o female with hx of ETOH use. GEAR SHAVER SET UP OPERATOR acknowledges CD orders for pt. Pt discussed in multidisciplinary rounds. MD states pt likely to d/c in about 2 more days. GEAR SHAVER SET UP OPERATOR attempted to meet with pt to complete assessment and CD assessment, pt's hospitalist was meeting with them at that time. GEAR SHAVER SET UP OPERATOR will follow up with pt at a later time. TALI [place]
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
[2017-02-17] VITALS (7 sets, daily range): BP systolic 155–176; BP diastolic 92–117; PULSE 84–104; RESP 16–18; O2SAT 96–99
[2017-02-17] MEDS: Heparin 5,000 Unit/mL Inj SUBQ SCH ×3 (00:30→16:30)
[2017-02-17] MEDS ORDERED: Haloperidol 5 mg/mL Inj IM PRN (01:25)
[2017-02-17 02:43] LABS: BASOPHILS % (AUTO) 0.4 % (0-3); EOSINOPHILS % (AUTO) 2.3 % (0-5); Mean Corpuscular Hemoglobin 30.6 pg (27.0-35.0); Mean Corpuscular Volume 93.7 fL (81-100); NEUTROPHILS % (AUTO) 68.2 % (40-74); Platelet Count 197 bil/L (150-400)
--- NOTE | 2017-02-17 05:56 | NUR ---
Mentation Pt. displayed increase levels of anxiety, confusion, and discontent with hospitalization. Disorientation to place and time, up oob to hallway, requests to d/c home. Total CIWA score 19. MD notified (Dr. Anthony), spoke with pt and pt. agreed to remain in hospital until AM 8/4. Refused medications and vital monitoring - IV access and Tele d/c (per MD order). Pt. behavior escalated and requested to leave AMA, charge nurse and security at bedside. NOC MD present, son notified and presented to bedside. Physician consulted with pt. and son, pt. agreed to continue care and will readdress status with morning physician. Returned to room and rested with eyes closed. Intermittent hypertension continued, otherwise VSS. Tele SR 90's. Report given to on coming RN.
[2017-02-17] MEDS: Multivit-Miner-Folic Acid-Iron Tablet PO SCH (10:47)
[2017-02-17] MEDS: 0.9% Sodium Chloride 1,000 ML IV SCH (11:16)
[2017-02-17] MEDS: Famotidine Inj 20 MG in IV Premix 1 EACH IV SCH ×2 (11:16→20:27)
--- NOTE | 2017-02-17 13:27 | DRSVH ---
PROCEDURE: MRI ABDOMEN WITHOUT CONTRAST ([id number]) INDICATIONS: Dilated common bile duct TECHNIQUE: Coronal HASTE through the abdomen, axial 2-D FLASH in- and [id number], and breath-hold T2 FSE with fat saturation through the biliary system and pancreas. Oblique coronal and axial thin-slice HASTE, radial thick-slab HASTE centered on the extrahepatic bile ducts. Intravenous secretin: Not requested. COMPARISON: [facility], CT, CT ABD PELVIS WO CON, 02/15/2017, 15:10. FINDINGS: Image quality: Excellent. Pancreas and biliary system: Intra- and extra-hepatic biliary ducts are non dilated. Pancreas is no rmal in morphology, without adjacent soft tissue edema. Pancreatic duct is normal in caliber, withou t developmental anomalies. Gallbladder has been previously resected. The common duct measures 9 mm as was previously the case also during CT scanning 2 days ago. No common duct stone or mass is found , no common bile duct stricture is seen. Other solid organs: Liver and spleen are normal in size. No adrenal nodules. Both kidneys are norm al in size, without hydronephrosis. Nodes and vessels: No retroperitoneal or mesenteric adenopathy by size criteria. Aorta and inferior vena cava are normal in size. Bowel and peritoneum: Unenhanced bowel loops are normal in caliber. No free fluid. Lung bases: No basal pleural effusions. Heart size is normal. Bones and soft tissues: No ventral hernias. Bone marrow is of normal overall signal. IMPRESSION: The patient is status post cholecystectomy, and the caliber of the common duct is mildly prominent but considered within normal limits for age and post-cholecystectomy status. No common terry t stone or mass is suspected. No additional abnormality is seen elsewhere. Dictated by: Jacob Flores M.D. on 02/17/2017 at 13:22 Approved by: Jacob Flores M.D. on 02/17/2017 at 13:26
[2017-02-17] MEDS ORDERED: chlordiazePOXIDE 25 mg Capsule PO PRN (13:30)
[2017-02-17] MEDS ORDERED: PHENobarbital 65 mg/mL Inj IV ONE (15:15)
[2017-02-17] MEDS: Sodium Chloride LOK Flush 10 mL Syringe IVFLUSH SCH (16:30)
[2017-02-17] MEDS ORDERED: PHENobarbital 65 mg/mL Inj IV PRN (16:45)
[2017-02-17] MEDS ORDERED: Labetalol 5 mg/mL 4 mL Inj IVPUSH PRN (17:30)
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
[2017-02-17] MEDS: chlordiazePOXIDE 25 mg Capsule PO SCH ×2 (18:00→23:00)
[2017-02-17] MEDS ORDERED: Potassium Chloride 20 mEq SR Tablet PO ONE (18:50)
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
[2017-02-18] MEDS: Sodium Chloride LOK Flush 10 mL Syringe IVFLUSH SCH ×4 (00:30→19:27)
[2017-02-18] MEDS: 0.9% Sodium Chloride 1,000 ML IV SCH ×2 (01:00→14:05)
[2017-02-18] MEDS: chlordiazePOXIDE 25 mg Capsule PO SCH ×3 (01:00→19:20)
[2017-02-18] MEDS: Heparin 5,000 Unit/mL Inj SUBQ SCH ×3 (01:00→17:06)
[2017-02-18 02:46] VITALS: BP 144/97; PULSE 84; RESP 16; O2SAT 97
[2017-02-18 02:59] LABS: Mean Corpuscular Hemoglobin 31.1 pg (27.0-35.0); Mean Corpuscular Volume 92.9 fL (81-100)
[2017-02-18 05:39] VITALS: PULSE 88
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
[2017-02-18] MEDS ORDERED: Potassium Chloride 20 mEq SR Tablet PO ONE (06:40)
[2017-02-18] MEDS ORDERED: chlordiazePOXIDE 25 mg Capsule PO SCH ×2 (08:30→14:30)
[2017-02-18] MEDS: Multivit-Miner-Folic Acid-Iron Tablet PO SCH (08:35)
[2017-02-18] MEDS: Famotidine Inj 20 MG in IV Premix 1 EACH IV SCH ×2 (08:36→19:19)
[2017-02-18 11:49] VITALS: BP 164/108; PULSE 82; RESP 24; O2SAT 96
--- NOTE | 2017-02-18 12:50 | PCM.PNMED ---
Subjective Date of Service Feb 18, 2017 Subjective 66-year-old female with a history of alcohol abuse, alcoholic pancreatitis, and history of pyelonephritis presents with ongoing abdominal pain with associated nausea and vomiting, with associated symptoms of hematochezia versus melena. Hospital day 3. Nursing reports no acute events overnight. Patient has waxing and waning episodes of agitation. Received 10mg Diazepam @2100 last night. No other acute events. Patient seen and examined. Refuses to speak with me and will not answer my questioning. Exam Vital Signs Vital Sign - Last Date Time Temp Pulse Resp B/P Pulse Ox O2 Delivery O2 Flow Rate FiO2 02/18/17 11:49 36.6 82 24 164/108 96 Room Air 02/16/17 15:25 2.00 Intake and Output 02/17/17 02/17/17 02/18/17 Cumulative From/Thru 15:00 23:00 07:00 02/15/17 09:56 - 02/18/17 06:57 Intake Total 800 ml 1554 ml 6579 ml Output Total 1150 ml 1200 ml 5950 ml Balance -350 ml 354 ml 629 ml Intake Oral 800 ml 400 ml 3450 ml IV Total 1154 ml 3129 ml Output Urine Total 1150 ml 1200 ml 5950 ml # Voids 1 # Bowel Movements 0 Exam Constitutional: Awake but somnolent. Soft restraints in place. In no acute distress. Head: normocephalic and atraumatic Eyes: EOMI. [place] conjunctiva. Heart: Regular rate and rhythm. No peripheral edema. Lungs: Clear to auscultation. No wheeze, rales, or rhonchi. ABD: soft, nontender. bowel sounds present throughout. Musculoskeletal: Soft restraints in place. Moves all four extremities. Neuro: CN II-XII intact. no focal deficits. Psych: Somnolent. Uncooperative. IVs and Medications IV Fluids 1L NS in the last 24 hours. Medications Reviewed: Medications were reviewed in detail Lab and Diagnostics Item Value Date Time Red Blood Count 3.80 mil/mm3 L 02/18/17 0240 Hematocrit 35.3 % 02/18/17 0240 Mean Corpuscular Volume 92.9 fL 02/18/17 0240 Mean Corpuscular Hemoglobin 31.1 pg 02/18/17 0240 Mean Corpuscular Hemoglobin Concent 33.4 % 02/18/17 0240 Red Cell Distribution Width 13.7 % 02/18/17 024 Estimat Glomerular Filtration Rate 103 mL/min 02/18/17 024 Calcium Level 8.6 mg/dL 02/18/17 024 Total Bilirubin 0.5 mg/dL 02/18/17 024 Aspartate Amino Transf (AST/SGOT) 20 U/L 02/18/17 024 Alanine Aminotransferase (ALT/SGPT) 13 U/L 02/18/17 024 Alkaline Phosphatase 71 U/L 02/18/17 024 Total Protein 5.9 g/dL L 02/18/17 024 Albumin 3.5 g/dL 02/18/17 024 Result Diagram: 02/18/17 02402/18/17239 X-Rays, CTs and MRIs CT abdomen and pelvis 1. No definitive CT findings to explain left upper quadrant pain and vomiting. 2. Cholecystectomy. Common bile duct is dilated measuring 9.2 mm. Please correlate with serum bilirubin 3. No renal stone hydronephrosis. 4. Suboptimal examination due to lack of IV contrast. 5. Chronic compression deformity of L5 Dictated by: Rod Nelson M.D. on 02/15/2017 at 14:23 PROCEDURE: X-RAY BILATERAL RIBS, THREE VIEWS IMPRESSION: 1. Question of minimal infiltrate obscuring a portion of the medial aspect of the left hemidiaphragm on these films. Small pneumonia is suspected. Otherwise no abnormalities seen. If malignancy is suspected, nuclear medicine bone scan could be performed or alternatively breast MRI. Dictated by: Gabe TEMPLETON Interpreted: Ariel Peralta MD on 02/16/2017 at 14:15 PROCEDURE: X-RAY CHEST, TWO VIEWS IMPRESSION: Probable left lower lobe small pneumonia. Dictated by: Gabe TEMPLETON Interpreted: Ariel Peralta MD on 02/16/2017 at 14:25 MRI ABDOMEN WITHOUT CONTRAST IMPRESSION: The patient is status post cholecystectomy, and the caliber of the common duct is mildly prominent but considered within normal limits for age and post-cholecystectomy status. No common duct stone or mass is suspected. No additional abnormality is seen elsewhere. Dictated by: Jacob Flores M.D. on 02/17/2017 at 13:22 Assessment & Plan 66-year-old female with a history of alcohol abuse, alcoholic pancreatitis, and history of pyelonephritis presents with ongoing abdominal pain with associated nausea and vomiting, with associated symptoms of hematochezia versus melena. Hospital Day 3. Abdominal pain secondary to likely alcohol withdrawal due to alcohol dependence ; present admission; ongoing -Abdominal pain with nausea and vomiting in the setting of alcoholic who supposedly quit drinking abruptly -Toxicology did not identify alcohol in system at admission. H/o alcohol abuse as well as discussion with patient and son indicates increased alcohol use in the recent past. -Mild-moderate elevation in her lipase was identified 9.2 mm stone in the common bile duct. MRCP negative for stone. -Lipase downtrending -Urine Ethyl glucuronide ordered but will take a couple days to get back to check for recent alcohol use -Orders placed for close observation to start CIWA - 100mg PO Librium TID for treatment of alcohol withdrawal seizures. -10mg Diazepam IV PRN agitation, if patient still agitated, follow with 65mg IV Phenobarbital PRN, if patient still agitated, follow with another dose of IV Phenobarbital - Patient currently in soft restraints for safety. Will continue to monitor with CIWA protocol in place with goal score of under 10. Possible GI bleed; present on admission; ongoing -Given patient's history with alcohol abuse, must consider esophageal varacies, will wait to consult GI once withdrawal symptoms under more control. -H&H is stable and normal -CBC in a.m. -Famotidine 20mg BID Hypokalemia; present on admission; ongoing -Likely due to recent vomiting and diarrhea -Replaced with 20 mEq IV -Recheck in a.m. Disposition: Given patient's alcohol dependence and risk for withdrawal seizure , patient is being medically detained for continued treatment. Given patient's current mental and physical condition in these withdrawals, patient will likely be discharged to home in the next 3-4 days. Full code VTE Prophylaxis: Sub-Q Heparin (Unfractionated) Resuscitation Status: CPR: Attempt Resuscitation Attending Statement The patient was seen and examined together with Dr. Pillai on 02/18/2017 and I agree with the history, exam and plan as outlined in the note above. . Alfred Pillai DO Feb 18, 2017 12:50 Eliu Bill MD Feb 18, 2017 15:48
[2017-02-18 16:19] VITALS: BP 167/117; PULSE 84; RESP 18; O2SAT 98
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
[2017-02-18 19:22] VITALS: BP 150/98; PULSE 79; RESP 19; O2SAT 96
[2017-02-18 23:31] VITALS: BP 131/83; PULSE 71; RESP 18; O2SAT 97
[2017-02-19] VITALS (9 sets, daily range): BP systolic 100–148; BP diastolic 65–98; PULSE 58–89; RESP 16–18; O2SAT 96–99
[2017-02-19] MEDS: Heparin 5,000 Unit/mL Inj SUBQ SCH ×3 (00:17→17:33)
[2017-02-19 02:34] LABS: Mean Corpuscular Hemoglobin 31.1 pg (27.0-35.0); Mean Corpuscular Volume 93.2 fL (81-100)
[2017-02-19] MEDS: 0.9% Sodium Chloride 1,000 ML IV SCH ×3 (03:19→21:47)
[2017-02-19] MEDS ORDERED: KCl 40 mEq/500 mL D5W(K 3 - 3.7 & Creat < 2) IV ONE (04:15)
--- NOTE | 2017-02-19 05:00 | NUR ---
CIWA/K+ CIWA initially 18. Scheduled Librium given with little effect, pt trying to get out of restraints, swinging legs over bed. 10 Mg IV Valium given. Remainder of night CIWAs remain under 10. K this AM 3.1, Dr. Quintero notified- pt placed on K/ mag protocol- K infusing per protocol- will recheck when infusion complete.
[2017-02-19] MEDS: Multivit-Miner-Folic Acid-Iron Tablet PO SCH (10:10)
[2017-02-19] MEDS: chlordiazePOXIDE 25 mg Capsule PO SCH ×3 (10:10→19:46)
[2017-02-19] MEDS: Famotidine Inj 20 MG in IV Premix 1 EACH IV SCH ×2 (10:10→21:47)
[2017-02-19] MEDS: Sodium Chloride LOK Flush 10 mL Syringe IVFLUSH SCH ×2 (10:10→16:30)
--- NOTE | 2017-02-19 10:41 | NUR ---
Social Work: Continued d/c planning Data: Pt is on day 4 of hospitalization. EMR reviewed, pt discussed in multidisciplinary rounds. MD states pt likely needs at least 2-3 more days of hospitalization. RN and MD states pt still not appropriate for assessment at this time. Pt continues to be in restraints. TALENT ASSISTANT will follow up when pt appropriate for initial assessment and CD assessment. Assessment: Pt with alcohol dependence, independent at baseline, currently not capable of self care. Plan: Pt will likely d/c home via POV when medically stable. TALENT ASSISTANT will follow up when pt appropriate for initial assessment and CD assessment. TALI [place]
--- NOTE | 2017-02-19 14:19 | PCM.PNMED ---
Subjective Date of Service Feb 19, 2017 Subjective 66-year-old female with a history of alcohol abuse, alcoholic pancreatitis, and history of pyelonephritis presents with ongoing abdominal pain with associated nausea and vomiting, with associated symptoms of hematochezia versus melena. Patient quite somnolent and unable to participate in interview in any reasonable fashion Overnight the patient was quite agitated overnight pulling on restraints and trying to get out of bed, Librium had little effect, patient responsive to Valium. Comprehensive ROS unable to be obtained in sedated patient. Exam Vital Signs Vital Sign - Last Date Time Temp Pulse Resp B/P Pulse Ox O2 Delivery O2 Flow Rate FiO2 02/19/17 12:37 36.7 75 18 120/85 99 Room Air 02/16/17 15:25 2.00 Intake and Output 02/18/17 02/18/17 02/19/17 Cumulative From/Thru 15:00 23:00 07:00 02/15/17 09:56 - 02/19/17 05:22 Intake Total 400 ml 2074 ml 9053 ml Output Total 800 ml 1800 ml 8550 ml Balance -400 ml 274 ml 503 ml Intake Oral 400 ml 350 ml 4200 ml IV Total 1724 ml 4853 ml Output Urine Total 800 ml 1800 ml 8550 ml # Voids 1 # Bowel Movements 0 Exam Gen: Somnolent patient minimally responsive to external stimuli Neck: Supple, no JVD, no lymphadenopathy HEENT: PERRL, EOMI, no scleral icterus CV: RRR, no murmurs rubs or gallops Resp: Lungs CTA BL, no wheezing rales or rhonchi Abd: Soft, no rebound guarding or masses Extr: No clubbing cyanosis or edema Neuro: CN 2-12 grossly intact, no focal neurologic deficit Psych: Could not be assessed at the time of evaluation IVs and Medications Medications Reviewed: Medications were reviewed in detail Lab and Diagnostics Item Value Date Time Red Blood Count 3.96 mil/mm3 02/19/17226 Hematocrit 36.9 % 02/19/17226 Mean Corpuscular Volume 93.2 fL 02/19/17226 Mean Corpuscular Hemoglobin 31.1 pg 02/19/17226 Mean Corpuscular Hemoglobin Concent 33.3 % 02/19/17226 Red Cell Distribution Width 13.7 % 02/19/17226 Estimat Glomerular Filtration Rate 94 mL/min 02/19/17226 Calcium Level 8.9 mg/dL 02/19/17226 Total Bilirubin 0.4 mg/dL 02/19/17226 Aspartate Amino Transf (AST/SGOT) 25 U/L 02/19/17226 Alanine Aminotransferase (ALT/SGPT) 15 U/L 02/19/17226 Alkaline Phosphatase 66 U/L 02/19/17226 Albumin 3.6 g/dL 02/19/17226 Lipase 118 U/L H 02/19/17226 Total Protein 6.0 g/dL L 02/19/17226 Result Diagram: 02/19/1722602/19/17 1010 X-Rays, CTs and MRIs CT abdomen and pelvis 1. No definitive CT findings to explain left upper quadrant pain and vomiting. 2. Cholecystectomy. Common bile duct is dilated measuring 9.2 mm. Please correlate with serum bilirubin 3. No renal stone hydronephrosis. 4. Suboptimal examination due to lack of IV contrast. 5. Chronic compression deformity of L5 Dictated by: Rod Nelson M.D. on 02/15/2017 at 14:23 PROCEDURE: X-RAY BILATERAL RIBS, THREE VIEWS IMPRESSION: 1. Question of minimal infiltrate obscuring a portion of the medial aspect of the left hemidiaphragm on these films. Small pneumonia is suspected. Otherwise no abnormalities seen. If malignancy is suspected, nuclear medicine bone scan could be performed or alternatively breast MRI. Dictated by: Gabe TEMPLETON Interpreted: Ariel Peralta MD on 02/16/2017 at 14:15 PROCEDURE: X-RAY CHEST, TWO VIEWS IMPRESSION: Probable left lower lobe small pneumonia. Dictated by: Gabe TEMPLETON Interpreted: Ariel Peralta MD on 02/16/2017 at 14:25 MRI ABDOMEN WITHOUT CONTRAST IMPRESSION: The patient is status post cholecystectomy, and the caliber of the common duct is mildly prominent but considered within normal limits for age and post-cholecystectomy status. No common duct stone or mass is suspected. No additional abnormality is seen elsewhere. Dictated by: Jacob Flores M.D. on 02/17/2017 at 13:22 . Assessment & Plan 66-year-old female with a history of alcohol abuse, alcoholic pancreatitis, and history of pyelonephritis presents with ongoing abdominal pain with associated nausea and vomiting, with associated symptoms of hematochezia versus melena. Abdominal pain secondary to likely alcohol withdrawal due to alcohol dependence ; present admission; ongoing -Abdominal pain with nausea and vomiting in the setting of alcoholic who supposedly quit drinking abruptly -Toxicology did not identify alcohol in system at admission. H/o alcohol abuse as well as discussion with patient and son indicates increased alcohol use in the recent past. -Mild-moderate elevation in her lipase was identified 9.2 mm stone in the common bile duct. MRCP negative for stone. -Lipase downtrending -Urine Ethyl glucuronide ordered but will take a couple days to get back to check for recent alcohol use -Orders placed for close observation to start CIWA - 100mg PO Librium TID for treatment of alcohol withdrawal seizures. -10mg Diazepam IV PRN agitation, if patient still agitated, follow with 65mg IV Phenobarbital PRN, if patient still agitated, follow with another dose of IV Phenobarbital - Patient currently in soft restraints for safety. Will continue to monitor with CIWA protocol in place with goal score of under 10. Possible GI bleed; present on admission; Stable -Given patient's history with alcohol abuse, must consider esophageal varacies, will wait to consult GI once withdrawal symptoms under more control. -H&H is stable and normal -CBC in a.m. -Famotidine 20mg BID Hypokalemia; present on admission; Active -Likely due to recent vomiting and diarrhea -Replaced with 20 mEq IV -Recheck in a.m. Disposition: Given patient's alcohol dependence and risk for withdrawal seizure , patient is being medically detained for continued treatment. Given patient's current mental and physical condition in these withdrawals, patient will likely be discharged to home in the next 2-3 days. . Pain Evaluation: Adequate Pain Control VTE Prophylaxis: Sub-Q Heparin (Unfractionated) Resuscitation Status: CPR: Attempt Resuscitation Attending Statement The patient was seen and examined together with Dr. Turner on 02/19/2017 and I agree with the history, exam and plan as outlined in the note above. . Jamar Turner DO Feb 19, 2017 14:19 Eliu Bill MD Feb 19, 2017 16:09
[2017-02-19] MEDS ORDERED: KCl 40 mEq/D5W 500 mL 40 MEQ in IV Premix 1 EACH IV ONE (17:15)
[2017-02-19] MEDS: Polyethylene Glycol (PEG) 17 Gm Powder PO PRN (18:19)
--- NOTE | 2017-02-19 18:43 | NUR ---
CIWA/Restraints/K+ Potassium replenished per mg/K+ protocol. Cardiac: Denies chestpain. Tele: SR 60-80 with PVCs and PACs. BP down to 120s-130 /80s today. Resp: No s/s resp distress. SPO2 mid 90s on RA. GI/: Pt denies n/v Neuro: A&Ox3, WALLACE, pt reported sharp 6/10 pain from the top of her right illiac crest and up a few centimeters on her flank. Tylenol given for pain, mirilax given if constipation related. Pt has not had BM for a few days. CIWA 0 through the shift, pt sleeping. Pt rousable to take meds and have meals. No PRN CIWA meds given this shift. 100mg PO librium TID continues.
[2017-02-20] VITALS (11 sets, daily range): BP systolic 96–186; BP diastolic 55–106; PULSE 61–83; RESP 15–18; O2SAT 92–99
[2017-02-20] MEDS: Sodium Chloride LOK Flush 10 mL Syringe IVFLUSH SCH ×4 (00:30→22:20)
[2017-02-20] MEDS: Heparin 5,000 Unit/mL Inj SUBQ SCH ×3 (00:36→16:43)
--- NOTE | 2017-02-20 00:43 | NUR ---
Mentation: HS Librium held for increased drowsiness. Pt fairly sedated- opens eyes briefly to tactile stimulation. Restraints removed @2200. RR WNL- sats 90s on RA. BP noted to be decreasing 90s/50s ( pt previously Hypertensive). Dr. Valdes made aware of findings- states to continue to monitor pt at this time, and report any decrease in BP or responsiveness. Care continues.
[2017-02-20 03:38] LABS: BASOPHILS % (AUTO) 0.5 % (0-3); EOSINOPHILS % (AUTO) 5.2 % (0-5); MONOCYTES % (AUTO) 14.2 % (4-12); Mean Corpuscular Hemoglobin 31.1 pg (27.0-35.0); Mean Corpuscular Volume 93.8 fL (81-100); NEUTROPHILS % (AUTO) 50.2 % (40-74); Platelet Count 227 bil/L (150-400)
[2017-02-20 03:48] LABS: INR 0.88 ratio
[2017-02-20 04:02] LABS: Magnesium 1.7 mg/dL (1.6-2.6); Phosphorus 3.6 mg/dL (2.5-4.9)
[2017-02-20] MEDS: chlordiazePOXIDE 25 mg Capsule PO SCH ×2 (08:30→10:56)
[2017-02-20] MEDS: Famotidine Inj 20 MG in IV Premix 1 EACH IV SCH ×2 (08:51→22:20)
[2017-02-20] MEDS: Multivit-Miner-Folic Acid-Iron Tablet PO SCH (08:52)
--- NOTE | 2017-02-20 09:36 | PCM.PNMED ---
Subjective Date of Service Feb 20, 2017 Subjective 66-year-old female with a history of alcohol abuse, alcoholic pancreatitis, and history of pyelonephritis presents with ongoing abdominal pain with associated nausea and vomiting, with associated symptoms of hematochezia versus melena. Nursing reports no acute events overnight. Patient seen and examined laying in bed. Somnolent during interview and not answering questions. Has no complaints at this time. ROS reviewed and otherwise negative. Exam Vital Signs Vital Sign - Last Date Time Temp Pulse Resp B/P Pulse Ox O2 Delivery O2 Flow Rate FiO2 02/20/17 08:25 61 02/20/17 08:15 36.4 16 111/59 94 Room Air 02/16/17 15:25 2.00 Intake and Output 02/19/17 02/19/17 02/20/17 Cumulative From/Thru 15:00 23:00 07:00 02/15/17 09:56 - 02/20/17 05:51 Intake Total 1391 ml 1200 ml 80156 ml Output Total 1800 ml 86855 ml Balance 1391 ml -600 ml 1294 ml Intake Oral 300 ml 20 ml 4520 ml IV Total 1091 ml 1180 ml 7124 ml Output Urine Total 1800 ml 16992 ml # Voids 1 2 # Bowel Movements 0 0 0 Exam Constitutional: Somnolent, but arousable to voice and able to follow simple commands. Frail. In no acute distress. Head: Normocephalic and atraumatic Eyes: no scleral icterus. [place] conjunctiva Heart: regular rate and rhythm. No peripheral edema. Lungs: clear to auscultation. No wheeze, rales, or rhonchi ABD: soft, nontender, bowel sounds present throughout Musculoskeletal: moves all four extremities Neuro: CN II-XII intact. no focal deficits. Psych: somnolent, unable to assess secondary to patient status. IVs and Medications IV Fluids 2L NS given in the last 24 hours. Medications Reviewed: Medications were reviewed in detail Lab and Diagnostics Item Value Date Time Red Blood Count 3.86 mil/mm3 L 02/20/17 0240 Mean Corpuscular Volume 93.8 fL 02/20/17 0240 Mean Corpuscular Hemoglobin 31.1 pg 02/20/17 0240 Mean Corpuscular Hemoglobin Concent 33.1 % 02/20/17 0240 Red Cell Distribution Width 13.8 % 02/20/17 0240 Neutrophils (%) (Auto) 50.2 % 02/20/17 0240 Lymphocytes (%) (Auto) 29.4 % 02/20/17 024 Monocytes (%) (Auto) 14.2 % H 02/20/17 0240 Eosinophils (%) (Auto) 5.2 % H 02/20/17 0240 Basophils (%) (Auto) 0.5 % 02/20/17 024 Estimat Glomerular Filtration Rate 105 mL/min 02/20/17 024 Calcium Level 9.0 mg/dL 02/20/17 024 Phosphorus Level 3.6 mg/dL 02/20/17 024 Total Bilirubin 0.3 mg/dL 02/20/17 0240 Magnesium Level 1.7 mg/dL 02/20/17 024 Aspartate Amino Transf (AST/SGOT) 35 U/L 02/20/17 024 Alanine Aminotransferase (ALT/SGPT) 20 U/L 02/20/17 024 Alkaline Phosphatase 66 U/L 02/20/17 024 Total Protein 6.0 g/dL L 02/20/17 0240 Albumin 3.4 g/dL 02/20/17 024 Prothrombin Time 9.4 sec 02/20/17 024 Prothromb Time International Ratio 0.88 ratio 02/20/17 024 Result Diagram: 02/20/17 02402/20/17 024 X-Rays, CTs and MRIs CT abdomen and pelvis 1. No definitive CT findings to explain left upper quadrant pain and vomiting. 2. Cholecystectomy. Common bile duct is dilated measuring 9.2 mm. Please correlate with serum bilirubin 3. No renal stone hydronephrosis. 4. Suboptimal examination due to lack of IV contrast. 5. Chronic compression deformity of L5 Dictated by: Rod Nelson M.D. on 02/15/2017 at 14:23 PROCEDURE: X-RAY BILATERAL RIBS, THREE VIEWS IMPRESSION: 1. Question of minimal infiltrate obscuring a portion of the medial aspect of the left hemidiaphragm on these films. Small pneumonia is suspected. Otherwise no abnormalities seen. If malignancy is suspected, nuclear medicine bone scan could be performed or alternatively breast MRI. Dictated by: Gabe Rosenthal RRA Interpreted: Ariel Peralta MD on 02/16/2017 at 14:15 PROCEDURE: X-RAY CHEST, TWO VIEWS IMPRESSION: Probable left lower lobe small pneumonia. Dictated by: Gabe Rosenthal [facility] Interpreted: Ariel Peralta MD on 02/16/2017 at 14:25 MRI ABDOMEN WITHOUT CONTRAST IMPRESSION: The patient is status post cholecystectomy, and the caliber of the common duct is mildly prominent but considered within normal limits for age and post-cholecystectomy status. No common duct stone or mass is suspected. No additional abnormality is seen elsewhere. Dictated by: Jacob Flores M.D. on 02/17/2017 at 13:22 . Assessment & Plan 66-year-old female with a history of alcohol abuse, alcoholic pancreatitis, and history of pyelonephritis presents with ongoing abdominal pain with associated nausea and vomiting, with associated symptoms of hematochezia versus melena. Abdominal pain secondary to likely alcohol withdrawal due to alcohol dependence ; present admission; ongoing -Abdominal pain with nausea and vomiting in the setting of alcoholic who supposedly quit drinking abruptly -Toxicology did not identify alcohol in system at admission. H/o alcohol abuse as well as discussion with patient and son indicates increased alcohol use in the recent past. -Continue CIWA protocol - Decrease 100mg PO Librium TID to 50mg PO TID for alcohol withdrawal. Will assess patient's status with decrease in dose. -10mg Diazepam IV PRN agitation, if patient still agitated, follow with 65mg IV Phenobarbital PRN, if patient still agitated, follow with another dose of IV Phenobarbital - Patient currently out of soft restraints. Will continue to monitor with CIWA protocol in place with goal score of under 10. Possible GI bleed; present on admission; Stable -Given patient's history with alcohol abuse, must consider esophageal varacies, will wait to consult GI once withdrawal symptoms are under more control. -H&H is stable and normal -CBC in a.m. -Continue famotidine 20mg BID Elevated liver enzyme most likely secondary to alcoholism; present on admission ; resolving -Mild-moderate elevation in her lipase was identified 9.2 mm stone in the common bile duct. MRCP negative for stone. -Lipase Trending down previously 215 currently 110 -Continue to monitor Hypokalemia; present on admission; Resolved -Continue to monitor FULL CODE Disposition: Given patient's alcohol dependence and risk for withdrawal seizure , patient is being medically detained for continued treatment. Given patient's current mental and physical condition in these withdrawals, patient will likely be discharged to home in the next 2-3 days. . VTE Prophylaxis: Sub-Q Heparin (Unfractionated) Resuscitation Status: CPR: Attempt Resuscitation Attending Statement The patient was seen and examined together with Dr. Pillai on 02/20/17 and I have added additional information to the note above. Alfred Pillai DO Feb 20, 2017 09:36 Aurelia Mike DO Feb 20, 2017 13:50
--- NOTE | 2017-02-20 17:21 | NUR ---
Social Work: Multidisciplinary Rounds D/a: Pt discussed in multidisciplinary Rounds. Pt CIWA is currently 2 however pt is very lethargic and sedated. Pt is not appropriate for assessment at this time. P: PRIVACY SPECIALIST to continue to follow and to see pt to complete CD assessment and dcp once pt is appropriate to engage. TALI [place]
--- NOTE | 2017-02-20 17:39 | NUR ---
confusion and lethargy Pt lethargic this AM. Arrouses to softly calling her name and slight shaking. Ate some of her breakfast with 1:1 feed d/t lethargy. Librium held this AM. Around 1100 pt became agitated, started stating "i want out of this Fing place." CIWA=12, 50 librium given. Pt sleeping comfortably after admin. Woke up later to use BSC, 2 person assist, pt not able to support her weight very well. Per discussion with , no further librium to be given. She woke up in the afternoon, able to have a conversation, last thing she remembers is going to a friends house, doesn't understand why she is in the hospital. She was able to drink coffee without assistance in the afternoon and able to have a conversation more than in the morning.
[2017-02-21] VITALS (7 sets, daily range): BP systolic 135–166; BP diastolic 88–104; PULSE 68–89; RESP 16; O2SAT 97–99
[2017-02-21] MEDS: Heparin 5,000 Unit/mL Inj SUBQ SCH ×3 (01:00→18:22)
[2017-02-21] MEDS: 0.9% Sodium Chloride 1,000 ML IV SCH ×3 (01:00→22:21)
[2017-02-21 03:00] LABS: Mean Corpuscular Hemoglobin 30.9 pg (27.0-35.0); Mean Corpuscular Volume 93.7 fL (81-100)
--- NOTE | 2017-02-21 06:13 | NUR ---
Orientation Disoriented, agitated and restless, climbing oob. CIWA Totals range 20-13. When asked orientation to place, stated "Tracy is coming to take me to the fair". Became increasingly agitated, dislodged IV, and indicated if she was to have a beer and she would do what we need. Gave 5mg Diazepam (x2), restlessness, climbing oob, and disorientation continues. Repeated Diazepam 10mg, pt. now resting with eyes closed. IV restart - 22g in L. forearm NS running @ 75 mL'. Bed alarm on, lalo in place for pt. safety. Noted to have htn, otherwise VSS. Tele: SR in 's. Report given to on coming RN. Addendum: 02/21/17 at 0627 by MCKENNA STEINBERG RN HTN: Attending resident paged (Keisha) and notified regarding B/P trends.
[2017-02-21] MEDS: Sodium Chloride LOK Flush 10 mL Syringe IVFLUSH SCH ×2 (08:30→16:30)
[2017-02-21] MEDS: Multivit-Miner-Folic Acid-Iron Tablet PO SCH (10:54)
[2017-02-21] MEDS: Famotidine Inj 20 MG in IV Premix 1 EACH IV SCH ×2 (10:54→22:20)
--- NOTE | 2017-02-21 17:08 | PCM.PROC ---
Procedure Note Date of Service: Feb 21, 2017 Procedure: Procedure: Osteopathic Manipulative Treatment Subjective: Patient is a 66-year-old female who is currently undergoing alcohol withdrawal. The patient currently complains of left sided rib pain and constipation. The patient has not had a bowel movement in the last 4 days and the patient feels that her left-sided rib pain started prior to admission secondary to a family friend giving her a "big Bear hug". The patient states that movement makes it worse and palpation also makes the pain worse for the left sided rib pain. An x-ray was taken specifically for the ribs look for any fractures and this was negative and so this rib pain is most likely musculoskeletal in nature. The patient states that the pain is on the left upper quadrant anteriorly. The pain was able to be reproduced in the front upon palpation of the posterior portion of the rib when palpating from posterior to anterior. Risks and benefits of OMT were explained to the patient and verbal consent obtained. Osteopathic Structural Exam: Thoracics: Thoracic outlet rotated left Lumbars: L1-L3 NRrSl Abdomen: Left-sided diaphragm restriction Ribs: Rib 10 inhaled 11 inhaled and posterior Pelvis: Anterior right innominate Sacrum: Left sacroiliac joint restriction Upper extremities: Left latissimus dorsi hypertonicity Lower extremities: Left psoas tenderness Patient responded well to treatment. The patient stated that her left upper quadrant pain had decreased status post treatment. Osteopathic treatment modalities used: Myofascial release, Cranial, BLT, rib raising, and soft tissue technique Provider and Supervisor Production Managing: Dr. Rosas Bowden (medical student) Judith Fenton (medical student) Aurelia Mike DO Feb 21, 2017 17:08
--- NOTE | 2017-02-21 17:50 | PCM.PNMED ---
Subjective Date of Service Feb 21, 2017 Subjective 66-year-old female with a history of alcohol abuse, alcoholic pancreatitis, and history of pyelonephritis presents with ongoing abdominal pain with associated nausea and vomiting, with associated symptoms of hematochezia versus melena Nursing reports patient had increased agitation and confusion overnight. Total of 20mg Diazepam given during the night. No other acute events. Patient seen and examined. Somnolent, but answering questions. Reports lower left rib pain. Denies CP, SOB, N/V/D, ABD pain, and Headache. Oriented to person, place, and time. ROS reviewed and is otherwise negative. Exam Vital Signs Vital Sign - Last Date Time Temp Pulse Resp B/P Pulse Ox O2 Delivery O2 Flow Rate FiO2 02/21/17 03:16 36.9 80 16 166/104 97 Room Air 02/16/17 15:25 2.00 Intake and Output 02/20/17 02/20/17 02/21/17 Cumulative From/Thru 15:00 23:00 07:00 02/15/17 09:56 - 02/21/17 06:09 Intake Total 1495 ml 747 ml 16485 ml Output Total 0 ml 950 ml 05539 ml Balance 1495 ml -203 ml 2586 ml Intake Oral 450 ml 100 ml 5070 ml IV Total 1045 ml 647 ml 8816 ml Output Urine Total 0 ml 950 ml 44907 ml # Voids 2 4 # Bowel Movements 0 Exam Constitutional: Awake, Somnolent. Oriented to place, person, and time, but not to situation. States that she is here for the fair. Head: Normocephalic and atraumatic Eyes: no scleral icterus. [place] conjunctiva Heart: Regular rate and rhythm. No peripheral edema Lungs: clear to auscultation bilaterally. no wheeze, rales, or rhonchi. T10 rib pain anteriorly on the left. ABD: Soft, nontender, bowel sounds present throughout Musculoskeletal: moves all four extremities appropriately Neuro: CN II-XII intact. no focal deficits. Skin: warm, dry, no rash Psych: Slurred speech. Not oriented to situation. Flat affect. IVs and Medications IV Fluids 1L NS given in the last 24 hours. Medications Reviewed: Medications were reviewed in detail Lab and Diagnostics Item Value Date Time Red Blood Count 3.98 mil/mm3 02/21/17 0225 Mean Corpuscular Volume 93.7 fL 02/21/17224 Mean Corpuscular Hemoglobin Concent 33.0 % 02/21/17224 Red Cell Distribution Width 13.8 % 02/21/17224 Estimat Glomerular Filtration Rate 99 mL/min 02/21/17224 Calcium Level 9.0 mg/dL 02/21/17224 Total Bilirubin 0.2 mg/dL 02/21/17224 Alanine Aminotransferase (ALT/SGPT) 24 U/L 02/21/17224 Aspartate Amino Transf (AST/SGOT) 34 U/L 02/21/17224 Alkaline Phosphatase 69 U/L 02/21/17224 Total Protein 5.8 g/dL L 02/21/17224 Albumin 3.3 g/dL L 02/21/17224 Lipase 110 U/L H 02/20/17239 Result Diagram: 02/21/1722402/21/17224 X-Rays, CTs and MRIs CT abdomen and pelvis 1. No definitive CT findings to explain left upper quadrant pain and vomiting. 2. Cholecystectomy. Common bile duct is dilated measuring 9.2 mm. Please correlate with serum bilirubin 3. No renal stone hydronephrosis. 4. Suboptimal examination due to lack of IV contrast. 5. Chronic compression deformity of L5 Dictated by: Rod Nelson M.D. on 02/15/2017 at 14:23 PROCEDURE: X-RAY BILATERAL RIBS, THREE VIEWS IMPRESSION: 1. Question of minimal infiltrate obscuring a portion of the medial aspect of the left hemidiaphragm on these films. Small pneumonia is suspected. Otherwise no abnormalities seen. If malignancy is suspected, nuclear medicine bone scan could be performed or alternatively breast MRI. Dictated by: Gabe TEMPLETON Interpreted: Ariel Peralta MD on 02/16/2017 at 14:15 PROCEDURE: X-RAY CHEST, TWO VIEWS IMPRESSION: Probable left lower lobe small pneumonia. Dictated by: Gabe TEMPLETON Interpreted: Ariel Peralta MD on 02/16/2017 at 14:25 MRI ABDOMEN WITHOUT CONTRAST IMPRESSION: The patient is status post cholecystectomy, and the caliber of the common duct is mildly prominent but considered within normal limits for age and post-cholecystectomy status. No common duct stone or mass is suspected. No additional abnormality is seen elsewhere. Dictated by: Jacob Flores M.D. on 02/17/2017 at 13:22 . Assessment & Plan 66-year-old female with a history of alcohol abuse, alcoholic pancreatitis, and history of pyelonephritis presents with ongoing abdominal pain with associated nausea and vomiting, with associated symptoms of hematochezia versus melena. Abdominal pain secondary to likely alcohol withdrawal due to alcohol dependence ; present admission; ongoing -Abdominal pain with nausea and vomiting in the setting of alcoholic who supposedly quit drinking abruptly - Urine Ethyl Glucuronide came back positive for recent alcohol use. -Toxicology did not identify alcohol in system at admission. H/o alcohol abuse as well as discussion with patient and son indicates increased alcohol use in the recent past. -Continue CIWA protocol - Stop Librium. Continue PRN dose of Diazepam. -10mg Diazepam IV PRN agitation, if patient still agitated, follow with 65mg IV Phenobarbital PRN, if patient still agitated, follow with another dose of IV Phenobarbital -Will continue to monitor with CIWA protocol in place with goal score of under 10. - I am recommending a sitter for tonight as we are weaning patient off of the benzodiazepine regimen for the alcohol withdrawal, and we are still concerned for her safety. Possible GI bleed; present on admission; Stable -Given patient's history with alcohol abuse, must consider esophageal varacies, will wait to consult GI once withdrawal symptoms are under more control. -H&H is stable and normal -CBC in a.m. -Continue famotidine 20mg BID Elevated liver enzyme most likely secondary to alcoholism; present on admission ; resolving -Mild-moderate elevation in her lipase was identified 9.2 mm stone in the common bile duct. MRCP negative for stone. -Lipase Trending down previously 215 currently 110 -Continue to monitor Hypokalemia; present on admission; Resolved -Continue to monitor -Patient receiving Heparin for anticoagulation. FULL CODE Disposition: Given patient's alcohol dependence and risk for withdrawal seizure , patient is being medically detained for continued treatment. Given patient's current mental and physical condition in these withdrawals, patient will likely be discharged to home in the next 2-3 days. . VTE Prophylaxis: Sub-Q Heparin (Unfractionated) Resuscitation Status: CPR: Attempt Resuscitation Attending Statement The patient was seen and examined together with Dr. Pillai on 02/21/17 and I agree with the history, exam and plan as outlined in the note above. Alfred Pillai DO Feb 21, 2017 06:35 Aurelia Mike DO Feb 27, 2017 13:34
--- NOTE | 2017-02-21 18:40 | NUR ---
CIWA/activity Cardiac: Denies chestpain. Tele: SR 70'S Resp: Pt denies SOB, SPO2 high 90s on RA. GI/: Pt denies n/v, mirilax and senna given for constipation. Neuro: Alert but not oriented this morning, pt is able to be reoriented for short periods of time. Pt is drowsy, but sometimes agitated when awake and wants to get out of bed. Pt has been getting up to BSC to void and stood at edge of bed with nurse to get strength back. Pt is seeing things in the room like cats and babies in the bed. CIWA 3 this AM, 8 this afternoon. Spent a busy day intervening with pt to talk and keep her in bed. Stood at the edge of bed a few times for exercise.
[2017-02-22] MEDS: Sodium Chloride LOK Flush 10 mL Syringe IVFLUSH SCH ×3 (00:30→16:30)
[2017-02-22 02:28] VITALS: BP 179/110; PULSE 77; RESP 16; O2SAT 99
[2017-02-22] MEDS: Heparin 5,000 Unit/mL Inj SUBQ SCH ×3 (02:40→18:31)
--- NOTE | 2017-02-22 06:36 | NUR ---
Mentation Assumed care of pt. ~1915. Pt. confused, agitated, and climbing oob. Indicates she is in the taoist building, and its time to go home. MD aware, orders for soft restraints for pt. safety. CIWA assessments complete, withheld sedative medications - per MD request (). Increase in agitation through the night, with only brief periods of rest. Up to BSC with 2PA, pt. very weak and unsteady. VSS. Tele: SR in 80's. Report given to on coming RN.
[2017-02-22] MEDS ORDERED: Thiamine Inj 100 MG, Folic Acid Inj 1 MG, Magnesium Sulfate 50% Inj 2 GM, Multivitamins... IV ONE ×5 (07:00)
[2017-02-22 07:31] VITALS: BP 154/96; PULSE 77; RESP 16; O2SAT 99
[2017-02-22] MEDS: 0.9% Sodium Chloride 1,000 ML IV SCH ×2 (09:25→22:09)
[2017-02-22 09:58] VITALS: PULSE 80
[2017-02-22] MEDS: Multivit-Miner-Folic Acid-Iron Tablet PO SCH (10:15)
[2017-02-22] MEDS: Famotidine Inj 20 MG in IV Premix 1 EACH IV SCH ×2 (10:16→22:09)
--- NOTE | 2017-02-22 11:02 | NUR ---
AM Meds Delayed PO meds delayed this AM to let pt sleep with concurrence from Dr Pillai.
[2017-02-22] MEDS: Polyethylene Glycol (PEG) 17 Gm Powder PO PRN (12:03)
[2017-02-22 16:38] VITALS: BP 140/93; PULSE 80; RESP 16; O2SAT 96
--- NOTE | 2017-02-22 17:48 | PCM.PNMED ---
Subjective Date of Service Feb 22, 2017 Subjective 66-year-old female with a history of alcohol abuse, alcoholic pancreatitis, and history of pyelonephritis presents with ongoing abdominal pain with associated nausea and vomiting, with associated symptoms of hematochezia versus melena Nursing reports increased agitation overnight, patient placed in soft restraints for safety. Exam Vital Signs Vital Sign - Last Date Time Temp Pulse Resp B/P Pulse Ox O2 Delivery O2 Flow Rate FiO2 02/22/17 02:28 36.6 77 16 179/110 99 Room Air 02/16/17 15:25 2.00 Intake and Output 02/21/17 02/21/17 02/22/17 Cumulative From/Thru 15:00 23:00 07:00 02/15/17 09:56 - 02/22/17 05:20 Intake Total 971 ml 0 ml 31999 ml Output Total 1800 ml 800 ml 92674 ml Balance -829 ml -800 ml 957 ml Intake Oral 300 ml 0 ml 5370 ml IV Total 671 ml 9487 ml Output Urine Total 1800 ml 800 ml 00238 ml # Voids 4 # Bowel Movements 0 0 Exam Constitutional: Awake, Somnolent. Oriented to place, person, and time, but not to situation. States that she is here for the fair. Head: Normocephalic and atraumatic Eyes: no scleral icterus. [place] conjunctiva Heart: Regular rate and rhythm. No peripheral edema Lungs: clear to auscultation bilaterally. no wheeze, rales, or rhonchi. ABD: Soft, nontender, bowel sounds present throughout Musculoskeletal: moves all four extremities appropriately Neuro: CN II-XII intact. no focal deficits. Skin: warm, dry, no rash Psych: Slurred speech. Not oriented to situation. Flat affect. IVs and Medications Medications Reviewed: Medications were reviewed in detail Lab and Diagnostics Result Diagram: 02/21/1722402/21/17224 X-Rays, CTs and MRIs CT abdomen and pelvis 1. No definitive CT findings to explain left upper quadrant pain and vomiting. 2. Cholecystectomy. Common bile duct is dilated measuring 9.2 mm. Please correlate with serum bilirubin 3. No renal stone hydronephrosis. 4. Suboptimal examination due to lack of IV contrast. 5. Chronic compression deformity of L5 Dictated by: Rod Nelson M.D. on 02/15/2017 at 14:23 PROCEDURE: X-RAY BILATERAL RIBS, THREE VIEWS IMPRESSION: 1. Question of minimal infiltrate obscuring a portion of the medial aspect of the left hemidiaphragm on these films. Small pneumonia is suspected. Otherwise no abnormalities seen. If malignancy is suspected, nuclear medicine bone scan could be performed or alternatively breast MRI. Dictated by: Gabe TEMPLETON Interpreted: Ariel Peralta MD on 02/16/2017 at 14:15 PROCEDURE: X-RAY CHEST, TWO VIEWS IMPRESSION: Probable left lower lobe small pneumonia. Dictated by: Gabe TEMPLETON Interpreted: Ariel Peralta MD on 02/16/2017 at 14:25 MRI ABDOMEN WITHOUT CONTRAST IMPRESSION: The patient is status post cholecystectomy, and the caliber of the common duct is mildly prominent but considered within normal limits for age and post-cholecystectomy status. No common duct stone or mass is suspected. No additional abnormality is seen elsewhere. Dictated by: Jacob Flores M.D. on 02/17/2017 at 13:22 . Assessment & Plan 66-year-old female with a history of alcohol abuse, alcoholic pancreatitis, and history of pyelonephritis presents with ongoing abdominal pain with associated nausea and vomiting, with associated symptoms of hematochezia versus melena. Alcohol withdrawal due to alcohol dependence; present admission; ongoing -Abdominal pain with nausea and vomiting in the setting of alcoholic who supposedly quit drinking abruptly - Urine Ethyl Glucuronide came back positive for recent alcohol use. -Toxicology did not identify alcohol in system at admission. H/o alcohol abuse as well as discussion with patient and son indicates increased alcohol use in the recent past. -Continue PRN dose of Diazepam. Patient has been stable and not requiring PRN doses. -10mg Diazepam IV PRN agitation, if patient still agitated, follow with 65mg IV Phenobarbital PRN, if patient still agitated, follow with another dose of IV Phenobarbital -Will continue to monitor with CIWA protocol in place with goal score of under 10. CIWA has been anywhere from 3 to 8 in the last 24 hours. - I am recommending continuing a sitter for tonight as patient has had minimal ambulation in the last few days and we are still concerned for her safety and patient has known impulsiveness. - 1L Banana bag given today for vitamin (folate) and Thiamine replacement. Abdominal pain secondary to likely pancreatitis vs somatic dysfunction to Left thoracic T10, present on admission, Resolved. - Patient has had no further abdominal pain in the last 24 hours. 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 Possible GI bleed; present on admission; Stable -Given patient's history with alcohol abuse, must consider esophageal varacies. -Patient has not had any nausea, vomiting, or hematochezia in the past week. -H&H is stable and normal -CBC in a.m. -Continue famotidine 20mg IV BID Elevated liver enzyme most likely secondary to alcoholism; present on admission ; resolving -Mild-moderate elevation in her lipase was identified 9.2 mm stone in the common bile duct. MRCP negative for stone. -Lipase Trending down previously 215 currently 110 -Continue to monitor Hypokalemia; present on admission; Resolved -Continue to monitor -Patient receiving Heparin for anticoagulation. FULL CODE Disposition: Given patient's alcohol dependence and risk for withdrawal seizure , patient is being medically detained for continued treatment. Given patient's currently not requiring any benzodiazepine medications for seizure control in the last 24 hours and has had repeated CIWA scores below 10, patient will likely be discharged to home in the next 2-3 days. VTE Prophylaxis: Sub-Q Heparin (Unfractionated) Resuscitation Status: CPR: Attempt Resuscitation Attending Statement The patient was seen and examined together with Dr. Pillai on 02/22/17 and I have added additional information to the note above. Alfred Pillai DO Feb 22, 2017 06:49 Aurelia Mike DO Feb 27, 2017 13:40
--- NOTE | 2017-02-22 19:37 | NUR ---
Constipation/LOC/BP Cardiac: Pt denies CP. Tele: SR 60-80s, up to 90-110 with walking. Pt's BP a little more elevated this AM 150s/90s, scheduled BP meds given. Resp: Pt denies SOB, SPO2 96% on RA. GI/: Denies pain, n/v - mirilax and senna given for constipation this AM, no BM this Shift Neuro: Restraints DC'd at beginning of shift. Pt is alert and not oriented to self only. Pt is more oriented than she has been in the past with periods of knowing that she is in the hospital and past events that have happened here, but she is also having periods of confusion. Hallucinations seem less frequent than yesterday. When pt gets restless, nurse and CUSTOM HOME INSTALLER have been walking with pt in room. She is very weak, but is able to be redirected back to bed when she tires. Pt's coordination and strength are improved from standing at edge of bed yesterday, was gotten out of bed several times this shift. At end of shift pt was able to sit at the edge of bed and eat her dinner without assistance. Sitter pulled at 13:30.
[2017-02-22 19:52] VITALS: BP 123/94; PULSE 81; RESP 16; O2SAT 100
[2017-02-22 23:19] VITALS: BP 116/81; PULSE 71; RESP 16; O2SAT 97
[2017-02-23] MEDS: Sodium Chloride LOK Flush 10 mL Syringe IVFLUSH SCH ×4 (00:30→20:11)
[2017-02-23] MEDS: Heparin 5,000 Unit/mL Inj SUBQ SCH ×3 (01:11→18:21)
[2017-02-23 03:22] VITALS: BP 138/89; PULSE 63; RESP 15; O2SAT 95
--- NOTE | 2017-02-23 06:18 | NUR ---
Mentation/Telemetry Assumed care ~1930. Oriented to self, agitated, and attempting to climb oob - sitter at bedside. Assisted to bedside to encourage activity, pt. indicated feeling fatigued, returned to bed and rested with eyes closed for extended period of time. Woke alert, somewhat oriented to place, conversational, and cooperative with care. Up to BSC with assistance. VSS, with improved BP MD placed order to D/C tele. IV fluids infusing @ 75mL/hr. taking PO fluids well this am. Report given to on coming RN.
[2017-02-23 07:44] VITALS: BP 119/84; PULSE 80; RESP 16; O2SAT 96
[2017-02-23] MEDS: Famotidine Inj 20 MG in IV Premix 1 EACH IV SCH ×2 (10:20→20:10)
[2017-02-23] MEDS: Multivit-Miner-Folic Acid-Iron Tablet PO SCH (10:21)
[2017-02-23] MEDS: Polyethylene Glycol (PEG) 17 Gm Powder PO PRN (10:22)
[2017-02-23] MEDS: 0.9% Sodium Chloride 1,000 ML IV SCH (12:05)
--- NOTE | 2017-02-23 13:32 | NUR ---
Social Work: Initial Assessment/Chemical Dependency/Multidisciplinary Rounds D: Per EMR review, pt is a 66 year old female admitted for persistent vomiting, hypertensive urgency. Pt is [facility] with no supplement, LTC or VA Benefits. PCP is Wiley Gar DO. NOK Is Stoney Levine, son, . Advanced directives completed- information requested for pt's chart. REadmit score is low, 2/8. Pt discussed in multidisciplinary rounds; pt is improving and is more oriented at this time. The pt is appropriate for assessment. CORK PRESSING MACHINE OPERATOR met with the pt and her son at bedside. Sw role explained, contact information and dcp checklist provided. Pt lives in [place] with her son in a single story home. Pt has never had HH or skilled rehab. Pt continues to drive and was previously I with all of her own self-care. Pt has a history of ETOH use. Pt is interested in CD treatment when she leaves the hospital; pt signed a release of information to provide referral to [facility] to complete a bedside assessment (original on chart). CORK PRESSING MACHINE OPERATOR has placed referral to Miriam Gold with [facility]. She will see the patient today. Pt states that she has been drinking ETOH since she was 13 years old. The patient has never gone to treatment but states she participated in AA meetings for a period of time. Pt reports many years of sobriety during times in her life, including and raising children. The patient states that on the day of admission she had just returned from [place] visiting a second son. She states that the son has a rare blood disease and coping with this is extremely hard. Pt reports that she consumed a 6 pack of 12 beers along with another 24oz can of beer; her son confirms this. Pt was hospitalized last year at [facility] for ETOH related liver issues. Pt has good insight into her drinking habits and has good motivation to change. Pt's son, is very supportive of the pt going to treatment. Pt is currently working with PT to assess pt's rehab/ambulatory needs for discharge. CORK PRESSING MACHINE OPERATOR will follow up with the family and patient re: these recommendations as they relate to their preference for pt to get into treatment. A: Pt who was formerly I P: Evolving; pt's discharge plan is evolving. CORK PRESSING MACHINE OPERATOR to continue to follow closely to develop a discharge plan. TALI Wynne Addendum: 02/23/17 at 1346 by PHILIPPE LYNN Amended: Links added.
--- NOTE | 2017-02-23 14:53 | PCM.PNMED ---
Subjective Date of Service Feb 23, 2017 Subjective 66-year-old female with a history of alcohol abuse, alcoholic pancreatitis, and history of pyelonephritis presents with ongoing abdominal pain with associated nausea and vomiting, with associated symptoms of hematochezia versus melena Nursing reports no acute events overnight. Patient seen and examined sitting on the side of the bed. Patient denies any pain at this time. Patient making good urine, and has had one small bowel movement overnight. ROS reviewed and is otherwise negative unless noted above. Exam Vital Signs Vital Sign - Last Date Time Temp Pulse Resp B/P Pulse Ox O2 Delivery O2 Flow Rate FiO2 02/23/17 07:44 36.8 80 16 119/84 96 Room Air Intake and Output 02/22/17 02/22/17 02/23/17 Cumulative From/Thru 15:00 23:00 07:00 02/15/17 09:56 - 02/23/17 05:29 Intake Total 820 ml 680 ml 1630 ml 01593 ml Output Total 1000 ml 1900 ml 04277 ml Balance 820 ml -320 ml -270 ml 1187 ml Intake Oral 680 ml 537 ml 6587 ml IV Total 820 ml 1093 ml 88746 ml Output Urine Total 1000 ml 1900 ml 12370 ml # Voids 4 # Bowel Movements 0 0 Exam Constitutional: Awake, alert and oriented x3. Frail. No acute distress. Head: normocephalic and atraumatic Eyes: EOMI, no scleral icterus, pink conjunctiva Heart: regular rate and rhythm. no murmurs. no peripheral edema. Lungs: Clear to auscultation bilaterally. ABD: soft, nontender, bowel sounds present throughout. Musculoskeletal: moves all four extremities appropriately. Able to walk with assistance. Neuro: CN II-XII intact. no focal deficits. Skin: warm, dry, no rash. Psych: Appropriate mood and affect. IVs and Medications IV Fluids Received 1L NS in the last 24 hours. Medications Reviewed: Medications were reviewed in detail Lab and Diagnostics Result Diagram: 02/21/1722402/21/17224 X-Rays, CTs and MRIs CT abdomen and pelvis 1. No definitive CT findings to explain left upper quadrant pain and vomiting. 2. Cholecystectomy. Common bile duct is dilated measuring 9.2 mm. Please correlate with serum bilirubin 3. No renal stone hydronephrosis. 4. Suboptimal examination due to lack of IV contrast. 5. Chronic compression deformity of L5 Dictated by: Rod Nelson M.D. on 02/15/2017 at 14:23 PROCEDURE: X-RAY BILATERAL RIBS, THREE VIEWS IMPRESSION: 1. Question of minimal infiltrate obscuring a portion of the medial aspect of the left hemidiaphragm on these films. Small pneumonia is suspected. Otherwise no abnormalities seen. If malignancy is suspected, nuclear medicine bone scan could be performed or alternatively breast MRI. Dictated by: Gabe TEMPLETON Interpreted: Ariel Peralta MD on 02/16/2017 at 14:15 PROCEDURE: X-RAY CHEST, TWO VIEWS IMPRESSION: Probable left lower lobe small pneumonia. Dictated by: Gabe TEMPLETON Interpreted: Ariel Peralta MD on 02/16/2017 at 14:25 MRI ABDOMEN WITHOUT CONTRAST IMPRESSION: The patient is status post cholecystectomy, and the caliber of the common duct is mildly prominent but considered within normal limits for age and post-cholecystectomy status. No common duct stone or mass is suspected. No additional abnormality is seen elsewhere. Dictated by: Jacob Flores M.D. on 02/17/2017 at 13:22 . Assessment & Plan 66-year-old female with a history of alcohol abuse, alcoholic pancreatitis, and history of pyelonephritis presents with ongoing abdominal pain with associated nausea and vomiting, with associated symptoms of hematochezia versus melena. Alcohol withdrawal due to alcohol dependence; present admission; Improving -Abdominal pain with nausea and vomiting in the setting of alcoholic who supposedly quit drinking abruptly - Urine Ethyl Glucuronide came back positive for recent alcohol use. -Toxicology did not identify alcohol in system at admission. H/o alcohol abuse as well as discussion with patient and son indicates increased alcohol use in the recent past. -Continue PRN dose of Diazepam. Patient has been stable and not requiring PRN doses. -10mg Diazepam IV PRN agitation, if patient still agitated, follow with 65mg IV Phenobarbital PRN, if patient still agitated, follow with another dose of IV Phenobarbital -Will continue to monitor with CIWA protocol in place with goal score of under 10. CIWA has been below 10 for greater than 24 hours without need for medications. - I am recommending continuing a sitter for tonight as patient has had minimal ambulation in the last few days and we are still concerned for her safety and she is still impulsive. Abdominal pain secondary to likely pancreatitis vs somatic dysfunction to Left thoracic T10, present on admission, Resolved. - Patient has had no further abdominal pain in the last 24 hours status post OMT , patient's pain was most likely somatic dysfunction in nature. - patient tolerating regular diet. Possible GI bleed; present on admission; Stable -Given patient's history with alcohol abuse, must consider esophageal varacies. -Patient has not had any nausea, vomiting, or hematochezia in the past week. -H&H is stable and normal -Continue famotidine 20mg IV BID Elevated liver enzyme most likely secondary to alcoholism; present on admission ; resolving -Mild-moderate elevation in her lipase was identified 9.2 mm stone in the common bile duct. MRCP negative for stone. -Lipase Trending down previously 215 currently 110 -Continue to monitor Hypokalemia; present on admission; Resolved -Continue to monitor -Patient tolerating PO fluids, stop IV NS -Patient receiving Heparin for anticoagulation. -PT walks and encouraged ambulation with nurse or aid -Case Mgmt consulted for alcohol dependence counseling outpatient vs. rehab facility - I spoke with the son on the phone for 25 minutes discussing patient's status and overall plan as we approach patient's disposition. FULL CODE Disposition: Patient has not required benzodiazepine medications in the last 24-48 hours; however, patient deconditioned due to length of hospital stay and requires another day for PT, as well as allowing time for case management to establish outpatient care. patient will likely be discharged to home in the next 1-2 days. VTE Prophylaxis: Sub-Q Heparin (Unfractionated) Resuscitation Status: CPR: Attempt Resuscitation Attending Statement The patient was seen and examined together with Dr. Pillai on 02/23/17 and I have added additional information to the note above. Alfred Pillai DO Feb 23, 2017 14:52 Aurelia Mike DO Feb 27, 2017 11:58
[2017-02-23 16:24] VITALS: BP 128/85; PULSE 81; RESP 15; O2SAT 97
--- NOTE | 2017-02-23 19:34 | NUR ---
Ambulation/Bowel Meds/A&O/blind in left eye Discovered in conversation with pt that she is blind in her left eye after pt made comment about problems with depth perception. Cardiac: Pt denies CP. Tele: SR 60-80s Resp: Pt denies SOB, SPO2 97% on RA. GI/: Pt denies n/v mirilax and senna given this AM for constipation. Pt is passing gas and has gotten up to the bathroom to have a BM but without any luck. Neuro: A&Ox2 person and place, only to year for time. Pt is much more aware and clear today. She still has foggy inaccurate memories of the past few days, but is reorientable to her current situation. She is able to walk with assistance to the [facility] and has been ambulating in room with staff. This afternoon pt had a moment of disorientation, whe walked a short lap in the halls with the nurse and was able to regain orientation. Pt was teary and disconcerted by her momentary confusion and was reassured that it would improve with a few more days.
[2017-02-23 20:11] VITALS: BP 131/91; PULSE 74; RESP 15; O2SAT 99
[2017-02-24] MEDS: Heparin 5,000 Unit/mL Inj SUBQ SCH ×2 (00:09→08:30)
[2017-02-24 00:11] VITALS: BP 123/81; PULSE 68; RESP 16; O2SAT 98
[2017-02-24 03:26] VITALS: BP 128/81; PULSE 58; RESP 20; O2SAT 98
--- NOTE | 2017-02-24 03:51 | NUR ---
Mentation / Ambulation / Transfer Pt AOx3 to assessment this shift, though displays occasional confusion; once in bed to go to sleep, patient asked "So when do we get into port tomorrow?"; at 0000 when awoken for heparin injection, patient stated "I don't know where I am." Reoriented each time to situation. Prior to HS, pt ambulated around entire floor with FWW and SBA from staff. Tolerated well, with slight veering to right side due to L eye blindness. At approx. 0300 this AM, patient transferred to [facility] room 3008; all belongings transferred with patient and care transferred to Aisha Miller RN.
--- NOTE | 2017-02-24 06:00 | NUR ---
transfer Pt transferred to room 3008 and has been sleeping Addendum: 02/24/17 at 0642 by TASHIA ORELLANA RN throughout the shift. No s/s of pain or discomfort. bed alarm on for safety.
[2017-02-24] MEDS: Famotidine Inj 20 MG in IV Premix 1 EACH IV SCH (08:30)
[2017-02-24] MEDS: Multivit-Miner-Folic Acid-Iron Tablet PO SCH (09:04)
[2017-02-24] MEDS: Sodium Chloride LOK Flush 10 mL Syringe IVFLUSH SCH (09:04)
[2017-02-24 09:07] VITALS: BP 147/109; PULSE 74; RESP 16; O2SAT 97
[2017-02-24] MEDS ORDERED: Thiamine PO (11:57)
[2017-02-24] MEDS ORDERED: LISI-567 PO (11:57)
[2017-02-24] MEDS ORDERED: HYDR25TA4 PO (11:57)
--- NOTE | 2017-02-24 15:20 | NUR ---
Social Work: Discharge Data: Pt is on day 9 of hospitalization. EMR reviewed. Pt discussed in rounds. states pt ready for d/c today. ordered ASSISTANT FOREMAN set up HH for pt. ASSISTANT FOREMAN met with pt at bedside, HH choice list given. Pt prefers [facility]. ASSISTANT FOREMAN spoke with [facility], they are not taking new pt's at this time. ASSISTANT FOREMAN spoke with pt, [facility] preferred next. ASSISTANT FOREMAN spoke with [facility], access given. They reviewed and can accept pt. F2F from faxed to [facility]. ASSISTANT FOREMAN spoke with pt's son regarding support at home. He states that he is home until 2 every day and that he works close to home. He states there is a neighbor they may get to help support pt after d/c, as PT is recommending 06/02 support. ASSISTANT FOREMAN spoke with pt, gave [employer] book and pointed out page about private pay caregiving if needed. Pt feels comfortable going home today via POV with son with [facility] and resources on caregiving. Pt's son confirms that pt has a walker at home. No further d/c planning needs at this time. ASSISTANT FOREMAN will continue to follow if needs arise. Assessment: Pt who is independent at baseline, currently not capable of self care, falls risk. Plan: Pt will d/c home via POV today with son with [facility] for PT, ASSISTANT FOREMAN, and resources for in home caregiving. No further d/c planning needs at this time. ASSISTANT FOREMAN will continue to follow if needs arise. TALI [place] Addendum: 02/24/17 at 1526 by CHERELLE LYNN Pt was concerned about missing pants that she had at admission. ASSISTANT FOREMAN passed along concern to lithopone charger who states they will look at previous locations pt was at. TAL[facility] [place]
--- NOTE | 2017-02-24 15:28 | PCM.DIMED ---
Discharge Instructions Date of Service Feb 24, 2017 Dates of Hospitalization Feb 15, 2017 at 16:30 Discharge Diagnosis Discharge Diagnosis Alcohol withdrawl Diet Discharge Diet: Heart Healthy Activity Discharge Activity: No restrictions Call your provider Call your provider for: Fever or Chills, Shortness of breath, Chest pain Patient Instructions Follow-up with PCP in: 1 week Joe Coker MD Feb 24, 2017 15:27
--- NOTE | 2017-02-24 17:28 | NUR ---
Discharge Note Pt discharged, son here to transport home. IV catheter x 1 & telemetry box removed. Discharge instructions/medications discussed & understood. Closet unlocked by security, all belongings gathered, nothing left behind. Prescription to be hand carried to pharmacy. Son to make f/u appt w/ PCP. Discharge instructions also explained to son when he arrived to pick and shovel man patient. Patient transported out via wheelchair by RN. Patient stable, O x 3, CIWA 0. Home health w/ PT arranged prior to discharge.
--- NOTE | 2017-02-24 20:34 | PCM.DC.MED ---
Discharge Summary Date of Service Feb 24, 2017 Dates of Hospitalization Date of Hospital Admission Feb 15, 2017 at 16:30 Date of Discharge: Feb 24, 2017 Providers: Admitting Physician: Eliu Bill MD Primary Care Physician: Wiley Restrepo Attending Physician: Ashley Malik MD Diagnosis at Time of Discharge Diagnosis at Time of Discharge Alcohol withdrawl Procedures XRay, CTs & MRIs CT abdomen and pelvis 1. No definitive CT findings to explain left upper quadrant pain and vomiting. 2. Cholecystectomy. Common bile duct is dilated measuring 9.2 mm. Please correlate with serum bilirubin 3. No renal stone hydronephrosis. 4. Suboptimal examination due to lack of IV contrast. 5. Chronic compression deformity of L5 Dictated by: Rod Nelson M.D. on 02/15/2017 at 14:23 PROCEDURE: X-RAY BILATERAL RIBS, THREE VIEWS IMPRESSION: 1. Question of minimal infiltrate obscuring a portion of the medial aspect of the left hemidiaphragm on these films. Small pneumonia is suspected. Otherwise no abnormalities seen. If malignancy is suspected, nuclear medicine bone scan could be performed or alternatively breast MRI. Dictated by: Gabe TEMPLETON Interpreted: Ariel Peralta MD on 02/16/2017 at 14:15 PROCEDURE: X-RAY CHEST, TWO VIEWS IMPRESSION: Probable left lower lobe small pneumonia. Dictated by: Gabe TEMPLETON Interpreted: Ariel Peralta MD on 02/16/2017 at 14:25 MRI ABDOMEN WITHOUT CONTRAST IMPRESSION: The patient is status post cholecystectomy, and the caliber of the common duct is mildly prominent but considered within normal limits for age and post-cholecystectomy status. No common duct stone or mass is suspected. No additional abnormality is seen elsewhere. Dictated by: Jacob Flores M.D. on 02/17/2017 at 13:22 . Brief History Patient is uncooperative and able to give a history. History taken from previous records 66-year-old female with a history of alcoholic pancreatitis and pyelonephritis due to Escherichia coli present to the emergency department this afternoon complaining of nausea and diarrhea for 1 week. The patient has a history of alcohol abuse, with reports of 6 beers per day. Patient stated to the emergency room physician that she is also been vomiting that started today, dark bloody stools with clots that started this morning, and shaking chills. The patient denies fever. She also states that she has rib pain, either due to a "big Bear hug" or possibly due to vomiting. She also states that this pain is worse when she had pyelonephritis. She also reports decreasing alcohol intake from baseline. When asked when her last drink was she was unable to give an answer. In the emergency department CT of the abdomen/pelvis was taken and noted a 9.2 mm stone in the common bile duct. Labs revealed a lipase of 150 but no elevation of LFTs. Patient also had mild hypokalemia and all other labs were essentially normal. The toxicology report did not identify alcohol. TSH was not ordered. Hospital Course 66-year-old female with a history of alcohol abuse, alcoholic pancreatitis, and history of pyelonephritis presents with ongoing abdominal pain with associated nausea and vomiting, with associated symptoms of hematochezia versus melena. alcohol withdrawal due to alcohol dependence; present admission; Improving -Abdominal pain with nausea and vomiting in the setting of alcoholic who supposedly quit drinking abruptly - Urine Ethyl Glucuronide came back positive for recent alcohol use. -Toxicology did not identify alcohol in system at admission. H/o alcohol abuse as well as discussion with patient and son indicates increased alcohol use in the recent past. -patient improved, alert and oriented Abdominal pain secondary to likely pancreatitis vs somatic dysfunction to Left thoracic T10, present on admission, Resolved. - Patient has had no further abdominal pain in the last 24 hours. - patient tolerated regular diet. Possible GI bleed; present on admission; Stable -Given patient's history with alcohol abuse, must consider esophageal varacies. -Patient has not had any nausea, vomiting, or hematochezia in the past week. -H&H is stable and normal -Continue famotidine 20mg IV BID Elevated liver enzyme most likely secondary to alcoholism; present on admission ; resolving -Mild-moderate elevation in her lipase was identified 9.2 mm stone in the common bile duct. MRCP negative for stone. -Lipase Trended down previously 215 currently 110 Hypokalemia; present on admission; Resolved -Continue to monitor Patient denied chemical dependence counselling. Going home with home health for home pt Exam Vital Signs (Last) Date Time Temp Pulse Resp B/P Pulse Ox O2 Delivery O2 Flow Rate FiO2 02/24/17 13:33 Room Air 02/24/17 09:07 36.9 74 16 147/109 97 Test 02/15/17 10:30 02/15/17 12:15 02/16/17 05:50 02/20/17 02:40 Urine Color Yellow (YELLOW) Urine Appearance Hazy (CLEAR,HAZY) Urine pH 7.0 (5.0-8.0) Urine Specific Colby 1.015 (1.003-1.035) Urine Protein 30mg/dL (NEG,TRACE) Urine Glucose (UA) Negativemg/dL (NEGATIVE) Urine Ketones 40mg/dL (NEGATIVE) Urine Occult Blood Small (NEGATIVE) Urine Nitrite Negative (NEGATIVE) Urine Bilirubin Negative (NEGATIVE) Urine Urobilinogen Normalmg/dL (NORMAL) Urine Leukocyte Esterase Negative (NEGATIVE) Urine RBC 3-10/hpf (0-2) Urine WBC 0-5/hpf (0-5) Urine Epithelial Cells Occasional/hpf (NONE-MOD) Urine Crystals None seen (NONE SEEN) Urine Bacteria None/hpf (NONE-FEW) Urine Hyaline Casts None/lpf (NONE) Urine Granular Casts None seen (NONE SEEN) Urine Waxy Casts None seen (NONE SEEN) Urine Red Blood Cell Casts None seen (NONE SEEN) Urine White Blood Cell Casts None seen (NONE SEEN) Urine Mucus None seen (None Seen) Urine Trichomonas None seen (NONE SEEN) Urine Yeast None (NONE SEEN) Urinalysis Comment None Urine Culture Reflexed Not indicated Urine Ethyl Glucuronide Screen see comment Troponin T < 0.010ug/L (0.0-0.011) Procalcitonin 0.05ng/mL (0.00-0.08) Thyroid Stimulating Hormone (TSH) 2.180uIU/mL (0.450-4.500) Alcohols < 10mg/dL (0-10) Lactic Acid Level 0.6mmol/L (0.4-2.0) Alprazolam (Xanax) Level (.) Chlordiazepoxide (Librium) Level (.) Desmethylchlordiazepoxide Level (.) Benzodiazepine Confirmation (.) Clonazepam (Klonopin;Rivatril) Levl (.) 7-Amino Clonazepam Level (.) Diazepam (Valium) Level (.) Desmethyldiazepam Level (.) Flurazepam Level (.) Desalkylflurazepam Level (.) Lorazepam (Ativan) Level (.) Oxazepam (Serax) Level (.) Temazepam (Restoril) Level (.) Triazolam (Halcion) Level (.) Midazolam (Versed) Level (.) Neutrophils (%) (Auto) 50.2% (40-74) Lymphocytes (%) (Auto) 29.4% (14-46) Monocytes (%) (Auto) 14.2% (4-12) Eosinophils (%) (Auto) 5.2% (0-5) Basophils (%) (Auto) 0.5% (0-3) Prothrombin Time 9.4sec (8.1-12.5) Prothromb Time International Ratio 0.88ratio Phosphorus Level 3.6mg/dL (2.5-4.9) Magnesium Level 1.7mg/dL (1.6-2.6) Lipase 110U/L (13-60) Test 02/21/17 02:25 White Blood Count 4.3th/mm3 (3.8-10.1) Red Blood Count 3.98mil/mm3 (3.90-5.20) Hemoglobin 12.3g/dL (12.0-15.6) Hematocrit 37.3% (35.0-46.0) Mean Corpuscular Volume 93.7fL (81-100) Mean Corpuscular Hemoglobin 30.9pg (27.0-35.0) Mean Corpuscular Hemoglobin Concent 33.0% (32.0-37.0) Red Cell Distribution Width 13.8% (12.3-15.4) Platelet Count 232bil/L (150-400) Sodium Level 142mEq/L (134-144) Potassium Level 3.9mEq/L (3.5-5.2) Chloride Level 107mEq/L (97-108) Carbon Dioxide Level 20mmol/L (18-29) Blood Urea Nitrogen 8mg/dL (8-27) Creatinine 0.83mg/dL (0.57-1.00) Estimat Glomerular Filtration Rate 99mL/min (>59) Glucose Level 94mg/dL (60-99) Calcium Level 9.0mg/dL (8.5-10.1) Total Bilirubin 0.2mg/dL (0.0-1.2) Aspartate Amino Transf (AST/SGOT) 34U/L (0-50) Alanine Aminotransferase (ALT/SGPT) 24U/L (0-32) Alkaline Phosphatase 69U/L (25-165) Total Protein 5.8g/dL (6.4-8.4) Albumin 3.3g/dL (3.4-5.0) Discharge Medications Discharge Medications ([Thiamine]) 100 MG TABLET 100 MG PO DAILY Prescribed by: ASHLEY MALIK MD Calcium Carbonate/Vitamin D3 (Calcium + Vitamin D Tablet) 1 Each Tablet 1 EACH PO DAILY (Reported) Ferrous Sulfate (Ferrous Sulfate) 324 Mg Tablet. 324 MG PO DAILY Prescribed by: PARIS CARPENTER MD Hydrochlorothiazide (Hydrochlorothiazide) 25 Mg Tablet 25 MG PO DAILY Prescribed by: ASHLEY MALIK MD Lisinopril (Lisinopril) 20 Mg Tablet 20 MG PO DAILY Prescribed by: ASHLEY MALIK MD Multivits-Min/FA/Lycopene/Lut (Centrum Silver Tablet) 1 Each Tablet 1 EACH PO DAILY (Reported) Followup Plan Discharge Diet: Heart Healthy Discharge Activity: No restrictions Follow-up with PCP in: 1 week Time spent 35 mins Ashley Malik MD Feb 24, 2017 20:33
== END 2017-02-24 16:22 | disposition home health service (06) | DRG 897 ==
LOC: SED 09:53 → OBSVTOIN 16:30 → PCC 16:30 → MPC 02-24 03:12
PROVIDERS: ADMIT Internal Medicine; ATTEND Internal Medicine
DX: F10.239 Alcohol dependence with withdrawal, unspecified (principal); K92.1 Melena; Y90.0 Blood alcohol level of less than 20 mg/100 ml; E87.6 Hypokalemia; Z78.1 Physical restraint status; M99.02 Segmental and somatic dysfunction of thoracic region; R79.89 Other specified abnormal findings of blood chemistry

== ENCOUNTER 2017-03-29 18:37 | Emergency (ER) | payer OTHER ==
[~2017-03-29] VITALS: Ht 160 cm; Wt 52.3 kg
[~2017-03-29 18:37] MED LIST changes: +HYDR25TA4 PO; +LISI-567 PO; +Thiamine PO
[2017-03-29 18:47] VITALS: BP 156/108; PULSE 110; RESP 18; O2SAT 99
--- NOTE | 2017-03-29 19:37 | ED.REPORT ---
HPI-General Illness Date of Service Mar 29, 2017 ED Provider: Naresh Contreras MD Patient is a 66 year old female with a history of alcoholic pancreatitis who presents to the ED with her son due to vomiting for the past 5 days. The patient 's son reports that the patient hasn't been eating or drinking as much the past few days. When asked if she can identify where her pain is she says "I don't know". The patient's son reports that she has been drinking two 24 ounce beers a day. She denies suicidal ideations and states that she "does not care anymore if she gets help". The patient's other son has a terminal cancer and when asked if she is depressed, she replies "is that a joke?". Patient's son reports that she has not been able to sleep and wants to get her help. The patient was discharged from the hospital on 02/24/17 after having similar symptoms. The patient's son states that he is concerned that his mother is increasingly depressed and he wants her to get help. Nursing Notes Stated Complaint: VOMITING,DEHYDRATION, PAIN,CAN'T EAT Chief Complaint: Female Abdominal Pain Nursing Notes Reviewed: Yes Allergies: Coded Allergies: clindamycin (Verified Allergy, Unknown, 11/11/16) prednisone (Verified Allergy, Unknown, 11/11/16) cephalexin (Verified Adverse Reaction, Severe, jaw stiffness, body aches, nausea, dizziness, 11/11/16) took together with tramadol-unsure wich one of these two has caused a reaction tramadol (Verified Adverse Reaction, Severe, jaw stiffness, body aches, nausea, dizziness, 11/11/16) took together with cephalexin-unsure which one of these two medications caused a reaction acetaminophen (Verified Adverse Reaction, Intermediate, Nausea, "it does nothing", 11/11/16) aspirin (Verified Adverse Reaction, Intermediate, 11/11/16) ibuprofen (Verified Adverse Reaction, Intermediate, Nausea, "It doesn't work", 11/11/16) permethrin (Verified Adverse Reaction, Intermediate, Nausea, 11/11/16) codeine (Verified Adverse Reaction, Unknown, Nausea,Vomiting, flushed, ) morphine (Verified Adverse Reaction, Unknown, "It didn't work at all", ) Scheduled ([Thiamine]) 100 MG TABLET 100 MG PO DAILY Calcium Carbonate/Vitamin D3 (Calcium + Vitamin D Tablet) 1 Each Tablet 1 EACH PO DAILY Ferrous Sulfate (Ferrous Sulfate) 324 Mg Tablet. 324 MG PO DAILY Hydrochlorothiazide (Hydrochlorothiazide) 25 Mg Tablet 25 MG PO DAILY Lisinopril (Lisinopril) 20 Mg Tablet 20 MG PO DAILY Multivits-Min/FA/Lycopene/Lut (Centrum Silver Tablet) 1 Each Tablet 1 EACH PO DAILY General Time Seen by MD: 19:24 Chief Complaint Vomiting Hx Obtained From: Patient, Son Unable to Obtain Hx: Patient condition, Uncooperative Arrived By: Walk-in Onset Occurred: 5 days ago Symptom Duration: Intermittent Recent Healthcare: Recent doctor visit, Recent hospitalization Similar Sx Previous: Yes Past Medical History Past Medical History Notes: Dr. Wong Hendrix is PCP Does not want morphine, but reports that narcotics are fine. Cannot take Aspirin, Ibuprofen, or Tylenol. Aspirin causes rectum bleeding. Ibuprofen and Tylenol cause nausea and possible vomit. Past Medical History E. coli in her kidneys alcoholic Pancreatitis Reports: Cancer Past Surgical History Surgical removal of breast cancer Reports: Cholecystectomy Family History Son has cancer. Smoking History Never Smoker Social History Alcohol Use: In recovery Other Social History: Good social support Ambulatory Status Independent Review of Systems Unable to Obtain ROS Patient condition, Uncooperative Full Review of Systems GI: Reports: Nausea, Vomiting Psychiatric: Reports: Depression, Insomnia, Stress, Denies: Suicidal ideation Complete sys rev & neg: except as marked. Physical Exam Vital Signs Vital Signs Date Time Temp Pulse Resp B/P Pulse Ox O2 Delivery O2 Flow Rate FiO2 03/29/17 18:47 37.4 110 18 156/108 99 Room Air Initial VS: Reviewed General/Constitutional: Awake, Alert Behavior: Positive: Agitated Head / Eyes: Atraumatic, Normocephalic, PERRL, EOMI Respiratory / Chest: Atraumatic, Breath sounds NL, Breath sounds = bilat, No respiratory distress Cardiovascular: Heart rate NL, Regular rhythm, Heart sounds NL, No gallop, No murmurs, No rubs Abdomen: Atraumatic, Soft, Non-tender Lower Extremity / Pelvis / MS: Atraumatic, Full range of motion Skin: Atraumatic, Color NL, No rash, Warm, Dry Abnormal Mood/Affect: Positive: Depressed, Flat affect Re-Eval/Medical Decision Med Decision/Clinical Course Patient is a 66 year old female with a history of alcoholic pancreatitis who presents to the ED with her son due to vomiting for the past 5 days. The patient 's son reports that the patient hasn't been eating or drinking as much the past few days. When asked if she can identify where her pain is she says "I don't know". The patient's son reports that she has been drinking two 24 ounce beers a day. She denies suicidal ideations and states that she "does not care anymore if she gets help". The patient's other son has a terminal cancer and when asked if she is depressed, she replies "is that a joke?". Patient's son reports that she has not been able to sleep and wants to get her help. The patient was discharged from the hospital on 02/24/17 after having similar symptoms. The patient's son states that he is concerned that his mother is increasingly depressed and he wants her to get help. Here in the emergency department the patient is somewhat tachycardic though otherwise hemodynamically stable and afebrile. She seems to have a very flat affect and a labile mood. I had a very long discussion with the patient as well as her son expressing my concerns. I explained that we would need to start with laboratory studies to assess for any evidence of medical problems. I also had a long talk with them about the patient's recent stressors, her drinking and what appeared to me to be likely depression. I expressed that I thought the patient would really benefit from seeing our psychosocial rehabilitation counselor. The patient became agitated during our conversation stating "what does this kid know". While I initially had hoped that the patient would allow us to work her up and get help from social work she changed her mind during evaluation and stood up and walked out of the exam room with her son. Her son stated that he would try to convince her to come back however at this time she has refused any help or intervention. She does not appear intoxicated and is not suicidal. She seems to have insight into her situation and condition. I do not see that she is holdable against her well from a medical or psychiatric perspective. Her son is clearly quite concerned about her and I hope that they continue to seek help. I urged them to come back as the patient was eloping from the department. Due to the patient's abrupt elopement was unable to provide any discharge instructions or follow-up planning. Time of Eval: 19:50 Re-Evaluation/Progress Note: Patient has eloped. Discharge & Departure Primary Impression: Depression Depression Type: unspecified Qualified Code: F32.9 - Major depressive disorder, single episode, unspecified Additional Impressions: Acute situational disturbance Alcohol abuse Vomiting Vomiting type: unspecified Vomiting Intractability: unspecified Nausea presence: unspecified Qualified Code: R11.10 - Vomiting, unspecified Disposition: AGAINST MEDICAL ADVICE Discharge Condition All VS Reviewed: Yes Condition: Stable Referrals: Wiley Restrepo (PCP) Venecia Attestation Portions of this note were transcribed by Faustina Balbuena. I, Dr. Contreras personally performed the history, physical exam and medical decision-making; I reviewed and confirmed the accuracy of the information in the transcribed note. Signed by: Venecia Young, 03/29/17 copies to: Wiley Restrepo Beck O MD Mar 29, 2017 19:37 Paris Balbuena Mar 29, 2017 19:54
== END 2017-03-29 20:15 | disposition left against medical advice (07) ==
LOC: SED 18:37
DX: F32.9 Major depressive disorder, single episode, unspecified (principal); F43.0 Acute stress reaction; R11.10 Vomiting, unspecified; F10.10 Alcohol abuse, uncomplicated; Z85.3 Personal history of malignant neoplasm of breast; Z88.1 Allergy status to other antibiotic agents; Z88.5 Allergy status to narcotic agent; Z88.6 Allergy status to analgesic agent; Z88.8 Allergy status to other drugs, medicaments and biological substances

== ENCOUNTER 2017-04-05 05:39 | Emergency (ER) | payer OTHER ==
[~2017-04-05] VITALS: Ht 167.6 cm; Wt 54.5 kg
[2017-04-05 05:49] VITALS: BP 185/129; PULSE 104; RESP 14; O2SAT 95
--- NOTE | 2017-04-05 06:08 | ED.REPORT ---
HPI-General Illness Date of Service Apr 05, 2017 ED Provider: Teddy Edwards MD The pt is a 66 y/o female w/ a hx of depression, and alcohol abuse presenting to the ED via EMS due to alcohol withdrawal. Her last intake of alcohol was two days ago. One hour ago her BP was 185/126 when taken manually, 188/120 ten minutes after that, and 177/120 five minutes after that. The pt was at the [facility] for her alcohol withdrawal before she came here into the ED for high blood pressure readings. Denies hematemesis, fever, cough, headache , chest pain, or SOB. The pt reports her BP going up for roughly an hour when she stops drinking before returning to normal. Nursing Notes Stated Complaint: HIGH BLOOD PRESSURE Chief Complaint: Alcohol withdrawal Nursing Notes Reviewed: Yes Allergies: Coded Allergies: clindamycin (Verified Allergy, Unknown, 04/05/17) prednisone (Verified Allergy, Unknown, 04/05/17) cephalexin (Verified Adverse Reaction, Severe, jaw stiffness, body aches, nausea, dizziness, 04/05/17) took together with tramadol-unsure wich one of these two has caused a reaction acetaminophen (Verified Adverse Reaction, Intermediate, Nausea, "it does nothing", 04/05/17) aspirin (Verified Adverse Reaction, Intermediate, 04/05/17) ibuprofen (Verified Adverse Reaction, Intermediate, Nausea, "It doesn't work", 04/05/17) permethrin (Verified Adverse Reaction, Intermediate, Nausea, 04/05/17) codeine (Verified Adverse Reaction, Unknown, Nausea,Vomiting, flushed, ) morphine (Verified Adverse Reaction, Unknown, "It didn't work at all", ) Scheduled ([Thiamine]) 100 MG TABLET 100 MG PO DAILY Calcium Carbonate/Vitamin D3 (Calcium + Vitamin D Tablet) 1 Each Tablet 1 EACH PO DAILY Ferrous Sulfate (Ferrous Sulfate) 324 Mg Tablet.dr 324 MG PO DAILY Hydrochlorothiazide (Hydrochlorothiazide) 25 Mg Tablet 25 MG PO DAILY Lisinopril (Lisinopril) 20 Mg Tablet 20 MG PO DAILY Multivits-Min/FA/Lycopene/Lut (Centrum Silver Tablet) 1 Each Tablet 1 EACH PO DAILY Scheduled PRN Lorazepam (Lorazepam) 1 Mg Tablet 1 MG PO DIRECTED PRN PRN For Anxiety Take 1 tab every 6 hrs for 2 days. Then take 1 tab every 8 hrs for 1 day then take 1 tab twice daily then stop. General Time Seen by MD: 06:04 Chief Complaint Other (Alcohol withdrawal) Hx Obtained From: Patient, EMS Arrived By: Ambulance Sudden in Onset?: Yes Onset Occurred: Just prior to arrival Symptom Duration: Since onset Recent Healthcare: Recent doctor visit, Recent hospitalization Similar Sx Previous: Yes Past Medical History Past Medical History Notes: Dr. Leonel Hendrix is PCP Does not want morphine, but reports that narcotics are fine. Cannot take Aspirin, Ibuprofen, or Tylenol. Aspirin causes rectum bleeding. Ibuprofen and Tylenol cause nausea and possible vomit. Past Medical History Pyelonephritis-Escherichia coli alcoholic Pancreatitis Depression Denies: Diabetes mellitus, Hypertension Past Surgical History Surgical removal of breast cancer Reports: Cholecystectomy Family History Son has cancer. Smoking History Never Smoker Social History Alcohol Use: 1-3 per day Drug Use: Denies drug use Other Social History: Good social support Ambulatory Status Independent Review of Systems High blood pressure readings; Full Review of Systems Constitutional: Denies: Fever Respiratory: Denies: Non-productive cough, Shortness of breath Cardiovascular: Denies: Chest pain GI: Denies: Hematemesis Neurologic: Denies: Headache Complete sys rev & neg: except as marked. Physical Exam Vital Signs Vital Signs Date Time Temp Pulse Resp B/P Pulse Ox O2 Delivery O2 Flow Rate FiO2 04/05/17 06:59 99 19 155/97 97 Room Air 04/05/17 06:42 100 20 169/111 95 Room Air 04/05/17 05:49 36.9 104 14 185/129 95 Room Air Initial VS: Reviewed General/Constitutional: Well-developed, Well-nourished Head / Eyes: Atraumatic, Normocephalic, PERRL ENT: Mucous membranes moist, Conjunctiva normal, No scleral icterus Neck: Supple, Non-tender, Full range of motion Respiratory: Breath sounds normal, Clear to auscultation, No respiratory distress Cardiovascular: Regular rate & rhythm, Heart sounds normal, Intact distal pulses Extremities: Vascular intact, Neuro intact, No swelling, No tenderness Skin: Warm, Dry, No cyanosis Neurologic: Alert, Oriented, Nonfocal Psychiatric: Mood/affect normal, Behavior normal, Normal thought content Interpretation & Diagnostics Lab Results Interpretation Test 04/05/17 06:10 Hold Purple Top Tube Received (Received) Hold Blue Top Tube Received (Received) Hold Red Top Tube Received (Received) Hold [place] Top Tube Received (Received) Re-Eval/Medical Decision Med Decision/Clinical Course I suspect that her hypertension was part and parcel of her alcohol withdrawal. It has recovered nicely with modest doses of benzodiazepine. Source of Hx: Old records Time of Eval: 07:14 Re-Evaluation/Progress Note: Rechecked pt who is feeling better. Informed pt of plan for treatment. Pt understands and agrees with plan for treatment. F/U instructions and RTER warnings given. All questions addressed. Counseled Regarding: Diagnosis, Need for follow-up, When/why to return to ED Discharge & Departure Primary Impression: Alcohol withdrawal Complication of substance-induced condition: with unspecified complication Qualified Code: F10.239 - Alcohol dependence with withdrawal, unspecified Disposition: Home Discharge Condition All VS Reviewed: Yes Condition: Stable Patient Instructions: Alcohol Withdrawal (ED) Additional Instructions: I believe that your symptoms, specifically your very high blood pressure, are directly correlated with your alcohol withdrawal symptoms. If your blood pressure remains elevated (greater than 140/90) next week, I recommend follow- up with your regular medical provider to discuss ongoing treatment for hypertension. Of course I recommend that you continue to abstain from alcohol. Take the lorazepam (Ativan) as directed for withdrawal symptoms over the next 4 days. Referrals: Wiley Restrepo (PCP) James Hendrix MD Scribe Attestation Portions of this note were transcribed by Sandip Gonzalez. I, Dr. Edwards personally performed the history, physical exam and medical decision-making; I reviewed and confirmed the accuracy of the information in the transcribed note. copies to: James Hendrix MD; Wiley Restrepo Kirk H MD Apr 05, 2017 06:08 Sandip Gonzalez Apr 05, 2017 06:16
[2017-04-05 06:42] VITALS: BP 169/111; PULSE 100; RESP 20; O2SAT 95
[2017-04-05 06:59] VITALS: BP 155/97; PULSE 99; RESP 19; O2SAT 97
[2017-04-05] MEDS ORDERED: LORazepam 1 mg Tablet PO ONE (07:10)
[2017-04-05] MEDS ORDERED: LORA1TAB PO (07:16)
[2017-04-05 07:43] VITALS: BP 155/97; PULSE 99; RESP 19; O2SAT 97
== END 2017-04-05 07:44 | disposition home or self-care (01) ==
LOC: SED 05:39
DX: F10.239 Alcohol dependence with withdrawal, unspecified (principal); F32.9 Major depressive disorder, single episode, unspecified; Z88.1 Allergy status to other antibiotic agents; Z88.5 Allergy status to narcotic agent; Z88.6 Allergy status to analgesic agent; Z88.8 Allergy status to other drugs, medicaments and biological substances
CPT/HCPCS: 96374; 99284; J2060

== ENCOUNTER 2017-04-07 12:39 | Inpatient (IN) | payer OTHER ==
[~2017-04-07] VITALS: Ht 165.1 cm; Wt 52.0 kg
[~2017-04-07 12:39] MED LIST changes: +LORA1TAB PO
[2017-04-07 13:00] VITALS: BP 117/89; PULSE 90; RESP 18; O2SAT 99
[2017-04-07] MEDS ORDERED: Multivitamin w/Vit K Inj 10 ML, Thiamine Inj 100 MG, Folic Acid Inj 1 MG, Magnesium Sul... IV ONE ×5 (13:19)
--- NOTE | 2017-04-07 13:25 | ED.REPORT ---
HPI-Trauma Minor / Fall Date of Service Apr 07, 2017 ED Provider: Teddy Edwards MD Patient is a 66 year old female with a history of alcohol abuse and depression who presents to the ED due to a change in mental status per her son. She complains of right elbow pain. The patient's son reports that she fell about an hour ago and might have hit her head. She states that she had more than one beer to drink today. The patient has been in and out of detox treatments and has been trying to taper herself from alcohol. Nursing Notes Stated Complaint: HEAD INJURY/FOAMING AT MOUTH Chief Complaint: Multiple Trauma/Fall Nursing Notes Reviewed: Yes Allergies: Coded Allergies: clindamycin (Verified Allergy, Unknown, 04/05/17) prednisone (Verified Allergy, Unknown, 04/05/17) cephalexin (Verified Adverse Reaction, Severe, jaw stiffness, body aches, nausea, dizziness, 04/05/17) took together with tramadol-unsure wich one of these two has caused a reaction acetaminophen (Verified Adverse Reaction, Intermediate, Nausea, "it does nothing", 04/05/17) aspirin (Verified Adverse Reaction, Intermediate, 04/05/17) ibuprofen (Verified Adverse Reaction, Intermediate, Nausea, "It doesn't work", 04/05/17) permethrin (Verified Adverse Reaction, Intermediate, Nausea, 04/05/17) codeine (Verified Adverse Reaction, Unknown, Nausea,Vomiting, flushed, ) morphine (Verified Adverse Reaction, Unknown, "It didn't work at all", ) Scheduled ([Thiamine]) 100 MG TABLET 100 MG PO DAILY Calcium Carbonate/Vitamin D3 (Calcium + Vitamin D Tablet) 1 Each Tablet 1 EACH PO DAILY Ferrous Sulfate (Ferrous Sulfate) 324 Mg Tablet.dr 324 MG PO DAILY Hydrochlorothiazide (Hydrochlorothiazide) 25 Mg Tablet 25 MG PO DAILY Lisinopril (Lisinopril) 20 Mg Tablet 20 MG PO DAILY Multivits-Min/FA/Lycopene/Lut (Centrum Silver Tablet) 1 Each Tablet 1 EACH PO DAILY Scheduled PRN Lorazepam (Lorazepam) 1 Mg Tablet 1 MG PO DIRECTED PRN PRN For Anxiety Take 1 tab every 6 hrs for 2 days. Then take 1 tab every 8 hrs for 1 day then take 1 tab twice daily then stop. General Time Seen by MD: 13:00 Chief Complaint Fall Hx Obtained From: Patient, Son Arrived By: Walk-in Onset Occurred: Just prior to arrival Symptom Duration: Since onset Caused by: Fall on ground Location: Head Quality: Painful Severity: Current: Moderate Recent Healthcare: Recent doctor visit Similar Sx Previous: Yes Past Medical History Past Medical History Notes: Dr. Leonel Hendrix is PCP Does not want morphine, but reports that narcotics are fine. Cannot take Aspirin, Ibuprofen, or Tylenol. Aspirin causes rectum bleeding. Ibuprofen and Tylenol cause nausea and possible vomit. Past Medical History Pyelonephritis-Escherichia coli alcoholic Pancreatitis Depression Past Surgical History Surgical removal of breast cancer Reports: Cholecystectomy Family History Son has cancer. Smoking History Never Smoker Social History Alcohol Use: 1-3 per day Drug Use: Denies drug use Other Social History: Good social support Ambulatory Status Independent Review of Systems Review of Systems Note: +behavior change Musculoskeletal: Reports: Extremity pain Neurologic: Denies: Numbness, Problem walking, Weakness Complete sys rev & neg: except as marked. Physical Exam Initial Vital Signs Vital Signs (First) Date Time Temp Pulse Resp B/P Pulse Ox O2 Delivery O2 Flow Rate FiO2 04/07/17 13:00 36.6 90 18 117/89 99 Initial VS: Reviewed Head / Eyes: Atraumatic, Normocephalic Neck: Atraumatic, Supple Head / Eyes: Atraumatic, Normocephalic Respiratory / Chest: Atraumatic, Breath sounds NL, Breath sounds = bilat, No respiratory distress Cardiovascular: Heart rate NL, Regular rhythm, Heart sounds NL Upper Extremity / MS: Neurologic intact, Vascular intact Lower Extremity / Pelvis / MS: Atraumatic, Full range of motion Skin: Warm, Dry Mental Status: Positive: Confused Abnormal Mood/Affect: Positive: Anxious, Irritable Interpretation & Diagnostics Lab Results Interpretation Result Diagram: 04/07/17 1350 04/07/17 1350 Test 04/07/17 13:50 04/07/17 14:11 White Blood Count 6.2th/mm3 (3.8-10.1) Red Blood Count 3.91mil/mm3 (3.90-5.20) Hemoglobin 12.2g/dL (12.0-15.6) Hematocrit 34.9% (35.0-46.0) Mean Corpuscular Volume 89.3fL (81-100) Mean Corpuscular Hemoglobin 31.2pg (27.0-35.0) Mean Corpuscular Hemoglobin Concent 35.0% (32.0-37.0) Red Cell Distribution Width 12.9% (12.3-15.4) Platelet Count 203bil/L (150-400) Neutrophils (%) (Auto) 75.6% (40-74) Lymphocytes (%) (Auto) 14.5% (14-46) Monocytes (%) (Auto) 8.4% (4-12) Eosinophils (%) (Auto) 1.1% (0-5) Basophils (%) (Auto) 0.2% (0-3) Prothrombin Time 10.1sec (8.1-12.5) Prothromb Time International Ratio 0.95ratio Sodium Level 128mEq/L (134-144) Potassium Level 2.5mEq/L (3.5-5.2) Chloride Level 86mEq/L (97-108) Carbon Dioxide Level 21mmol/L (18-29) Blood Urea Nitrogen 9mg/dL (8-27) Creatinine 0.81mg/dL (0.57-1.00) Estimat Glomerular Filtration Rate 102mL/min (>59) Glucose Level 88mg/dL (60-99) Calcium Level 8.0mg/dL (8.5-10.1) Total Bilirubin 1.2mg/dL (0.0-1.2) Aspartate Amino Transf (AST/SGOT) 31U/L (0-50) Alanine Aminotransferase (ALT/SGPT) 21U/L (0-32) Alkaline Phosphatase 69U/L (25-165) Total Protein 6.7g/dL (6.4-8.4) Albumin 3.6g/dL (3.4-5.0) Alcohols 302mg/dL (0-10) Hold [place] Top Tube Received (Received) CT Head Interpretation IMPRESSION: No acute intracranial disease process. Dictated by: Kristina Rodriguez MD, PhD on 04/07/2017 at 13:41 Approved by: Kristina Rodriguez MD, PhD on 04/07/2017 at 13:44 Interpretation / Wet Read by: Interpret - Radiologist Re-Eval/Medical Decision Med Decision/Clinical Course This woman is agitated and intoxicated. With the low potassium and significant agitation and intoxication at this point in the setting of an attempt at home detox, I do not believe that sending this woman home is reasonable or appropriate. I think she needs to be observed in the hospital for what I expect to be very significant alcohol withdrawal and management of same in a supervised setting Re-Evaluation/Progress : Time of Eval: 15:00 Re-Evaluation/Progress Note: Discussed CT, labs and plan to admit. Patient understands and agrees to plan. All questions were addressed Consultation : Referral / Consult Name: Bhupendra Hawley Consulted With: Hospitalist Call Returned at: 15:35 Spot Sprayer: Agrees with eval, Agrees with plan, Accepts admit Counseled Regarding: Diagnosis, Lab results, Need for admission Discharge & Departure Impression: Primary Impression: Hyponatremia Additional Impressions: Hypokalemia Alcohol abuse Disposition: ADMITTED TO HOSPITAL Discharge Condition All VS Reviewed: Yes Condition: Stable Referrals: Wiley Restrepo (PCP) Venecia Attestation Portions of this note were transcribed by Faustina Balbuena. I, Dr. Edwards personally performed the history, physical exam and medical decision-making; I reviewed and confirmed the accuracy of the information in the transcribed note. Signed by: Venecia Young, 04/07/17 copies to: Wiley Restrepo Kirk H MD Apr 07, 2017 13:25 Paris Balbuena Apr 07, 2017 13:39
[2017-04-07 13:57] LABS: BASOPHILS % (AUTO) 0.2 % (0-3); EOSINOPHILS % (AUTO) 1.1 % (0-5); MONOCYTES % (AUTO) 8.4 % (4-12); Mean Corpuscular Hemoglobin 31.2 pg (27.0-35.0); Mean Corpuscular Volume 89.3 fL (81-100); NEUTROPHILS % (AUTO) 75.6 % (40-74); Platelet Count 203 bil/L (150-400)
[2017-04-07 14:15] LABS: INR 0.95 ratio
--- NOTE | 2017-04-07 14:45 | DRSVH ---
PROCEDURE: CT BRAIN WITHOUT CONTRAST ([id number]) INDICATIONS: trauma TECHNIQUE: Noncontrast 4.5 mm thick angled axial sections acquired from the foramen magnum to the vertex, with c oronal reformats. COMPARISON: None. FINDINGS: Image quality: Excellent. CSF spaces: Basal cisterns are patent. No extra-axial fluid collections. The ventricles are symmet tom in size and shape. Brain: No intracranial bleeds or masses. There is cerebral volume loss for age, with resultant vent ricular and sulcal prominence. There are periventricular and deep white matter chronic small vessel ischemic changes. There is intracranial internal carotid artery atherosclerosis. Skull and face: Calvarium and visualized facial bones appear intact, without suspicious lesions. Sinuses: Visualized sinuses and mastoids are clear. IMPRESSION: No acute intracranial disease process. Dictated by: Kristina Rodriguez MD, PhD on 04/07/2017 at 13:41 Approved by: Kristina Rodriguez MD, PhD on 04/07/2017 at 13:44
[2017-04-07] MEDS ORDERED: Potassium Chloride 20 mEq SR Tab (K < 3 & Creat <2) PO ONE (15:15)
[2017-04-07] MEDS ORDERED: KCl 40 mEq/500 mL D5W (K < 3 & Creat <2) IV ONE (15:15)
[2017-04-07] MEDS ORDERED: Alum-Mag Hydrox-Simeth 30 mL Suspension PO PRN (16:05)
[2017-04-07] MEDS ORDERED: Polyethylene Glycol (PEG) 17 Gm Powder PO PRN (16:05)
[2017-04-07] MEDS ORDERED: Ondansetron 2 mg/mL 2 mL Inj IVPUSH PRN (16:05)
[2017-04-07 16:15] VITALS: BP 104/67; PULSE 84; RESP 20; O2SAT 100
[2017-04-07] MEDS ORDERED: 0.9% Sodium Chloride 1,000 ML IV SCH (16:15)
[2017-04-07 16:51] VITALS: PULSE 82
[2017-04-07 16:57] LABS: APPEARANCE,URINE CLEAR (CLEAR,HAZY); COLOR,URINE YELLOW (YELLOW); OCCULT BLOOD,URINE SMALL (NEGATIVE); UROBILINOGEN,URINE NORMAL (NORMAL)
--- NOTE | 2017-04-07 17:14 | PCM.HPMED ---
Subjective Date of Service Apr 07, 2017 Primary Provider: Admitting Physician: Bhupendra Hawley Primary Care Physician: James Hendrix MD Attending Physician: Bhupendra Hawley Chief Complaint: Alcohol withdrawal History of Present Illness: Zora Levine is a 66 year old woman with a PMH of alcohol dependence and prior inpatient withdrawal who presents with a 1 day history of progressive weakness with a fall this morning. Her son reports that he was attempting to wean the patient off of alcohol at home by giving her progressively less alcohol every day; which he stated was generally around 2-3 beers per day. However, he realized the patient was sneaking alcohol in between his dosing. This morning he heard a thud in the downstairs bedroom where she is staying and found her down on the floor and too intoxicated to stand up. He brought her to the [facility] ED for inpatient detoxification. The patient herself reports that she has been formerly healthy and responsible her whole life, but is currently dealing with the emotional toll of her younger son dying from cancer. She states that in her weaker moments she wants to pretend that it is not happening and alcohol allows her some measure of peace in oblivion. She very much wants to quit, and to be fully present for her son and family through this difficult process, but that thus far the emotional toll of the situation has proven to be too much for her. In the ED the patient was found to have a blood alcohol level in excess of 300, with uncertain time since her last drink, but at least several hours. She is a patient who is familiar to both the ED provider and myself; and to both providers she appeared to be acutely altered at the time of presentation. Head CT was normal. Review of Systems: Comprehensive ROS negative except as listed above in the HPI Allergies Coded Allergies: clindamycin (Verified Allergy, Unknown, 04/05/17) prednisone (Verified Allergy, Unknown, 04/05/17) cephalexin (Verified Adverse Reaction, Severe, jaw stiffness, body aches, nausea, dizziness, 04/05/17) took together with tramadol-unsure wich one of these two has caused a reaction acetaminophen (Verified Adverse Reaction, Intermediate, Nausea, "it does nothing", 04/05/17) aspirin (Verified Adverse Reaction, Intermediate, 04/05/17) ibuprofen (Verified Adverse Reaction, Intermediate, Nausea, "It doesn't work", 04/05/17) permethrin (Verified Adverse Reaction, Intermediate, Nausea, 04/05/17) codeine (Verified Adverse Reaction, Unknown, Nausea,Vomiting, flushed, ) morphine (Verified Adverse Reaction, Unknown, "It didn't work at all", ) Home Medications ([Thiamine]) 100 MG TABLET 100 MG PO DAILY Calcium Carbonate/Vitamin D3 (Calcium + Vitamin D Tablet) 1 Each Tablet 1 EACH PO DAILY Ferrous Sulfate (Ferrous Sulfate) 324 Mg Tablet.dr 324 MG PO DAILY Hydrochlorothiazide (Hydrochlorothiazide) 25 Mg Tablet 25 MG PO DAILY Lisinopril (Lisinopril) 20 Mg Tablet 20 MG PO DAILY Multivits-Min/FA/Lycopene/Lut (Centrum Silver Tablet) 1 Each Tablet 1 EACH PO DAILY . Exam Vital Signs & I/O Vital Sign- Last 8 Hours Date Time Temp Pulse Resp B/P Pulse Ox O2 Delivery O2 Flow Rate FiO2 04/07/17 16:51 82 04/07/17 16:15 84 20 104/67 100 Room Air 04/07/17 13:00 36.6 90 18 117/89 99 Lab & Micro Results Laboratory Tests Test 04/07/17 13:50 04/07/17 14:11 04/07/17 14:15 White Blood Count 6.2th/mm3 (3.8-10.1) Red Blood Count 3.91mil/mm3 (3.90-5.20) Hemoglobin 12.2g/dL (12.0-15.6) Hematocrit 34.9% (35.0-46.0) Mean Corpuscular Volume 89.3fL (81-100) Mean Corpuscular Hemoglobin 31.2pg (27.0-35.0) Mean Corpuscular Hemoglobin Concent 35.0% (32.0-37.0) Red Cell Distribution Width 12.9% (12.3-15.4) Platelet Count 203bil/L (150-400) Neutrophils (%) (Auto) 75.6% (40-74) Lymphocytes (%) (Auto) 14.5% (14-46) Monocytes (%) (Auto) 8.4% (4-12) Eosinophils (%) (Auto) 1.1% (0-5) Basophils (%) (Auto) 0.2% (0-3) Prothrombin Time 10.1sec (8.1-12.5) Prothromb Time International Ratio 0.95ratio Sodium Level 128mEq/L (134-144) Potassium Level 2.5mEq/L (3.5-5.2) Chloride Level 86mEq/L (97-108) Carbon Dioxide Level 21mmol/L (18-29) Blood Urea Nitrogen 9mg/dL (8-27) Creatinine 0.81mg/dL (0.57-1.00) Estimat Glomerular Filtration Rate 102mL/min (>59) Glucose Level 88mg/dL (60-99) Calcium Level 8.0mg/dL (8.5-10.1) Total Bilirubin 1.2mg/dL (0.0-1.2) Aspartate Amino Transf (AST/SGOT) 31U/L (0-50) Alanine Aminotransferase (ALT/SGPT) 21U/L (0-32) Alkaline Phosphatase 69U/L (25-165) Total Protein 6.7g/dL (6.4-8.4) Albumin 3.6g/dL (3.4-5.0) Alcohols 302mg/dL (0-10) Hold Jiang Top Tube Received (Received) Urine Color Yellow (YELLOW) Urine Appearance Clear (CLEAR,HAZY) Urine pH 7.0 (5.0-8.0) Urine Specific [place] <1.005 (1.003-1.035) Urine Protein Negativemg/dL (NEG,TRACE) Urine Glucose (UA) Negativemg/dL (NEGATIVE) Urine Ketones Negativemg/dL (NEGATIVE) Urine Occult Blood Small (NEGATIVE) Urine Nitrite Negative (NEGATIVE) Urine Bilirubin Negative (NEGATIVE) Urine Urobilinogen Normalmg/dL (NORMAL) Urine Leukocyte Esterase Moderate (NEGATIVE) Urine RBC 0-2/hpf (0-2) Urine WBC 6-10/hpf (0-5) Urine Epithelial Cells Occasional/hpf (NONE-MOD) Urine Crystals None seen (NONE SEEN) Urine Bacteria Many/hpf (NONE-FEW) Urine Hyaline Casts None/lpf (NONE) Urine Granular Casts None seen (NONE SEEN) Urine Waxy Casts None seen (NONE SEEN) Urine Red Blood Cell Casts None seen (NONE SEEN) Urine White Blood Cell Casts None seen (NONE SEEN) Urine Mucus None seen (None Seen) Urine Trichomonas None seen (NONE SEEN) Urine Yeast None (NONE SEEN) Urinalysis Comment None Result Diagram: 04/07/17134904/07/171349 Review of Systems: Constitutional: Negative, except as otherwise mentioned in the history above. Ophthalmologic: Negative, except as otherwise mentioned in the history above. Cardiovascular: Negative, except as otherwise mentioned in the history above. Respiratory: Negative, except as otherwise mentioned in the history above. Gastrointestinal: Negative, except as otherwise mentioned in the history above. Genitourinary: Negative, except as otherwise mentioned in the history above. Musculoskeletal: Negative, except as otherwise mentioned in the history above. Neurological: Negative, except as otherwise mentioned in the history above. Psychiatric: Negative, except as otherwise mentioned in the history above. Hematologic/Lymphatic: Negative, except as otherwise mentioned in the history above. Allergic/Immunologic: Negative, except as otherwise mentioned in the history above. PMH Alcohol dependence Surgical History None significant Family History No significant family history reported. Social History Hx Alcohol Use: Yes Hx Substance Use: No Hx Tobacco Use: No Smoking Status: Never Smoker Exam Vital Signs Vital Sign - Last Date Time Temp Pulse Resp B/P Pulse Ox O2 Delivery O2 Flow Rate FiO2 04/07/17 16:51 82 04/07/17 16:15 20 104/67 100 Room Air 04/07/17 13:00 36.6 Exam Gen: A/O x3 intoxicated woman in NAD Neck: Supple, no JVD, Full ROM HEENT: PERRL, EOMI, no scleral icterus, mucous membranes dry CV: RRR, no murmurs rubs or gallops Resp: Lungs CTA BL, no wheezing rales or rhonchi Abd: Mildly tender to palpation in the LLQ, no rebound masses or guarding Extr: No clubbing cyanosis or edema Neuro: CN 2-12 grossly intact, no focal neurologic deficit Psych: Pleasant and appropriate mood and affect. Lab and Diagnostics Labs Item Value Date Time Red Blood Count 3.91 mil/mm3 04/07/171349 Mean Corpuscular Volume 89.3 fL 04/07/171349 Mean Corpuscular Hemoglobin 31.2 pg 04/07/171349 Mean Corpuscular Hemoglobin Concent 35.0 % 9/22/17 1350 Red Cell Distribution Width 12.9 % 04/07/17 1350 Neutrophils (%) (Auto) 75.6 % H 04/07/17 1350 Lymphocytes (%) (Auto) 14.5 % 04/07/17 1350 Monocytes (%) (Auto) 8.4 % 04/07/17 1350 Eosinophils (%) (Auto) 1.1 % 04/07/17 1350 Basophils (%) (Auto) 0.2 % 04/07/17 1350 Estimat Glomerular Filtration Rate 102 mL/min 04/07/17 1350 Calcium Level 8.0 mg/dL L 04/07/17 1350 Total Bilirubin 1.2 mg/dL 04/07/17 1350 Aspartate Amino Transf (AST/SGOT) 31 U/L 04/07/17 1350 Alanine Aminotransferase (ALT/SGPT) 21 U/L 04/07/17 1350 Alkaline Phosphatase 69 U/L 04/07/17 1350 Total Protein 6.7 g/dL 04/07/17 1350 Albumin 3.6 g/dL 04/07/17 1350 Prothrombin Time 10.1 sec 04/07/17 1350 Prothromb Time International Ratio 0.95 ratio 04/07/17 1350 Alcohols 302 mg/dL H 04/07/17 1350 Result Diagram: 04/07/17 1350 04/07/170 X-Rays, CTs and MRIs CT BRAIN WITHOUT CONTRAST IMPRESSION: No acute intracranial disease process. Dictated by: Kristina Rodriguez MD, PhD on 04/07/2017 at 13:41 Approved by: Kristina Rodriguez MD, PhD on 04/07/2017 at 13:44 . Assessment & Plan Zora Levine is a 66 year old woman with a PMH of alcohol withdrawal who presents with a 1 week history of progressive weakness and dizziness having undergone an attempted detoxification process directed by her son. She had a fall and hit her head at home the morning of admission, head CT negative for traumatic process. Acute Encephalopathy, POA. Active -Likely secondary to alcohol intoxication -JEVON on admission 302 -Did have a fall prior to admission in which she thinks she hit her head -Head CT negative in the ED Acute alcohol intoxication with anticipated withdrawal process, POA. Active -Patient underwent an inpatient withdrawal process in February which was quite difficult and she was very agitated at that time -CIWA protocol with IV Ativan as IV Valium is currently unavailable -Banana bag given in the ED, will repeat 1 more tomorrow -Continue home thiamine supplementation -CD assessment by social work -Will coordinate with her son who was attempting to detox the patient at home -Prior admission required a code Jiang and restraints Grief with possible adjustment disorder, POA, acute on chronic. Active -Patient is attempting to cope with the diagnosis of terminal cancer in her youngest child, using alcohol to forget the pain temporarily, but wants to quit to be present for him -Will consider psychiatric evaluation once appropriate -Patient suffering from anhedonia with little interest in food or other enjoyable activities Hypokalemia, POA, acute. Active -K 2.5 on admission -Likely secondary to poor PO intake and reported diarrhea -Will replete as necessary -Continue to track chemistries Diarrhea, POA, acute. Active -Likely secondary to poor PO intake of mostly liquids -Will consider C.diff PCR is diarrhea persists -Will use IVF until PO intake is adequate Patient Status: Anticipated length of stay >2 midnights due to severity of disease, complexity of treatment plan, and likelihood of adverse events. Pain Evaluation: Adequate Pain Control GI Prophylaxis: H2 chaya VTE Prophylaxis: Sub-Q Enoxaparin Resuscitation Status: Limited Interventions (No compressions/defibrillation) Time spent 60 min Attending Statement The patient was seen and examined together with Dr. Turner on 04/07/17 and I agree with the history, exam and plan as outlined in the note above. Jamar Turner DO Apr 07, 2017 17:14 Bhupendra Hawley Apr 07, 2017 18:27
[2017-04-07] MEDS: 0.9% Sodium Chloride 1,000 ML IV SCH (17:42)
[2017-04-07 18:34] VITALS: BP 97/61; PULSE 92; RESP 18; O2SAT 98
--- NOTE | 2017-04-07 18:44 | NUR ---
Admit Pt admitted to [facility] from ER at around 1630. Pt alert to self and place, unknown month and slightly confused. Pt CIWA is 3. All belongings brought with but pt states shes missing some including her vegetables. Pt up to standing scale 1 person ast due to unsteady gait. Med Rec completed in ER, most of the admit completed upon arrival will pass off to next shift what I was unable to finish. Pt oriented to room and call light, [place] alarm in place for safety. Close monitoring needed.
[2017-04-07 19:51] VITALS: BP 105/59; PULSE 94; RESP 18; O2SAT 99
[2017-04-07] MEDS ORDERED: KCl 40 mEq/D5W 500 mL 40 MEQ in IV Premix 500 EACH IV ONE (21:15)
[2017-04-07 22:57] VITALS: BP 120/80; PULSE 95; RESP 16; O2SAT 97
[2017-04-08] VITALS (8 sets, daily range): BP systolic 116–179; BP diastolic 67–103; PULSE 76–95; RESP 16–22; O2SAT 96–99
[2017-04-08] MEDS: 0.9% Sodium Chloride 1,000 ML IV SCH (03:35)
--- NOTE | 2017-04-08 07:39 | NUR ---
Pain/CIWA Pt c/o 7-8 pain in lower back and bilateral arms, states achy from fall at home. MD notified, ordered Tylenol which pt refused d/t GI symptoms from it. MD ordered Tramadol and adjusted dosing and frequency to help effectiveness for pt. Pt A&Ox3 and voicing needs appropriately. CIWA below 10 overnight. Potassium riders given per protocol and per MD who asked to be updated on results. Potassium WNL this morning.
[2017-04-08 07:57] LABS: Magnesium 2.2 mg/dL (1.6-2.6)
[2017-04-08] MEDS ORDERED: [UNRECOGNIZED DRUG - OTHER] PO SCH (08:30)
[2017-04-08] MEDS ORDERED: FOLIC ACID IV ONE ×5 (08:30)
[2017-04-08] MEDS ORDERED: [UNRECOGNIZED DRUG - OTHER] PO SCH (08:30)
[2017-04-08] MEDS ORDERED: MAGNESIUM SULFATE IV ONE ×5 (08:30)
[2017-04-08] MEDS ORDERED: VITAMIN D3 PO SCH (08:30)
[2017-04-08] MEDS ORDERED: [UNRECOGNIZED DRUG - OTHER] IV ONE ×5 (08:30)
[2017-04-08] MEDS ORDERED: Non-Formulary Medication (Multivits-Min/FA/Lycopene/Lut (Centrum Silver Tablet) 1 EACH) PO SCH (08:30)
[2017-04-08] MEDS ORDERED: CALCIUM CARBONATE PO SCH (08:30)
[2017-04-08] MEDS ORDERED: THIAMINE IV ONE ×5 (08:30)
[2017-04-08] MEDS: Multivit-Miner-Folic Acid-Iron Tablet PO SCH (08:54)
--- NOTE | 2017-04-08 11:55 | PCM.PNMED ---
Subjective Date of Service Apr 08, 2017 Subjective Denies any new issues/complaints Exam Vital Signs Vital Sign - Last Date Time Temp Pulse Resp B/P Pulse Ox O2 Delivery O2 Flow Rate FiO2 04/08/17 08:56 36.9 78 16 149/88 97 Room Air Intake and Output 04/07/17 04/07/17 04/08/17 Cumulative From/Thru 15:00 23:00 07:00 04/07/17 13:54 - 04/08/17 05:23 Intake Total 1000 ml 475 ml 1475 ml Output Total 1125 ml 1125 ml Balance 1000 ml -650 ml 350 ml Intake Oral 475 ml 475 ml IV Total 1000 ml 1000 ml Output Urine Total 625 ml 625 ml Urine/Stool Mix 500 ml 500 ml General: Alert, Oriented X3, Cooperative, No Acute Distress Head: Normal Eyes: Scleral Anicteric Nose: Mucous Membr Moist/[place] Mouth: Mucous Membr Moist/[place] Neck: Supple Chest & Lungs: Chest Wall Normal, Clear to auscultation & percussion Cardiovascular: Regular Rate/Rhythm Pulses: NL carotid, radial, femoral, DP, PT Abdomen: Non-tender, Non-distended, Normoactive bowel tones, Soft Extremities: No cyanosis/clubbing/edma bilat Neurological: Grossly Neurologically Intact, Cranial Nerves 2-12 Intact, Normal Speech Additional Information: Psych: Calm, appropriate IVs and Medications Medications Reviewed: Medications were reviewed in detail Lab and Diagnostics Result Diagram: 04/07/17 1350 04/08/17 0438 X-Rays, CTs and MRIs CT BRAIN WITHOUT CONTRAST IMPRESSION: No acute intracranial disease process. Dictated by: Kristina Rodriguez MD, PhD on 04/07/2017 at 13:41 Approved by: Kristina Rodriguez MD, PhD on 04/07/2017 at 13:44 . Assessment & Plan 66 year old woman with a PMH of alcohol withdrawal who presents with a 1 week history of progressive weakness and dizziness having undergone an attempted detoxification process directed by her son. She had a fall and hit her head at home the morning of admission Acute toxic/metabolic encephalopathy, POA. Active -Likely secondary to alcohol intoxication -JEVON on admission 302 -Did have a fall prior to admission in which she thinks she hit her head -Head CT negative in the ED Acute alcohol intoxication with anticipated withdrawal process, POA. Active -Patient underwent an inpatient withdrawal process in February which was quite difficult and she was very agitated at that time -CIWA protocol with IV Ativan as IV Valium is currently unavailable -Banana bag given -Continue home thiamine supplementation -CD assessment by social work Grief with possible adjustment disorder, POA, acute on chronic. Active -Patient is attempting to cope with the diagnosis of terminal cancer in her youngest child, using alcohol to forget the pain temporarily, but wants to quit to be present for him -Will consider psychiatric evaluation once appropriate -Patient suffering from anhedonia with little interest in food or other enjoyable activities Hypokalemia, POA, acute -Likely secondary to poor PO intake and reported diarrhea -Will replete as necessary -Continue to track chemistries Diarrhea, POA, acute. Active -Likely secondary to poor PO intake of mostly liquids -Will consider C.diff PCR if diarrhea persists -Will use IVF until PO intake is adequate Dispo: 2-4 more days pending alcohol withdrawal GI Prophylaxis: H2 chaya VTE Prophylaxis: Sub-Q Enoxaparin VTE Mechanical Devices: Intermittant Pneumatic CD Resuscitation Status: Limited Interventions (No compressions/defibrillation) Bhupendra Hawley Apr 08, 2017 11:55
--- NOTE | 2017-04-08 14:21 | NUR ---
Ambulation Pt up and to the bathroom today with slight SBA and has a steady gait today. [place] alarm still in place for safety and education given on the need to call for help when getting up.
[2017-04-09] VITALS (7 sets, daily range): BP systolic 107–156; BP diastolic 66–98; PULSE 76–100; RESP 16–22; O2SAT 96–98
--- NOTE | 2017-04-09 03:45 | NUR ---
Tele/Confusion/Denial Pt removed all her tele leads , said she didn't know she needed them on, wanted to take a shower. Thought staff was angry with her for taking leads off. Denied anxiety, but is not totally A&O, somewhat detached from her condition, doesn't acknowledge alcohol as a problem. Asked for sleep meds , scored CIWA 13, gave 2 Mg ativan after which pt denied any effect but as soon as left in peace was sleeping soundly. Room air, saline locked . Tele: SR-85 but will spike blood pressure and HR with agitation.
[2017-04-09] MEDS: Multivit-Miner-Folic Acid-Iron Tablet PO SCH (08:12)
--- NOTE | 2017-04-09 13:11 | PCM.PNMED ---
Subjective Date of Service Apr 09, 2017 Subjective Today the patient is slightly somnolent but otherwise states that she is feeling well. She continues to state that alcohol is not a problem for her and that she is not dependent upon it, despite this being her 2nd rather dramatic withdrawal process in the past few months. She is however much more tractable compared to prior alcohol withdrawal admission. Overnight the patient had episodes of confusion and disorientation. She was able to be re-directed by nursing staff and responded well to PRN Benzos per CIWA protocol. Exam Vital Signs Vital Sign - Last Date Time Temp Pulse Resp B/P Pulse Ox O2 Delivery O2 Flow Rate FiO2 04/09/17 11:57 36.9 85 18 124/86 96 Room Air Intake and Output 04/08/17 04/08/17 04/09/17 Cumulative From/Thru 15:00 23:00 07:00 04/07/17 13:54 - 04/09/17 05:16 Intake Total 1622 ml 2745 ml 750 ml 6592 ml Output Total 1125 ml Balance 1622 ml 2745 ml 750 ml 5467 ml Intake Oral 1100 ml 750 ml 2325 ml IV Total 1622 ml 1645 ml 4267 ml Output Urine Total 625 ml Urine/Stool Mix 500 ml # Voids 3 4 7 # Bowel Movements 0 0 Exam Gen: Alert but questionably oriented woman in NAD Neck: Supple, no JVD, Full ROM HEENT: PERRL, EOMI, no scleral icterus, mucous membranes dry CV: RRR, no murmurs rubs or gallops Resp: Lungs CTA BL, no wheezing rales or rhonchi Abd: Mildly tender to palpation in the LLQ, no rebound masses or guarding Extr: No clubbing cyanosis or edema Neuro: CN 2-12 grossly intact, no focal neurologic deficit Psych: Patient slightly confused and altered with tangential speech and perseveration on simple concepts . IVs and Medications Medications Reviewed: Medications were reviewed in detail Lab and Diagnostics Result Diagram: 04/07/17 1350 04/08/17 0438 X-Rays, CTs and MRIs CT BRAIN WITHOUT CONTRAST IMPRESSION: No acute intracranial disease process. Dictated by: Kristina Rodriguez MD, PhD on 04/07/2017 at 13:41 Approved by: Kristina Rodriguez MD, PhD on 04/07/2017 at 13:44 . Assessment & Plan 66 year old woman with a PMH of alcohol withdrawal who presents with a 1 week history of progressive weakness and dizziness having undergone an attempted detoxification process directed by her son. She had a fall and hit her head at home the morning of admission, CT was negative in the ED. Acute toxic/metabolic encephalopathy, POA. Active -Likely secondary to alcohol intoxication -JEVON on admission 302 -Did have a fall prior to admission in which she thinks she hit her head -Head CT negative in the ED Acute alcohol intoxication with acute withdrawal process, POA. Active -Patient underwent an inpatient withdrawal process in February which was quite difficult and she was very agitated at that time -CIWA protocol with IV Ativan as IV Valium is currently unavailable -Banana bag given in the ED -Continue home thiamine supplementation -CD assessment by social work Grief with possible adjustment disorder, POA, acute on chronic. Active -Patient is attempting to cope with the diagnosis of terminal cancer in her youngest child, using alcohol to forget the pain temporarily, but wants to quit to be present for him -Will consider psychiatric evaluation once appropriate -Patient suffering from anhedonia with little interest in food or other enjoyable activities Hypokalemia, POA, acute -Likely secondary to poor PO intake and reported diarrhea -Will replete as necessary -Continue to track chemistries Diarrhea, POA, acute. Active -Likely secondary to poor PO intake of mostly liquids -Will consider C.diff PCR if diarrhea persists -Will use IVF until PO intake is adequate Dispo: 1-3 more days pending alcohol withdrawal Pain Evaluation: Adequate Pain Control GI Prophylaxis: H2 chaya VTE Prophylaxis: Sub-Q Enoxaparin VTE Mechanical Devices: Intermittant Pneumatic CD Resuscitation Status: Limited Interventions (No compressions/defibrillation) Attending Statement The patient was seen and examined together with Dr. Turner on 04/09/17 and I agree with the history, exam and plan as outlined in the note above. Jamar Turner DO Apr 09, 2017 13:11 Bhupendra Hawley Apr 09, 2017 16:45
--- NOTE | 2017-04-09 17:30 | NUR ---
Social Work- Initial Assessment Data: See Initial Assessment intervention for additional information. Pt is a 66 year old female admitted for etoh intoxication and withdrawal per H&P. Pt is a readmit, admitted in the beginning of February for similar presentation. Pt's insurance is [employer]. Pt's PCP is Leonel Hendrix MD. Pt's NOK and designated personnel specialist for d/c planning is Dalton Levine, son. CORE CLEANER to complete CD assessment when order is received. SW met with pt at bedside to discuss discharge planning, SW role explained. Pt alert and oriented but seemed disjointed and forgetful. Pt's CIWA is 6 at this time. Per pt, she resides in [place] in a home with approx 16 steps to enter. Pt reports that she does not use a cane or walker any longer but has both at home. Pt drives. Pt declined any history of HH services, chart review reveals that pt was d/c home with [facility] services after last admission. Pt denies any SNF history, LTC or VA benefits. Pt has no DPOA on file, declined information related to this. Pt presenting with increasing weakness, pt may benefit from a PT evaluation while hospitalized. Unclear at this time how pt's etoh use is impacting her weakness. SW provided d/c planning checklist and wrote phone number on whiteboard. Pt will likely benefit from grief support group information as well as outpt CD resources. Pt was undergoing a home detox plan coordinated by her son, pt may benefit from more intensive services/support. Pt is likely to d/c home with her son to transport via POV, SW will continue to follow for d/c planning needs. Assessment: Pt who was previously independent with ADLs and self-care Plan: SW to follow up to complete CD assessment when order received. Pt will likely benefit from grief support resources as well as outpt CD resources. Pt's son appears to be a good support for pt. Pt is likely to d/c home with her son to transport via POV, SW will continue to follow. TALI Carlin Addendum: 04/09/17 at 1736 by SHAHRIAR JONES SS Amended: Links added.
--- NOTE | 2017-04-09 18:15 | NUR ---
CIWA/Mobility The pt received IV ativan twice during day shift, with the most recent CIWA score 6. The pt is able to move steadily around with room with a SBA for safety. A&Ox3 with some occasional confusion and VSS.
--- NOTE | 2017-04-09 23:11 | NUR ---
LANE/Tele Inappropriate affect, passive arguing , mild diaphoresis, Pt doesn't understand why she is a fall risk. Talks about her chickens and the need to go do her laundry. LANE mid teens, gave 4 Mg ativan IV. Tele, varies w activity and agitation SR 80-90's
[2017-04-10] VITALS (8 sets, daily range): BP systolic 127–147; BP diastolic 86–98; PULSE 80–109; RESP 16–22; O2SAT 96–99
[2017-04-10 05:05] LABS: BASOPHILS % (AUTO) 0.3 % (0-3); EOSINOPHILS % (AUTO) 2.7 % (0-5); Mean Corpuscular Hemoglobin 31.4 pg (27.0-35.0); Mean Corpuscular Volume 94.6 fL (81-100); NEUTROPHILS % (AUTO) 60.7 % (40-74); Platelet Count 206 bil/L (150-400)
[2017-04-10 05:35] LABS: Magnesium 1.8 mg/dL (1.6-2.6); Phosphorus 3.3 mg/dL (2.5-4.9)
[2017-04-10] MEDS: Multivit-Miner-Folic Acid-Iron Tablet PO SCH (08:39)
--- NOTE | 2017-04-10 12:54 | NUR ---
spiritual care: staff request Visited with pt today who was very groggy and tired. After nodding off a couple of times, she requested a visit tomorrow when she is feeling "more up to talking." offered a blessing before leaving the room. Spiritual care will continue to follow.
--- NOTE | 2017-04-10 15:07 | PCM.ADCARE ---
Jamar Turner DO 04/10/17 1507: Advance Care Planning Note Purpose of Encounter: To determine placement and goals of current therapy. Parties in Attendance: Dr. Marleen Turner The patient Zora Levine The patient's son Decisional Capacity: Patient is acutely altered with very questionable decisional capacity. Patient's son is fully cogent and decisional and acting as surrogate decision maker. Subjective: Patient states that she does not now why she has to be in the hospital, she states that she feels well and is not currently experiencing any withdrawal symptoms. When objective information of her withdrawal process is presented to her she changes subjects to why she would be able to continue the process at home as she had been doing. When confronted on how that was not working out for her or her son and led to this hospitalization she then stated that she would not be able to finish the process here because she finds the hospital to be intolerable. Her son notes that in the past they have pursued all alcohol treatment options short of prolonged admission to a rehabilitation center. He and his brother(who has undergone inpatient withdrawal and subsequent rehabilitation for alcohol in the past) are in active discussion as to what would be the best place for their mother following this admission. They feel that an involuntary commitment to inpatient rehabilitation would not be a humane option for their mother, and would like to pursue options for voluntary rehabilitation. The patient herself is very skeptical about the need for further rehabilitation , or indeed the need of her current admission. She further feels that additional rehabilitation would be unnecessary as she does not have a problem with alcohol. Objective: When the imperative for further inpatient alcohol withdrawal management was explained the patient's son expressed understanding of and agreement with the plan of care. The patient disagreed but was willing to tolerate the process a little longer at the behest of her son. Goals of Care Determinations: The patient's son will investigate potential rehabilitation facilities over the course of the remainder of her hospital stay. He is hopeful that following discharge he will be able to bring the patient to a voluntary rehab center such as [facility] in [place] which he has heard very good things about. CODE STATUS: Do not resuscitate, may trial limited period of intubation if necessary. Time Spent Adv.Care Planning: Time spent in discussion with patient and family greater than 35 minutes. Bhupendra Hawley 04/10/17 1756: Advance Care Planning Note Adv. Care Plan Documenation: The patient was seen and examined together with Dr. Turner on 04/10/17 and I agree with the history, exam and advanced care planning as outlined in the note above. Jamar Turner DO Apr 10, 2017 15:07 Bhupendra Hawley Apr 10, 2017 17:56
--- NOTE | 2017-04-10 15:16 | PCM.PNMED ---
Subjective Date of Service Apr 10, 2017 Subjective Today the patient expresses a desire to go home and continue her withdrawal process at home. Her son who was present in the room at the time of evaluation reinforced the imperative to stay in the hospital, and the patient reluctantly agreed to stay as long as she can tolerate it. Overnight the patient was increasingly agitated, but responsive to PRN medications. Exam Vital Signs Vital Sign - Last Date Time Temp Pulse Resp B/P Pulse Ox O2 Delivery O2 Flow Rate FiO2 04/10/17 12:42 37.1 109 16 127/90 98 Room Air Intake and Output 04/09/17 04/09/17 04/10/17 Cumulative From/Thru 15:00 23:00 07:00 04/07/17 13:54 - 04/10/17 06:36 Intake Total 640 ml 400 ml 7632 ml Output Total 450 ml 1575 ml Balance 190 ml 400 ml 6057 ml Intake Oral 640 ml 400 ml 3365 ml IV Total 4267 ml Output Urine Total 450 ml 1075 ml Urine/Stool Mix 500 ml # Voids 5 4 16 # Bowel Movements 0 0 Exam Gen: Alert but questionably oriented woman in NAD Neck: Supple, no JVD, Full ROM HEENT: PERRL, EOMI, no scleral icterus, mucous membranes dry CV: RRR, no murmurs rubs or gallops Resp: Lungs CTA BL, no wheezing rales or rhonchi Abd: Mildly tender to palpation in the LLQ, no rebound masses or guarding Extr: No clubbing cyanosis or edema Neuro: CN 2-12 grossly intact, no focal neurologic deficit Psych: Patient expressing frustration with her continued hospital stay, and skepticism as to the necessity of this admission. IVs and Medications Medications Reviewed: Medications were reviewed in detail Lab and Diagnostics Item Value Date Time Red Blood Count 3.31 mil/mm3 L 04/10/17 0440 Mean Corpuscular Volume 94.6 fL 04/10/17 0440 Mean Corpuscular Hemoglobin 31.4 pg 04/10/17 0440 Mean Corpuscular Hemoglobin Concent 33.2 % 04/10/17 0440 Red Cell Distribution Width 13.4 % 04/10/17 0440 Neutrophils (%) (Auto) 60.7 % 04/10/17 0440 Lymphocytes (%) (Auto) 25.0 % 04/10/17 0440 Monocytes (%) (Auto) 11.0 % 04/10/17 044 Eosinophils (%) (Auto) 2.7 % 04/10/17 044 Basophils (%) (Auto) 0.3 % 04/10/17439 Estimat Glomerular Filtration Rate 119 mL/min 04/10/17439 Calcium Level 8.5 mg/dL 04/10/17 044 Phosphorus Level 3.3 mg/dL 04/10/17439 Magnesium Level 1.8 mg/dL 04/10/17 044 Total Bilirubin 0.5 mg/dL 04/10/17 044 Aspartate Amino Transf (AST/SGOT) 25 U/L 04/10/17 044 Alanine Aminotransferase (ALT/SGPT) 19 U/L 04/10/17 044 Alkaline Phosphatase 74 U/L 04/10/17439 Total Protein 5.3 g/dL L 04/10/17439 Albumin 3.2 g/dL L 04/10/17439 Result Diagram: 04/10/1743904/10/17439 X-Rays, CTs and MRIs CT BRAIN WITHOUT CONTRAST IMPRESSION: No acute intracranial disease process. Dictated by: Kristina Rodriguez MD, PhD on 04/07/2017 at 13:41 Approved by: Kristina Rodriguez MD, PhD on 04/07/2017 at 13:44 . Assessment & Plan 66 year old woman with a PMH of alcohol withdrawal who presents with a 1 week history of progressive weakness and dizziness having undergone an attempted detoxification process directed by her son. She had a fall and hit her head at home the morning of admission, CT was negative in the ED. Acute toxic/metabolic encephalopathy, POA. Active -Likely secondary to alcohol intoxication -JEVON on admission 302 -Did have a fall prior to admission in which she thinks she hit her head -Head CT negative in the ED Acute alcohol intoxication with acute withdrawal process, POA. Active -Patient underwent an inpatient withdrawal process in February which was quite difficult and she was very agitated at that time -CIWA protocol with IV Ativan as IV Valium is currently unavailable -Banana bag given in the ED -Continue home thiamine supplementation -CD assessment by social work -Patient's family is actively searching for options for voluntary alcohol rehabilitation Grief with possible adjustment disorder, POA, acute on chronic. Active -Patient is attempting to cope with the diagnosis of terminal cancer in her youngest child, using alcohol to forget the pain temporarily, but wants to quit to be present for him -Will consider psychiatric evaluation once appropriate -Patient suffering from anhedonia with little interest in food or other enjoyable activities Hypokalemia, POA, acute -Likely secondary to poor PO intake and reported diarrhea -Will replete as necessary -Continue to track chemistries Diarrhea, POA, acute. Active -Likely secondary to poor PO intake of mostly liquids -Will consider C.diff PCR if diarrhea persists -Will use IVF until PO intake is adequate Disposition: 1-2 more days pending alcohol withdrawal process. Pain Evaluation: Adequate Pain Control GI Prophylaxis: H2 chaya VTE Prophylaxis: Sub-Q Enoxaparin VTE Mechanical Devices: Intermittant Pneumatic CD Resuscitation Status: Limited Interventions (No compressions/defibrillation) Attending Statement The patient was seen and examined together with Dr. Turner on 04/10/17 and I agree with the history, exam and plan as outlined in the note above. Jamar Turner DO Apr 10, 2017 15:16 Bhupendra Hawley Apr 10, 2017 17:57
[2017-04-11] VITALS (8 sets, daily range): BP systolic 113–127; BP diastolic 81–93; PULSE 82–95; RESP 16–18; O2SAT 94–98
[2017-04-11 03:52] LABS: BASOPHILS % (AUTO) 0.6 % (0-3); EOSINOPHILS % (AUTO) 4.2 % (0-5); MONOCYTES % (AUTO) 14.5 % (4-12); Mean Corpuscular Hemoglobin 31.3 pg (27.0-35.0); Mean Corpuscular Volume 94.8 fL (81-100); NEUTROPHILS % (AUTO) 48.3 % (40-74); Platelet Count 231 bil/L (150-400)
[2017-04-11 04:35] LABS: Magnesium 1.8 mg/dL (1.6-2.6); Phosphorus 4.6 mg/dL (2.5-4.9)
--- NOTE | 2017-04-11 06:00 | NUR ---
CIWA Pt able to rest most of shift, sitter at bedside for safety. Pt CIWA's between 3-5 all shift. Pt intermittently confused at times but is orient to place, self and time. Pt stated having pain 8/10 x1 this shift. Administered PRN tramadol and effective. VSS and Tele SR
[2017-04-11] MEDS: Multivit-Miner-Folic Acid-Iron Tablet PO SCH (08:12)
--- NOTE | 2017-04-11 11:43 | PCM.PNMED ---
Subjective Date of Service Apr 11, 2017 Subjective Today the patient is much more alert and appropriate, nursing did observe her having a conversation with the machine displaying her vitals so she is clearly not entirely through her withdrawal process, but is very much improved and will likely be stable for DC within 24 hours. The patient states that she is feeling well, a little depressed since she was hoping to DC today, but otherwise no focal complaints. No significant overnight events. Exam Vital Signs Vital Sign - Last Date Time Temp Pulse Resp B/P Pulse Ox O2 Delivery O2 Flow Rate FiO2 04/11/17 10:39 86 04/11/17 08:10 36.6 18 125/86 97 Room Air Intake and Output 04/10/17 04/10/17 04/11/17 Cumulative From/Thru 15:00 23:00 07:00 04/07/17 13:54 - 04/11/17 04:47 Intake Total 400 ml 8032 ml Output Total 1575 ml Balance 400 ml 6457 ml Intake Oral 400 ml 3765 ml IV Total 4267 ml Output Urine Total 1075 ml Urine/Stool Mix 500 ml # Voids 4 20 # Bowel Movements 0 Exam Gen: Alert but questionably oriented woman in NAD Neck: Supple, no JVD, Full ROM HEENT: PERRL, EOMI, no scleral icterus, mucous membranes dry CV: RRR, no murmurs rubs or gallops Resp: Lungs CTA BL, no wheezing rales or rhonchi Abd: Mildly tender to palpation in the LLQ, no rebound masses or guarding Extr: No clubbing cyanosis or edema Neuro: CN 2-12 grossly intact, no focal neurologic deficit Psych: Patient expressing some depression at her continued hospital stay IVs and Medications Medications Reviewed: Medications were reviewed in detail Lab and Diagnostics Item Value Date Time Red Blood Count 3.67 mil/mm3 L 04/11/17 033 Mean Corpuscular Volume 94.8 fL 04/11/17 033 Mean Corpuscular Hemoglobin 31.3 pg 04/11/17 033 Mean Corpuscular Hemoglobin Concent 33.0 % 04/11/17 033 Red Cell Distribution Width 13.8 % 04/11/17 0336 Neutrophils (%) (Auto) 48.3 % 04/11/17 0336 Lymphocytes (%) (Auto) 31.8 % 04/11/17 033 Monocytes (%) (Auto) 14.5 % H 04/11/17335 Eosinophils (%) (Auto) 4.2 % 04/11/17335 Basophils (%) (Auto) 0.6 % 04/11/17335 Estimat Glomerular Filtration Rate 108 mL/min 04/11/17335 Calcium Level 9.1 mg/dL 04/11/17335 Phosphorus Level 4.6 mg/dL 04/11/17335 Magnesium Level 1.8 mg/dL 04/11/17335 Total Bilirubin 0.4 mg/dL 04/11/17335 Aspartate Amino Transf (AST/SGOT) 34 U/L 04/11/17335 Alanine Aminotransferase (ALT/SGPT) 22 U/L 04/11/17335 Alkaline Phosphatase 70 U/L 04/11/17335 Total Protein 6.0 g/dL L 04/11/17335 Albumin 3.5 g/dL 04/11/17335 Result Diagram: 04/11/1733504/11/17335 X-Rays, CTs and MRIs CT BRAIN WITHOUT CONTRAST IMPRESSION: No acute intracranial disease process. Dictated by: Kristina Rodriguez MD, PhD on 04/07/2017 at 13:41 Approved by: Kristina Rodriguez MD, PhD on 04/07/2017 at 13:44 . Assessment & Plan 66 year old woman with a PMH of alcohol withdrawal who presents with a 1 week history of progressive weakness and dizziness having undergone an attempted detoxification process directed by her son. She had a fall and hit her head at home the morning of admission, CT was negative in the ED. Patient is approaching the point of medical stability and will likely be able to DC in 24 hours, where she will DC to remains to be seen as her son is actively looking for inpatient rehabilitation facilities. Acute toxic/metabolic encephalopathy, POA. Active -Likely secondary to alcohol intoxication -JEVON on admission 302 -Did have a fall prior to admission in which she thinks she hit her head -Head CT negative in the ED Acute alcohol intoxication with acute withdrawal process, POA. Active -Patient underwent an inpatient withdrawal process in February which was quite difficult and she was very agitated at that time -CIWA protocol with IV Ativan as IV Valium is currently unavailable -Banana bag given in the ED -Continue home thiamine supplementation -CD assessment by social work -Patient's family is actively searching for options for voluntary alcohol rehabilitation Grief with possible adjustment disorder, POA, acute on chronic. Active -Patient is attempting to cope with the diagnosis of terminal cancer in her youngest child, using alcohol to forget the pain temporarily, but wants to quit to be present for him -Will consider psychiatric evaluation once appropriate -Patient suffering from anhedonia with little interest in food or other enjoyable activities Hypokalemia, POA, acute -Likely secondary to poor PO intake and reported diarrhea -Will replete as necessary -Continue to track chemistries Diarrhea, POA, acute. Active -Likely secondary to poor PO intake of mostly liquids -Will consider C.diff PCR if diarrhea persists -Will use IVF until PO intake is adequate Disposition: 1 more day pending alcohol withdrawal process. Pain Evaluation: Adequate Pain Control GI Prophylaxis: H2 chaya VTE Prophylaxis: Sub-Q Enoxaparin VTE Mechanical Devices: Intermittant Pneumatic CD Resuscitation Status: Limited Interventions (No compressions/defibrillation) Attending Statement Patient has been seen and examined by myself with medical center representative and agree with above history, physical, assessment and plan. Jamar Turner DO Apr 11, 2017 11:43 Adrienne Hair MD Apr 11, 2017 15:37
[2017-04-11 12:53] LABS: APPEARANCE,URINE HAZY (CLEAR,HAZY); COLOR,URINE STRAW (YELLOW); OCCULT BLOOD,URINE TRACE (NEGATIVE); UROBILINOGEN,URINE NORMAL (NORMAL)
--- NOTE | 2017-04-11 13:45 | NUR ---
spiritual care: follow up Visited with pt today who was more alert and ready to converse today. Had a conversational visit about family and life. Offered a blessing before leaving the rooms. Spiritual care will continue to follow as needed.
--- NOTE | 2017-04-11 16:50 | NUR ---
Day Shift The pt began the day in a deep sleep with a sitter for safety at the bedside. Compared to yesterday, the pt was more relaxed and less impulsive. The sitter was DC'ed this afternoon. The pt does have occasional episodes of confusion and impulsivity, but is able to quickly reorient for safety. Most recent CIWA of 5. One 2mg dose of Ativan given this morning, with no more needed throughout the shift - CIWA scores <10 consistently. the pt is currently sleeping, but when awake is A&Ox3 with intermittent confusion and VSS. Will continue to monitor closely for safety.
--- NOTE | 2017-04-11 17:07 | NUR ---
Social Work: Continued Discharge Planning/Multidisciplinary Rounds D: Patient discussed in multidisciplinary rounds; the patient is not medically stable for discharge at this time. She is becoming more alert throughout her stay but is still clearing from her Ativan. ROAD TRAIN DRIVER met with the patient's son, Dalton. He expresses great concern for the patient's ETOH use. He reports that she has a lot of underlying depression about her other's son's cancer diagnosis and coping with the fact that he has limited time. Dalton has been researching treatment options supported through [place]. He is considering options and inquired how he might get the patient placed to inpatient treatment directly from the hospital. ROAD TRAIN DRIVER explained the first and foremost, patient would need to be willing to go to treatment. He acknowledges that this might be the biggest barrier. ROAD TRAIN DRIVER went on to explain that if the patient was agreeable, a facility contracted with her insurance would need to be located and it determined if they had open beds/taking referrals. If they were, ROAD TRAIN DRIVER could fax any necessary medical paperwork needed to initiate referral and possible acceptance to treatment. ROAD TRAIN DRIVER explained that per hospital policy and insurance regulations, patient could not be held any longer than was medically necessary meaning that the patient could not remain in the hospital until an inpatient bed became available. Dalton states that he understands this and will take the patient home if inpatient treatment is not an immediate option. Patient's son is going to contact [place] to inquire about which facilities might be able to accomodate the patient and begin the search for inpatient programs. He will notify ROAD TRAIN DRIVER if he locates one that he would a like a referral sent to. Pt's son states that he has been working with the patient over the last two weeks providing all of her care, meals, medications, managed alcohol intake and emotional support in attempts to wean her dependence on ETOH. He states that the patient had a stash of alcohol somewhere in the house which he has not been able to locate leading to the admission to [facility]. A: Pt who lives with her son and is I with mobility and ADLs. P: Evolving; Pt's son inquiring with insurance about inpatient treatment options. ROAD TRAIN DRIVER will meet with patient and son tomorrow to discuss discharge options and recommendations from her care team in regards to her drinking. TALI Wynne
[2017-04-12 02:34] VITALS: BP 118/80; PULSE 89; RESP 16; O2SAT 97
[2017-04-12 03:08] LABS: BASOPHILS % (AUTO) 0.6 % (0-3); MONOCYTES % (AUTO) 17.3 % (4-12); Mean Corpuscular Hemoglobin 31.3 pg (27.0-35.0); Mean Corpuscular Volume 93.8 fL (81-100); NEUTROPHILS % (AUTO) 47.8 % (40-74); Platelet Count 291 bil/L (150-400)
[2017-04-12 03:33] LABS: Magnesium 1.8 mg/dL (1.6-2.6); Phosphorus 4.9 mg/dL (2.5-4.9)
--- NOTE | 2017-04-12 05:58 | NUR ---
Mentation/CIWA Pt. has periods of being a/o; however had some extended periods of confusion, restlessness, anxiety. Required frequent reorientation, CIWA score increase to 10. 2mg Ativan given with good response, pt. was able to rest for extended period waking to gentle stimuli. Woke slightly confused this AM, and easily reoriented. VSS. Tele: SR 80's
[2017-04-12] MEDS: Multivit-Miner-Folic Acid-Iron Tablet PO SCH (08:07)
[2017-04-12 08:30] VITALS: BP 135/99; PULSE 78; RESP 16; O2SAT 98
[2017-04-12 10:06] VITALS: PULSE 90
--- NOTE | 2017-04-12 11:14 | PCM.DIMED ---
Discharge Instructions Date of Service Apr 12, 2017 Dates of Hospitalization Apr 07, 2017 at 15:49 Discharge Diagnosis Discharge Diagnosis Acute toxic/metabolic encephalopathy, POA. Active Acute alcohol intoxication with acute withdrawal process, POA. Active Grief with possible adjustment disorder, POA, acute on chronic. Active Hypokalemia, POA, acute Diarrhea, POA, acute. Active . Diet Discharge Diet: No restrictions Activity Discharge Activity: Limited until seen by PCP (Be up and about, try to balance rest and activity while you are still getting your feet back under you.) Call your provider Call your provider for: Fever or Chills, Shortness of breath, Bleeding, Chest pain, Vomitting, Excessive diarrhea, Weakness (unilateral), Other (Any new or concerning symptoms) Patient Instructions Patient Instructions As discussed I highly advise you to follow through with a rehabilitation program. Alcoholism is an exceptionally tough condition to treat and generally people that try to tackle it on their own don't have very good success. Treatment programs can provider your with the coping mechanisms, strategies, and accountability that many people need to fully quit alcohol. Follow-up plan Please follow up with your primary care provider Dr. Hendrix within 2 weeks. Follow-up Provider: James Hendrix MD Follow-up with PCP in: 2 weeks Jamar Turner DO Apr 12, 2017 11:14
[2017-04-12 11:47] VITALS: BP 143/99; PULSE 95; RESP 18; O2SAT 98
[2017-04-12] MEDS ORDERED: LORA1TAB PO (12:46)
--- NOTE | 2017-04-12 13:07 | NUR ---
Discharge Pt left with son at 1300. All discharge instructions gone over and understood, new prescription sent for Lorazepam. Pt had already had follow up apts made and aware of dates. All questions answered. All belongings except missing book taken with. IV and tele removed.
--- NOTE | 2017-04-12 13:39 | NUR ---
Social Work: Discharge/Multidisciplinary Rounds D: Pt discussed in multidisciplinary rounds; the patient is medically stable for discharge home. PROTECTIVE SIGNAL SUPERINTENDENT met with the patient at bedside. She does not wish to engage in inpatient treatment for her ETOH use. Patient expresses that she does not feel her drinking is problematic and that it helps her cope with stress. patient's son has expressed that he hopes the patient would be agreeable to treatment. He arrived at bedside and states that he intends to take patient home and continue to monitor her ETOH use. PROTECTIVE SIGNAL SUPERINTENDENT provided the patient and son with outpatient resources and encouraged the patient to consider reducing her ETOH use and engage in some kind of treatment. Patient and son express no other needs or concerns at this time. A: Pt who lives at home with her son. P: Pt to discharge home with son via POV and outpatient CD resources. TALI Wynne
--- NOTE | 2017-04-12 16:55 | PCM.DC.MED ---
Discharge Summary Date of Service Apr 12, 2017 Dates of Hospitalization Date of Hospital Admission Apr 07, 2017 at 15:49 Date of Discharge: Apr 12, 2017 Providers: Admitting Physician: Bhupendra Hawley Primary Care Physician: James Hendrix MD Attending Physician: Adrienne Hair MD Diagnosis at Time of Discharge Diagnosis at Time of Discharge Acute toxic/metabolic encephalopathy, POA. Active Acute alcohol intoxication with acute withdrawal process, POA. Active Grief with possible adjustment disorder, POA, acute on chronic. Active Hypokalemia, POA, acute Diarrhea, POA, acute. Active . Procedures XRay, CTs & MRIs CT BRAIN WITHOUT CONTRAST IMPRESSION: No acute intracranial disease process. Dictated by: Kristina Rodriguez MD, PhD on 04/07/2017 at 13:41 Approved by: Kristina Rodriguez MD, PhD on 04/07/2017 at 13:44 . Brief History Zora Levine is a 66 year old woman with a PMH of alcohol dependence and prior inpatient withdrawal who presents with a 1 day history of progressive weakness with a fall this morning. Her son reports that he was attempting to wean the patient off of alcohol at home by giving her progressively less alcohol every day; which he stated was generally around 2-3 beers per day. However, he realized the patient was sneaking alcohol in between his dosing. This morning he heard a thud in the downstairs bedroom where she is staying and found her down on the floor and too intoxicated to stand up. He brought her to the [facility] ED for inpatient detoxification. The patient herself reports that she has been formerly healthy and responsible her whole life, but is currently dealing with the emotional toll of her younger son dying from cancer. She states that in her weaker moments she wants to pretend that it is not happening and alcohol allows her some measure of peace in oblivion. She very much wants to quit, and to be fully present for her son and family through this difficult process, but that thus far the emotional toll of the situation has proven to be too much for her. In the ED the patient was found to have a blood alcohol level in excess of 300, with uncertain time since her last drink, but at least several hours. She is a patient who is familiar to both the ED provider and myself; and to both providers she appeared to be acutely altered at the time of presentation. Head CT was normal. Hospital Course 66 year old woman with a PMH of alcohol withdrawal who presents with a 1 week history of progressive weakness and dizziness having undergone an attempted detoxification process directed by her son. She had a fall and hit her head at home the morning of admission, CT was negative in the ED. Prior to discharge the patient shared an epiphany that she had been using her son's terminal illness as an excuse to indulge her drinking habit and forget about her grieving process for a moment, she now recognizes that this merely shifts her pain back upon her family which is also attempting to grieve for their gravely ill sibling; she expresses determination to seek continued treatment and counselling to stay clean and be available to her family in this hour of need. Acute toxic/metabolic encephalopathy, POA. Resolved -Likely secondary to alcohol intoxication -JEVON on admission 302 -Did have a fall prior to admission in which she thinks she hit her head -Head CT negative in the ED Acute alcohol intoxication with acute withdrawal process, POA. Resolved -Patient underwent an inpatient withdrawal process in February which was quite difficult and she was very agitated at that time -CIWA protocol with IV Ativan as IV Valium is currently unavailable -Banana bag given in the ED -Continued home thiamine supplementation -CD assessment by social work -Patient will enroll herself in an outpatient treatment program Grief with possible adjustment disorder, POA, acute on chronic. Active -Patient is attempting to cope with the diagnosis of terminal cancer in her youngest child, using alcohol to forget the pain temporarily, but wants to quit to be present for him -Patient suffering from anhedonia with little interest in food or other enjoyable activities Hypokalemia, POA, acute. Resolved -Likely secondary to poor PO intake and reported diarrhea -Will replete as necessary -Continue to track chemistries Diarrhea, POA, acute. Resolved -Likely secondary to poor PO intake of mostly liquids -Will consider C.diff PCR if diarrhea persists -Will use IVF until PO intake is adequate . Exam Vital Signs (Last) Date Time Temp Pulse Resp B/P Pulse Ox O2 Delivery O2 Flow Rate FiO2 04/12/17 11:47 95 18 143/99 98 Room Air 04/12/17 08:30 36.6 Exam Gen: A/O x3 pleasant cooperative woman in NAD Neck: Supple, no JVD, Full ROM HEENT: PERRL, EOMI, no scleral icterus, mucous membranes dry CV: RRR, no murmurs rubs or gallops Resp: Lungs CTA BL, no wheezing rales or rhonchi Abd: Mildly tender to palpation in the LLQ, no rebound masses or guarding Extr: No clubbing cyanosis or edema Neuro: CN 2-12 grossly intact, no focal neurologic deficit Psych: Pleasant and appropriately introspective mood and affect. . Test 04/07/17 13:50 04/07/17 14:11 04/07/17 21:51 04/11/17 11:46 Prothrombin Time 10.1sec (8.1-12.5) Prothromb Time International Ratio 0.95ratio Alcohols 302mg/dL (0-10) Hold Jiang Top Tube Received (Received) Hold Urine Received (Received) Urine Color Straw (YELLOW) Urine Appearance Hazy (CLEAR,HAZY) Urine pH 7.0 (5.0-8.0) Urine Specific [place] 1.005 (1.003-1.035) Urine Protein Negativemg/dL (NEG,TRACE) Urine Glucose (UA) Negativemg/dL (NEGATIVE) Urine Ketones Negativemg/dL (NEGATIVE) Urine Occult Blood Trace (NEGATIVE) Urine Nitrite Negative (NEGATIVE) Urine Bilirubin Negative (NEGATIVE) Urine Urobilinogen Normalmg/dL (NORMAL) Urine Leukocyte Esterase Large (NEGATIVE) Urine RBC 3-10/hpf (0-2) Urine WBC 11-50/hpf (0-5) Urine Epithelial Cells Occasional/hpf (NONE-MOD) Urine Crystals None seen (NONE SEEN) Urine Bacteria Many/hpf (NONE-FEW) Urine Hyaline Casts None/lpf (NONE) Urine Granular Casts None seen (NONE SEEN) Urine Waxy Casts None seen (NONE SEEN) Urine Red Blood Cell Casts None seen (NONE SEEN) Urine White Blood Cell Casts None seen (NONE SEEN) Urine Mucus None seen (None Seen) Urine Trichomonas None seen (NONE SEEN) Urine Yeast None (NONE SEEN) Urinalysis Comment None Urine Culture Reflexed Indicated Test 04/12/17 02:35 White Blood Count 3.4th/mm3 (3.8-10.1) Red Blood Count 3.68mil/mm3 (3.90-5.20) Hemoglobin 11.5g/dL (12.0-15.6) Hematocrit 34.5% (35.0-46.0) Mean Corpuscular Volume 93.8fL (81-100) Mean Corpuscular Hemoglobin 31.3pg (27.0-35.0) Mean Corpuscular Hemoglobin Concent 33.3% (32.0-37.0) Red Cell Distribution Width 13.6% (12.3-15.4) Platelet Count 291bil/L (150-400) Neutrophils (%) (Auto) 47.8% (40-74) Lymphocytes (%) (Auto) 30.4% (14-46) Monocytes (%) (Auto) 17.3% (4-12) Eosinophils (%) (Auto) 3.0% (0-5) Basophils (%) (Auto) 0.6% (0-3) Sodium Level 137mEq/L (134-144) Potassium Level 3.5mEq/L (3.5-5.2) Chloride Level 95mEq/L (97-108) Carbon Dioxide Level 29mmol/L (18-29) Blood Urea Nitrogen 9mg/dL (8-27) Creatinine 0.87mg/dL (0.57-1.00) Estimat Glomerular Filtration Rate 94mL/min (>59) Glucose Level 105mg/dL (60-99) Calcium Level 8.8mg/dL (8.5-10.1) Phosphorus Level 4.9mg/dL (2.5-4.9) Magnesium Level 1.8mg/dL (1.6-2.6) Total Bilirubin 0.3mg/dL (0.0-1.2) Aspartate Amino Transf (AST/SGOT) 22U/L (0-50) Alanine Aminotransferase (ALT/SGPT) 19U/L (0-32) Alkaline Phosphatase 68U/L (25-165) Total Protein 6.0g/dL (6.4-8.4) Albumin 3.6g/dL (3.4-5.0) Discharge Medications Discharge Medications ([Thiamine]) 100 MG TABLET 100 MG PO DAILY Prescribed by: ASHLEY MALIK MD Calcium Carbonate/Vitamin D3 (Calcium + Vitamin D Tablet) 1 Each Tablet 1 EACH PO DAILY (Reported) Ferrous Sulfate (Ferrous Sulfate) 324 Mg Tablet. 324 MG PO DAILY Prescribed by: PARIS CARPENTER MD Hydrochlorothiazide (Hydrochlorothiazide) 25 Mg Tablet 25 MG PO DAILY Prescribed by: ASHLEY MALIK MD Lisinopril (Lisinopril) 20 Mg Tablet 20 MG PO DAILY Prescribed by: ASHLEY MALIK MD Multivits-Min/FA/Lycopene/Lut (Centrum Silver Tablet) 1 Each Tablet 1 EACH PO DAILY (Reported) As needed Lorazepam (Lorazepam) 1 Mg Tablet 1 MG PO DIRECTED PRN PRN For Anxiety Take 1 tab every 6 hrs for 2 days. Then take 1 tab every 8 hrs for 1 day then take 1 tab twice daily then stop. Prescribed by: SHARMIN COLEY MD Lorazepam (Lorazepam) 1 Mg Tablet 1 MG PO Q6H PRN PRN For Anxiety Prescribed by: ADRIENNE HAIR MD Followup Plan Disposition: Home with plan for imminent outpatient alcohol rehabilitation Follow-up plan Please follow up with your primary care provider Dr. Hendrix within 2 weeks. Discharge Diet: No restrictions Discharge Activity: Limited until seen by PCP (Be up and about, try to balance rest and activity while you are still getting your feet back under you.) Patient Instructions As discussed I highly advise you to follow through with a rehabilitation program. Alcoholism is an exceptionally tough condition to treat and generally people that try to tackle it on their own don't have very good success. Treatment programs can provider your with the coping mechanisms, strategies, and accountability that many people need to fully quit alcohol. Follow-up Provider: James Hendrix MD Follow-up with PCP in: 2 weeks Time spent Time spent planning and coordinating discharge greater than 35 minutes. Attending Statement Patient has been seen and examined by myself with director of medical services and agree with above history, physical, assessment and plan. copies to: James Hendrix MD, David E DO Apr 12, 2017 16:54 Adrienne Hair MD Apr 12, 2017 17:15
== END 2017-04-12 13:00 | disposition home or self-care (01) | DRG 896 ==
LOC: SED 12:39 → PCC 15:49
PROVIDERS: ADMIT Internal Medicine; ATTEND Specialist
DX: F10.239 Alcohol dependence with withdrawal, unspecified (principal); G92 Toxic encephalopathy; F10.229 Alcohol dependence with intoxication, unspecified; Y90.8 Blood alcohol level of 240 mg/100 ml or more; F43.21 Adjustment disorder with depressed mood; E87.6 Hypokalemia; R19.7 Diarrhea, unspecified